=== PATIENT | male | born 1965 | race Caucasian/White ===

== ENCOUNTER 2019-12-02 18:20 | Emergency (ER) | payer MEDICARE, OTHER, SELFPAY ==
--- NOTE | ~2019-12-02 | CT_ITS ---
EXAMINATION: CT abdomen pelvis wo con DATE: 12/02/2019 19:25 INDICATION: Nephrolithiasis. TECHNIQUE: Computed tomography (CT) of the abdomen and pelvis was performed without intravenous contr ast. Automated exposure control and iterative reconstruction technique were employed. The dose-length product was 311.69 mGy-cm. COMPARISON: 01/06/2010 FINDINGS: Minimal dependent atelectasis in the bilateral lower lobes. Heart size is normal. No pericardial or p leural effusion. Small sliding-type hiatal hernia. Adjustable lap banding procedure with normal findi ng angle of 23 degrees. Liver, gallbladder, spleen, pancreas and bilateral adrenal glands are normal. 3 mm nonobstructing stone in the mid left kidney. 3 mm obstructing stone at the proximal right urete r with mild right hydronephrosis. There is mild colonic diverticulosis with a sigmoid predominance. There is no adjacent inflammatory change to suggest diverticulitis. Small bowel and appendix are norm al. Bladder is normal. No free intraperitoneal gas or fluid. No pathologically enlarged abdominal or pelvic lymphadenopathy. Mild lumbar levoscoliosis with mild to moderate spondylosis. IMPRESSION: 1. Obstructing 3 mm proximal right ureteral stone with mild right hydronephrosis. Reviewed, dictated and finalized at location A. IMPRESSION: 1. Obstructing 3 mm proximal right ureteral stone with mild right hydronephrosi s.
[2019-12-02 18:28] VITALS: BP 120/62; PULSE 62; RESP 20; TEMP 36.2; O2SAT 100
--- NOTE | 2019-12-02 19:14 | ED.ABDPAIN ---
HPI - Abdominal Pain General Chief Complaint: Urogenital-Male Stated Complaint: Poss kidney stone Time Seen by Provider: 12/02/19 18:28 Source: patient History of Present Illness HPI narrative: Patient is 54 years old male complaining of right flank pain started 3-hour prior to arrival to the emergency room. Associated with nausea and vomiting once. Pain radiating to right lower quadrant. Patient had similar symptoms secondary to kidney stones. Patient denies any fever, chills. Related Data Home Medications Medication Instructions Recorded Confirmed oxycodone 5 mg PO Q6H PRN 12/02/19 Allergies Allergy/AdvReac Type Severity Reaction Status Date / Time No Known Allergies Allergy Mild Verified 12/02/19 18:38 Review of Systems Review of Systems: Narrative: CONSTITUTIONAL: Denies fever, chills, or sweats. EYES: Denies visual changes, redness, or discharge. ENT: Denies rhinorrhea, congestion, sore throat, or otalgia. CARDIOVASCULAR: Denies chest pain, palpitations, or edema. RESPIRATORY: Denies cough or dyspnea. GASTROINTESTINAL: Right flank tenderness and pain GENITOURINARY: Denies dysuria or hematuria. SKIN: Denies rash or itching. MUSCULOSKELETAL: Denies back pain, joint pain, or myalgia. NEUROLOGIC: Denies headache, numbness, or weakness. PSYCHIATRIC: Denies anxiety or depression. PMFSH Social History Social History Gender identity (if verbalized by the patient): Male Exam Narrative: Exam Narrative: General appearance: Well-developed, well-nourished Skin: Normal color Head: Normocephalic, nontraumatic Eyes: Clear conjunctiva ENT: Oropharynx normal, ears normal, nose normal Neck: Supple, nontender Chest and respiratory: Airway patent, no respiratory distress, no accessory muscle use Heart: Regular rate/rhythm Abdomen: Soft, severe right flank tenderness, no organomegaly, quiet bowel sounds Vascular: Normal peripheral pulses, normal capillary refill. Musculoskeletal: Normal range of motion, nontender back Neurologic: Alert and oriented ?3, MANAGER WOUND CARE is normal as tested, no gross motor deficit Course Course Emergency Course: Improving Vital Signs Vital signs: Vital Signs Temperature 36.2 C L 12/02/19 18:28 Pulse Rate 62 12/02/19 18:28 Respiratory Rate 20 12/02/19 18:28 Blood Pressure 120/62 12/02/19 18:28 Pulse Oximetry 100 12/02/19 18:28 Temperature 36.2 C L 12/02/19 18:28 Pulse Rate 62 12/02/19 18:28 Respiratory Rate 20 12/02/19 18:28 Blood Pressure 120/62 12/02/19 18:28 Pulse Oximetry 100 12/02/19 18:28 MDM - Abdominal Pain MDM Narrative Medical decision making narrative: Kidney stone is my concern. My differential diagnosis as below. Labs, IV fluid, IV morphine and Zofran ordered. CT scan of the abdomen and pelvis without contrast ordered. Further plan to follow Differential Diagnosis Differential diagnosis: Likely abdominal pain, calculus of kidney, constipation and pancreatitis Lab Data Result diagrams: 12/02/19 19:32 12/02/19 19:32 Labs: Lab Results 12/02/19 12/02/19 12/02/19 Range/Units 19:32 19:32 19:32 WBC 12.3 H (4.5-10.0) K/mm3 RBC 4.47 L (4.6-6.20) M/mm3 Hgb 13.5 L (14.0-18.0) g/dL Hct 40.8 L (42.0-52.0) % MCV 91.3 (80-100) fl MCH 30.2 (26-34) pg MCHC 33.1 (32-36) g/dl RDW 14.6 H (11.5-14.5) % Plt Count 262 (150-375) k/mm3 MPV 10.4 (7.4-10.4) fl Immature Gran % (Auto) 0.3 (0-0.5) % Neut % (Auto) 77.7 H (45.5-73.1) % Lymph % (Auto) 15.9 L (18.3-44.2) % Chase % (Auto) 5.6 (2.6-8.5) % Eos % (Auto) 0.0 (0-4.4) %
[2019-12-02] MEDS: SODIUM CHLORIDE 0.9% IV 1,000 ML 999 ML IV CONT (19:20)
[2019-12-02] MEDS: MORPHINE SULFATE 4 MG/ML INJ IV PUSH (19:20)
[2019-12-02 19:39] LABS: Basophils Absolute Auto 0.1 K/mm3 (0.0-0.1); Basophils Percent Auto 0.5 % (0.2-1.2); Hematocrit 40.8 % (42.0-52.0); Hemoglobin 13.5 g/dL (14.0-18.0); Immature Granulocyte Absolute 0.04 K/mm3 (0.00-0.031); Immature Granulocyte Percent A 0.3 % (0-0.5); Lymphocytes Absolute Auto 1.96 K/mm3 (0.9-3.2); Lymphocytes Percent Auto 15.9 % (18.3-44.2); Mean Corpuscular HGB Conc 33.1 g/dl (32-36); Mean Corpuscular Hemoglobin 30.2 pg (26-34); Mean Corpuscular Volume 91.3 fl (80-100); Mean Platelet Volume 10.4 fl (7.4-10.4); Monocytes Absolute Auto 0.7 K/mm3 (0.1-0.6); Monocytes Percent Auto 5.6 % (2.6-8.5); Neutrophils Absolute Auto 9.6 K/mm3 (1.3-6.7); Neutrophils Percent Auto 77.7 % (45.5-73.1); Platelet Count Result 262 k/mm3 (150-375); Red Blood Count 4.47 M/mm3 (4.6-6.20); Red Cell Distribution Width 14.6 % (11.5-14.5); White Blood Count 12.3 K/mm3 (4.5-10.0)
[2019-12-02 19:42] LABS: Add Urine Microscopic? YES; Appearance Urine Clear (Clear); Bilirubin Urine Negative (Negative); Blood Urine 3+ (Negative); Color Urine Yellow (Yellow); Glucose Urine UA Negative (Negative); Ketones Urine Negative (Negative); Leukocyte Esterase Ur Negative LEU/UL (Negative); Mucus Urine Rare /lpf; Nitrate Urine Negative (Negative); Protein Urine 1+ mg/dL (Negative); RBC Urine >75 /hpf (0-2); Specific Grav Ur 1.023 (1.001-1.035); Urobilinogen Urine Negative mg/dL (<2.0)
[2019-12-02 19:50] LABS: Alanine Aminotransferase 29 U/L (4-50); Albumin Level 4.9 g/dL (3.5-5.1); Alkaline Phosphatase 91 U/L (38-126); Aspartate Amino Transferase 34 U/L (17-59); Bilirubin,Total 0.7 mg/dL (0.2-1.3); Blood Urea Nitrogen 17 mg/dL (9-20); Calcium 9.3 mg/dL (8.4-10.2); Carbon Dioxide 26 mmol/L (22-30); Chloride 103 mmol/L (98-107); Estimated CRCL calculation 74 ml/min; Estimated Glomerular Filt Rate > 60; Glucose 128 mg/dL (75-110); Lipase 74 U/L (23-300); Potassium 4.7 mmol/L (3.4-5.0); Sodium 137 mmol/L (137-145)
[2019-12-02] MEDS: HYDROMORPHONE HCL 1 MG/ML INJ 0.5 MG IV PUSH (20:07)
[2019-12-02 21:02] VITALS: BP 131/79; PULSE 74; RESP 19; TEMP 36.4; O2SAT 100
[2019-12-02] MEDS: KETOROLAC 30 MG/ML VIAL (*BKC) IV PUSH (21:24)
[2019-12-02 21:25] VITALS: BP 115/85; PULSE 79; RESP 18; TEMP 37.2; O2SAT 100
== END 2019-12-02 21:26 | disposition home or self-care (01) ==
PROVIDERS: Emergency Provider Emergency Medicine
DX: N13.2 Hydronephrosis with renal and ureteral calculous obstruction (principal)
CPT/HCPCS: 36415; 74176; 80053; 81001; 83690; 85025; 87086; 96361; 96374; 96375; 99284; J1170; J1885; J2270; J7030

== ENCOUNTER 2019-12-05 17:46 | Outpatient (CLI) | payer MEDICARE, OTHER, SELFPAY ==
--- NOTE | ~2019-12-05 | XR_ITS ---
EXAMINATION: XR abdomen/kub 1V INDICATION: Right-sided kidney stone TECHNIQUE: Supine views of the abdomen were obtained on 2 radiographs. COMPARISON: CT, 12/02/2019 FINDINGS: A 5 mm stone projects in the proximal right ureter between the right L4 and L5 transverse p rocesses. The previously described left kidney stone is not definitely identified. Gastric lap band a pparatus is noted. The bowel gas pattern is normal. There are phleboliths of the pelvis. IMPRESSION: 1. Unchanged 5 mm stone in the proximal right ureter. Reviewed, dictated and finalized at location A.
== END 2019-12-05 17:47 | disposition home or self-care (01) ==
PROVIDERS: Visit Provider Urology
DX: N20.1 Calculus of ureter (principal)
CPT/HCPCS: 74018

== ENCOUNTER 2019-12-08 01:39 | Day surgery (SDC) | payer MEDICARE, OTHER, SELFPAY ==
[2019-12-07 13:16] VITALS: BMI 29.9
[2019-12-08] VITALS (9 sets, daily range): BP systolic 100–130; BP diastolic 64–76; PULSE 55–83; RESP 12–18; TEMP 36.2–36.4; O2SAT 98–100
--- NOTE | ~2019-12-08 | XR_ITS ---
EXAMINATION: XR abdomen/kub 1V DATE: 12/08/2019 06:36 INDICATION: Right renal extracorporeal shockwave lithotripsy. TECHNIQUE: A supine view of the abdomen on 2 radiographs was obtained. COMPARISON: 12/05/2019 FINDINGS: No significant change in a 5 mm stone in the proximal right ureter projecting slightly cephalad to th e tip of the right transverse process of L3. Also unchanged is approximately 3 mm stone projecting ov er the mid to lower left kidney. Multiple phleboliths in the pelvis. Catheter insertion with laparosc opic gastric banding procedure projects over the mid abdomen. Normal bowel gas pattern. IMPRESSION: 1. Unchanged nephrolithiasis 3 mm left renal stone and 5 mm stone in the proximal right ureter. Reviewed, dictated and finalized at location A. IMPRESSION: 1. Unchanged nephrolithiasis 3 mm left renal stone and 5 mm stone in the proxim al right ureter.
--- NOTE | 2019-12-08 05:56 | ECG_ITS ---
Measurements Intervals [place] Rate: 74 P: 49 DC: 135 QRS: -18 QRSD: 106 T: 69 QT: 383 QTc: 427 Interpretive Statements SINUS RHYTHM MINIMAL Q WAVES- HIGH LATERAL LEADS BORDERLINE ECG Electronically Signed On 12-08-2019 7:44:27 CDT by Guillaume Godinez D.O.
--- NOTE | 2019-12-08 06:48 | WPDHPUPDATE1 ---
History and Physical Update Update Date/Time: 12/08/19 06:48 History and Physical has been reviewed, including an updated exam of the patient. There are NO changes in the patient's condition. Risks, benefits, and alternatives have been discussed and questions answered. Patient agrees to proceed with procedure.
[2019-12-08] MEDS: LACTATED RINGERS 1,000 ML 30 ML IV CONT (07:00)
--- NOTE | 2019-12-08 07:16 | P.PNAN_ITS ---
Anes - Initial Pre Proc Eval Procedure: Operation Date: 12/08/19 08:30 Proposed Procedures p Right Extracorporeal Shock Wave Lithotripsy - Lenny Correa MD Date/Time: 12/08/19 07:16 Surgeon: Lenny Correa MD Pre Op Diagnosis: right kidney stone Patient Data Age: 54 Gender: M Height: 1.8 m Weight: 97.52 kg Allergies Allergy/AdvReac Type Severity Reaction Status Date / Time No Known Allergies Allergy Mild Verified 12/07/19 13:16 Home Medications Medication Instructions Recorded Confirmed Type ondansetron 4 mg PO Q6H PRN #14 tablet 12/02/19 12/07/19 Rx oxycodone 5 mg PO Q6H PRN 12/02/19 12/07/19 History oxycodone-acetaminophen [Percocet] 1 tablet PO Q4H PRN #24 tablet 12/02/19 12/07/19 Rx tamsulosin [Flomax] 0.4 mg PO DAILY #10 cap 12/02/19 12/07/19 Rx Bitter Melon 900 mg PO DAILY 12/07/19 History Curcumin/Tumeric 1 cap PO DAILY 12/07/19 History Vitamin B-6 1 tablet PO DAILY 12/07/19 12/07/19 History lnbyofkwowl-obo-ezualciye-vitC 2 cap PO DAILY 12/07/19 12/07/19 History [Glucosamine Complex-MSM] lorazepam 0.5 mg PO TID PRN 12/07/19 12/07/19 History niacin 1 tablet PO DAILY 12/07/19 12/07/19 History Patient hx anesthesia problems: none Family hx anesthesia problems: none [facility] Past Medical History Medical History (Updated 12/08/19 @ 07:17 by Jamir Livingston MD) Anxiety Chronic narcotic use Gout Kidney stones, calcium oxalate Social History Social History Gender identity (if verbalized by the patient): Male Anes - Eval Final PreProcedure Day of Procedure 12/08/19 07:16 Patient weight: obese Heart: regular rate and rhythm Lungs: clear to auscultation and normal air movement Airway: Mallampati scale class II Neurological: alert and oriented Last oral intake: >/= 8 hours ASA classification: II Emergent: no Anesthetic plan: proceed Anesthesia type and monitoring: general LMA Informed Consent: The patient's anesthetic plan and its attendant risks and benefits were discussed with the patient/family/POA. Questions were solicited and answers provided to the satisfaction of the patient/family/POA.
[2019-12-08 07:32] LABS: INR 0.9; Prothrombin Time 11.6 Seconds (11.1-14.7)
[2019-12-08 07:33] LABS: Partial Thromboplastin Time 25.3 SECONDS (22.3-36.8)
[2019-12-08] MEDS: ceFAZolin 2 GM/D5W 50 ML 2 GM/50 ML BAG IVPB (08:27)
--- NOTE | 2019-12-08 09:02 | PM.PROC ---
Procedure Note - Detailed Date of procedure: 12/08/19 Pre-op diagnosis: right kidney stone Post-op diagnosis: same Procedure performed: Right ESWL Description of procedure: The patient was brought to the operative suite where he was placed in the supine position on the Dornier lithotripsy table. The focal point of the lithotripter was placed at an 8mm right mid-ureteral calculus. A total of 3000 shocks were delivered at a power setting of 4. There appeared to be good fragmentation of the stone. The patient tolerated the procedure well and was taken to the recovery room in good condition. Anesthesia: GLMA Surgeon: Lenny Correa MD Estimated blood loss (mL): 0 Drains: No Packing: No Pathology: none sent Complications: No immediate complications Condition: stable Disposition: PACU
== END 2019-12-08 11:14 | disposition home or self-care (01) ==
PROVIDERS: Visit Provider Urology
PROC: (CPT 50590; principal; 2019-12-08 08:30)
DX: N20.2 Calculus of kidney with calculus of ureter (principal)
CPT/HCPCS: 50590; 36415; 74018; 85610; 85730; 93005; J0690; J1100; J2250; J2405; J2704; J3010; J7120

== ENCOUNTER 2020-01-02 10:41 | Outpatient (CLI) | payer MEDICARE, OTHER, SELFPAY ==
--- NOTE | ~2020-01-02 | XR_ITS ---
XR abdomen/kub 1V DATE: 01/02/2020 11:07 INDICATION: Urinary tract stone TECHNIQUE: AP projection, 2 views COMPARISON: 12/08/2019 KUB 12/02/[address] abdomen pelvis FINDINGS: Gastric band device is again noted overlying the abdomen. Previously reported 5 mm calcification in the proximal right ureter is no longer detected. No other o bvious urinary tract calcification is noted radiographically. Stable bilateral calcified pelvic phleboliths. The bowel gas pattern is unremarkable, without evidence of obstruction. The psoas shadows are intact. No visceromegaly. Mild thoracic and lumbar scoliosis. IMPRESSION: The proximal right ureteral calcified calculus noted on 12/08/2019 KUB is no longer eviden t Reviewed, dictated and finalized at Location A. Reviewed, dictated and finalized at location B. IMPRESSION: The proximal right ureteral calcified calculus noted on 12/08/2019 K UB is no longer evident
== END 2020-01-02 10:42 | disposition home or self-care (01) ==
PROVIDERS: Visit Provider Urology
DX: N20.1 Calculus of ureter (principal)
CPT/HCPCS: 74018

== ENCOUNTER 2020-04-22 11:31 | Outpatient (CLI) | payer MEDICARE, OTHER, SELFPAY ==
--- NOTE | ~2020-04-22 | XR_ITS ---
XR abdomen/kub 1V DATE: 04/22/2020 11:54 INDICATION: Calcium kidney stone TECHNIQUE: 2 AP views COMPARISON: 01/02/2020 KUB 12/08/2019 KUB FINDINGS: Upper scapular band apparatus overlies the abdomen. Bilateral calcified pelvic phleboliths are noted. No apparent right urinary tract calcified calculus is evident; no significant change since 01/02/2020. The calcified density overlying the proximal right ureter on 12/08/2019 is again not evident, as noted on 01/02/2020 KUB. There is a likely small calcified calculus overlying the mid to lower left kidney, corresponding to a similar nonobstructing calculus noted in similar location on 12/02/2019 CT examination. Nonspecific bowel gas pattern; there are some nondilated gas containing small bowel segments overlyin g particularly left upper and midabdomen and right mid abdomen, but no obstruction is suggested. Ther e is a large amount fecal material in the colon. IMPRESSION: No obvious right urinary tract calcified calculus Faintly calcified small mid to lower left renal nonobstructing calculus is likely still present. Reviewed, dictated and finalized at Location A. Reviewed, dictated and finalized at location A. CATCHER IMPRESSION: No obvious right urinary tract calcified calculus Faintly calcified small mid to lower left renal nonobstructing calculus is like ly still present.
== END 2020-04-22 11:32 | disposition home or self-care (01) ==
LOC: ANHIMG 11:40
PROVIDERS: Visit Provider Urology
DX: N20.0 Calculus of kidney (principal)
CPT/HCPCS: 74018

== ENCOUNTER 2020-07-02 11:48 | Outpatient (CLI) | payer OTHER, MEDICARE, SELFPAY ==
--- NOTE | ~2020-07-02 | XR_ITS ---
EXAMINATION: XR shoulder RT min 2V DATE: 07/02/2020 12:41 INDICATION: Right shoulder pain. TECHNIQUE: 4 views of right shoulder were obtained. COMPARISON: None. FINDINGS: Bone alignment is normal. No fracture. There is mild osteoarthritis of glenohumeral joint a nd acromioclavicular joint. There are suture anchors in humeral head. There is a loose body in the gl enohumeral joint versus subacromial/subdeltoid bursa. IMPRESSION: 1. Mild polyarticular osteoarthritis. 2. Loose body, which may be in the glenohumeral joint or subacromial/subdeltoid bursa. Reviewed, dictated and finalized at location B. ENT CARE ASSISTANT
== END 2020-07-02 11:49 | disposition home or self-care (01) ==
DX: M25.511 Pain in right shoulder (principal)
CPT/HCPCS: 73030

== ENCOUNTER → 2021-09-04 15:56 | Outpatient (CLI) | payer OTHER, MEDICARE, SELFPAY ==
--- NOTE | ~2021-09-04 | MR_ITS ---
EXAMINATION: MR shoulder RT wo con DATE: 09/04/2021 17:18 INDICATION: Right shoulder pain TECHNIQUE: Magnetic resonance imaging (MRI) of the right shoulder was performed without intravenous c ontrast. Sequences included axial PD-weighted FS FSE, coronal oblique PD-weighted FS FSE, coronal obl ique T2-weighted FS FSE, sagittal PD-weighted FS FSE, and sagittal T1-weighted SE. COMPARISON: Right shoulder radiographs dated 07/02/2020 FINDINGS: Coracoacromial arch: Postoperative change of prior acromioplasty with thinning of the acromion. Mild acromioclavicular ost eoarthritis. Rotator cuff: Postoperative change of prior rotator cuff repair with nonmetallic suture anchor tracks along the sup erior facet footplate of the supraspinatus tendon and a couple metallic suture anchors along the more posterior middle and posterior facet footplates of the infraspinatus tendon. There is attenuation of the distal supraspinatus tendon and severe attenuation of the distal infraspinatus tendon but withou t a definitive fluid signal intensity recurrent full-thickness tear defect. There is relative thicken ing of the more medial aspect of the infraspinatus tendon consistent with retraction of a partially t orn portion of the tendon. It is unclear to what extent the attenuated appearance of the tendons refl ect the initial postoperative state or whether there has been progression of partial-thickness tearin g. The teres minor tendon is normal. Moderate subscapularis tendinopathy with multiple foci of suscep tibility artifact along the distal tendon likely related to prior surgery. No discrete subscapularis tendon tear identified. There is some medial retraction and mild fatty atrophy of the visualized por tion of the infraspinatus muscle belly. Biceps tendon, glenoid labrum and glenohumeral cartilage: Tear of the long head biceps tendon with no discernible intra-articular portion of the tendon and wit h significant attenuation but still relatively taut appearance of the extra articular portion of the tendon at the intertubercular groove. The relatively taut appearance of the tendon as well as a likel y suture anchor tract at the floor of the cephalad aspect of the intertubercular groove would be cons istent with prior bicipital tenodesis. Glenoid labrum is normal. Mild glenohumeral osteoarthritis wit h partial thickness cartilage loss with some chondral surface irregularity along the humeral head mos t prominent at the apex and inferomedial margin and mild partial thickness cartilage loss with smooth chondral surface at the cephalad aspect of the glenoid. Fluid: Physiologic amount of fluid in the glenohumeral joint and biceps tendon sheath. No loose osteochondr al bodies. No abnormal fluid in the subacromial/subdeltoid bursa to suggest bursitis. Bones: No fracture or pathologic marrow replacing process. IMPRESSION: 1. Postoperative change of prior rotator cuff repair of the supraspinatus and infraspinatus tendons w ith residual attenuation of the distal aspect of both tendons, severe of the infraspinatus tendon. In the absence of prior postoperative imaging for comparison and is unclear whether this reflects the i mmediate postoperative state of the repair or where there has been recurrent partial thickness tearin g. 2. Additional postoperative change of prior acromioplasty and bicipital tenodesis. 3. Mild glenohumeral and acromioclavicular osteoarthritis. Reviewed, dictated and finalized at location A. IMPRESSION: 1. Postoperative change of prior rotator cuff repair of the supraspinatus and i nfraspinatus tendons with residual attenuation of the distal aspect of both ten dons, severe of the infraspinatus tendon. In the absence of prior postoperative imaging for comparison and
== END ==
PROVIDERS: Visit Provider Pain Medicine Interventional Pain Medicine
DX: M25.511 Pain in right shoulder (principal); Z98.890 Other specified postprocedural states; M19.011 Primary osteoarthritis, right shoulder
CPT/HCPCS: 73221

== ENCOUNTER 2022-04-27 18:18 | Emergency (ER) | payer MEDICARE, SELFPAY ==
[2022-04-27 18:30] VITALS: BP 134/84; PULSE 71; RESP 16; TEMP 36.4; O2SAT 99
--- NOTE | 2022-04-27 19:08 | ED.URI ---
HPI - URI/Sore Throat General Chief Complaint: Upper Respiratory Infection Stated Complaint: Cough, Sinus Time Seen by Provider: 04/27/22 19:04 Source: patient and RN notes reviewed Mode of arrival: ambulatory Limitations: no limitations History of Present Illness HPI Narrative: 56-year-old male presents with concern for a day history sinus congestion, drainage, pain, persistent cough, general malaise. Reports he has been taking some hwbp-ifp-xapbruz medications without relief. He denies fever, sweats. Reports body aches and chills. Denies shortness of breath MD elicited complaint: cough and nasal congestion Related Data Home Medications Medication Instructions Recorded Confirmed Bitter Melon 900 mg PO DAILY 12/07/19 04/27/22 Curcumin/Tumeric 1 cap PO DAILY 12/07/19 04/27/22 Vitamin B-6 1 tablet PO DAILY 12/07/19 04/27/22 ldlsdpggbyw-aii-zrswkibgs-vitC 2 cap PO DAILY 12/07/19 04/27/22 capsule (Glucosamine Complex-MSM capsule) lorazepam 0.5 mg tablet 0.5 mg PO TID PRN Spasms 12/07/19 04/27/22 niacin 1 tablet PO DAILY 12/07/19 04/27/22 hydrocodone 5 mg-acetaminophen 325 1 tablet PO Q8H PRN pain 04/27/22 04/27/22 mg tablet sertraline 50 mg tablet 50 mg PO DAILY 04/27/22 04/27/22 zolpidem 10 mg tablet 10 mg PO HS 04/27/22 04/27/22 Allergies Allergy/AdvReac Type Severity Reaction Status Date / Time No Known Allergies Allergy Mild Verified 04/27/22 18:22 Review of Systems Review of Systems: CONSTITUTIONAL: Reports malaise, chills. Denies sweats, or fever. EYES: Denies visual changes, redness, or discharge. ENT: Reports rhinorrhea, congestion, sinus pain. Denies otalgia and sore throat. CARDIOVASCULAR: Denies chest pain, palpitations, or edema. RESPIRATORY: Reports persist cough. Denies dyspnea. GASTROINTESTINAL: Denies abdominal pain, nausea, vomiting, diarrhea SKIN: Denies rash or itching. MUSCULOSKELETAL: Reports myalgia. NEUROLOGIC: Denies headache. All systems reviewed & are unremarkable except as noted in HPI and below [facility] Past Medical History Medical History (Updated 04/27/22 @ 19:13 by Michelle Whatley NP) Anxiety Chronic narcotic use Gout Kidney stones, calcium oxalate Social History Social History Gender identity (if verbalized by the patient): Male Comments At time of signature, agree with nursing past medical, surgical, social and family history. There is no relevant family history pertinent to the presenting complaint Exam Narrative: GENERAL: Well-appearing, well-nourished, and in no acute distress. HEAD: Normocephalic EYES: PERRLA, conjunctivae clear ENT: Nares clear, turbinates edematous and erythematous, clear discharge. Mucous membranes moist. TM pearly pina with dull light reflex bilaterally; no tragal tenderness. Oropharynx not erythematous without lesions. Tonsils not enlarged and without exudate, no drooling, no hoarseness, no trismus, uvula midline. NECK: Supple. No lymphadenopathy CHEST: Clear to auscultation, breath sounds equal. No wheezing, rhonchi, rales, or stridor. No respiratory distress, speaks in full sentences. HEART: Regular rate and rhythm. No murmur heard. SKIN: Warm, dry, no rash. NEURO: Alert and oriented x3. PSYCH: Normal mood and affect Course Course Emergency Course: Patient is aware of diagnosis, understands and agrees to treatment plan. Anticipatory guidance given. Patient agrees to follow-up as directed and is aware of reasons to seek care at the emergency department. Portions of this record may have been created with voice recognition software Level of Care: Express Care Visit Vital Signs Vital signs: Vital Signs Temperature 97.6 F 04/27/22 18:30 Pulse Rate 71 04/27/22 18:30 Respiratory Rate 16 04/27/22 18:30 Blood Pressure 134/84 04/27/22 18:30 Pulse Oximetry 99 04/27/22 18:30 Oxygen Delivery Room Air 04/27/22 18:30 Temperature 97.6 F 04/27/22 18:30 Pulse Ra
== END 2022-04-27 19:22 | disposition home or self-care (01) ==
PROVIDERS: Emergency Provider Nurse Practitioner
DX: J32.9 Chronic sinusitis, unspecified (principal); J40 Bronchitis, not specified as acute or chronic; M10.9 Gout, unspecified; F41.9 Anxiety disorder, unspecified
CPT/HCPCS: 99213; G0463

== ENCOUNTER 2022-04-29 10:21 | Inpatient (IN) | payer MEDICARE, OTHER, SELFPAY ==
[2022-04-29] VITALS (18 sets, daily range): BP systolic 90–135; BP diastolic 55–86; PULSE 56–89; RESP 13–26; TEMP 36.1–37.6; O2SAT 97–100
--- NOTE | ~2022-04-29 | US_ITS ---
EXAMINATION: US scrotum doppler DATE: 04/30/2022 16:49 INDICATION: Testicular pain TECHNIQUE: Testicular sonogram utilizing grayscale and Doppler COMPARISON: None. FINDINGS: The right testis measures 5.2 x 2.3 x 2.9 cm. The left testis measures 4.5 x 2.3 x 2.9 cm. There is normal vascular flow to both testes. The right epididymis is normal with normal vascular christopher w. The left epididymis is normal with normal vascular flow. There are small bilateral hydroceles. IMPRESSION: 1. No sonographic correlate for the patient's symptoms. Reviewed, dictated and finalized at location F. ING ROOM ATTENDANT
--- NOTE | ~2022-04-29 | CT_ITS ---
EXAMINATION: CT abdomen pelvis w con DATE: 05/04/2022 14:49 INDICATION: Worsening abdominal pain. Perforated diverticulitis. TECHNIQUE: Computed tomography (CT) of the abdomen and pelvis was performed with 100 mL Omnipaque-350 intravenous contrast. Automated exposure control and iterative reconstruction technique were employe d. The dose-length product was 907.25 mGy-cm. COMPARISON: 04/29/2022 FINDINGS: Small posterior layering bilateral pleural effusions with dependent and discoid atelectasis in the bi lateral lower lobes and additional mild dependent atelectasis in the lingula. Heart size is normal. N o pericardial or pleural effusion. Small sliding-type hiatal hernia. Adjustable laparoscopic banding with normal phi angle of 25 degrees. Liver, spleen, pancreas, bilateral adrenal glands and kidneys ar e normal. Dependently layering high attenuation material in the otherwise normal-appearing gallbladde r which could represent gallbladder sludge or stones. There is moderate colonic diverticulosis with a sigmoid predominance. There is prominent loculated co llection of primarily gas with negligible amount of dependently layering fluid in the left hemipelvis along the anteromedial margin of the left psoas muscle and iliac vessels suspicious for sequela of p erforated sigmoid diverticulitis. There is additional smaller 2.5 x 2.0 cm gas predominant mixed gas and fluid collection more anteriorly and inferiorly in the left hemipelvis near the orifice of small fat-containing left inguinal and femoral hernias. There is a small amount of scattered nonloculated g as and fluid scattered amongst the mesentery in the pelvis an additional small amounts of free intrap eritoneal gas or cephalad in the abdomen bilaterally below the diaphragm and at the gallbladder fossa . Normal appendix. No bowel obstruction. Bladder is normal. No pathologically enlarged abdominal or pel wang lymphadenopathy. Mild to moderate lumbar spondylosis. IMPRESSION: 1. Perforated sigmoid diverticulitis with scattered small amounts of nonloculated free intraperitonea l gas and fluid in the abdomen and pelvis and larger loculated primarily gas containing retroperitone al collections in the left pelvis with only minimal amount of dependent fluid. 2. Small bilateral pleural effusions with atelectasis in the bilateral lower lung. 3. Subtle higher attenuation material dependently in the normal gallbladder which could represent slu dge or gallstones. 4. Small sliding-type hiatal hernia with adjustable laparoscopic gastric band in expected position. 5. Small fat-containing left inguinal and femoral hernias. Reviewed, dictated and finalized at location A. CLABLE MATERIALS SORTER IMPRESSION: 1. Perforated sigmoid diverticulitis with scattered small amounts of nonloculat ed free intraperitoneal gas and fluid in the abdomen and pelvis and larger locu lated primarily gas containing retroperitoneal collections in the left pelvis w ith only minimal amount of dependent fluid. 2. Small bilateral pleural effusions with atelectasis in the bilateral lower ton ng. 3. Subtle higher attenuation material dependently in the normal gallbladder whi ch could represent sludge or gallstones. 4. Small sliding-type hiatal hernia with adjustable laparoscopic gastric band i n expected position. 5. Small fat-containing left inguinal and femoral hernias.
--- NOTE | ~2022-04-29 | CT_ITS ---
EXAMINATION: CT abdomen pelvis w con DATE: 04/29/2022 11:17 INDICATION: Mid abdominal pain. TECHNIQUE: Computed tomography (CT) of the abdomen and pelvis was performed with 100 mL Omnipaque 350 intravenous contrast. Automated exposure control and iterative reconstruction technique were employe d. The dose-length product was 787.16 mGy-cm. COMPARISON: CT abdomen and pelvis 12/02/2019 FINDINGS: The visualized portions of the lung bases demonstrated mild atelectasis. No pleural effusio n. The heart size is normal. No pericardial effusion. There is a lap band in expected position. The l iver, gallbladder, spleen, pancreas, and adrenal glands are normal. There is a 1 mm stone in right ki dney. There is a 1 mm stone in left kidney. There are scattered diverticula in the colon. There is fa t stranding around the sigmoid colon, consistent with diverticulitis. There are foci of extraluminal gas near the sigmoid colon, consistent with perforation. There are no dilated loops of bowel. The alex endix is normal. There are no pathologically enlarged lymph nodes. There is no free intraperitoneal f luid. There are changes of left inguinal hernia repair. There is mild lumbar spondylosis. IMPRESSION: 1. Acute sigmoid diverticulitis with microperforation. No drainable abscess. Reviewed, dictated and finalized at location B. TRICIAN BUS
--- NOTE | ~2022-04-29 | XR_ITS ---
EXAMINATION: XR abdomen/kub 1V INDICATION: Kidney stones TECHNIQUE: Supine views of the abdomen were obtained on 2 radiographs. COMPARISON: 04/22/[address] from yesterday FINDINGS: The small kidney stone described on yesterday's CT scan are not definitely identified, like ly obscured by bowel contents. There are phleboliths of the pelvis. Changes of gastric lap band surge ry are noted. There is mild osteoarthritis of the hips. IMPRESSION: 1. No definite urolithiasis identified. Reviewed, dictated and finalized at location F. NCED MANUFACTURING ASSOCIATE
--- NOTE | ~2022-04-29 | XR_ITS ---
EXAMINATION: XR abdomen/kub 1V DATE: 05/04/2022 11:11 INDICATION: Abdominal pain. Right flank pain. TECHNIQUE: A supine view of the abdomen on 2 radiographs was obtained. COMPARISON: CT abdomen and pelvis 04/29/2022 FINDINGS: There are no dilated loops of bowel. There is a lap band in expected position. There are ph leboliths in the pelvis. IMPRESSION: 1. Nonobstructive bowel gas pattern. Reviewed, dictated and finalized at location A. UNT FINANCIAL MANAGER
[2022-04-29] MEDS: HYDROmorphone HCL INJ (*CRX) 1 MG/ML SYR 0.5 MG IV PUSH ×5 (10:42→17:59)
[2022-04-29] MEDS: SODIUM CHLORIDE 0.9% IV 1,000 ML 999 ML IV CONT ×2 (10:42→13:31)
[2022-04-29] MEDS: ONDANSETRON INJ 4 MG/2 ML VIAL IV PUSH (10:43)
[2022-04-29 10:53] LABS: Basophils Percent Auto 0.3 % (0.2-1.2); Hematocrit 42.2 % (42.0-52.0); Hemoglobin 14.4 g/dL (14.0-18.0); Immature Granulocyte Percent A 0.8 % (0-0.5); Lymphocytes Absolute Auto 4.12 K/mm3 (0.9-3.2); Lymphocytes Percent Auto 33.6 % (18.3-44.2); Mean Corpuscular HGB Conc 34.1 g/dl (32-36); Mean Corpuscular Volume 90.9 fl (80-100); Mean Platelet Volume 10.2 fl (7.4-10.4); Monocytes Absolute Auto 0.5 K/mm3 (0.1-0.6); Monocytes Percent Auto 4.2 % (2.6-8.5); Neutrophils Absolute Auto 7.5 K/mm3 (1.3-6.7); Neutrophils Percent Auto 61.1 % (45.5-73.1); Platelet Count Result 308 k/mm3 (150-375); Red Blood Count 4.64 M/mm3 (4.6-6.20); Red Cell Distribution Width 14.6 % (11.5-14.5); White Blood Count 12.3 K/mm3 (4.5-10.0)
--- NOTE | 2022-04-29 10:57 | ED.ABDPAIN ---
HPI - Abdominal Pain General Chief Complaint: Abdominal Pain Stated Complaint: abd pain with diarrhea Time Seen by Provider: 04/29/22 10:30 Source: patient, family and EMS Mode of arrival: EMS Limitations: clinical condition History of Present Illness HPI narrative: 56 years old white male came by ambulance to the emergency room because of sudden onset of severe pain across lower abdomen that started 2 hours prior to arrival to the emergency room. Patient denies any nausea, vomiting. Patient reports 1 bowel movement of loose stool this morning followed by the pain he denies any fever, chills, nausea, vomiting, urinary symptoms feeling numb in his testicles Related Data Home Medications Medication Instructions Recorded Confirmed Bitter Melon 900 mg PO DAILY 12/07/19 04/27/22 Curcumin/Tumeric 1 cap PO DAILY 12/07/19 04/27/22 Vitamin B-6 1 tablet PO DAILY 12/07/19 04/27/22 hnmekwhvsyh-xtk-avmawcods-vitC 2 cap PO DAILY 12/07/19 04/27/22 capsule (Glucosamine Complex-MSM capsule) lorazepam 0.5 mg tablet 0.5 mg PO TID PRN Spasms 12/07/19 04/27/22 niacin 1 tablet PO DAILY 12/07/19 04/27/22 hydrocodone 5 mg-acetaminophen 325 1 tablet PO Q8H PRN pain 04/27/22 04/27/22 mg tablet sertraline 50 mg tablet 50 mg PO DAILY 04/27/22 04/27/22 zolpidem 10 mg tablet 10 mg PO HS 04/27/22 04/27/22 Allergies Allergy/AdvReac Type Severity Reaction Status Date / Time No Known Allergies Allergy Mild Verified 04/29/22 10:48 Review of Systems Review of Systems: All systems reviewed & are unremarkable except as noted in HPI and below PMFSH Past Medical History Medical History Anxiety Chronic narcotic use Gout Kidney stones, calcium oxalate Social History Social History Gender identity (if verbalized by the patient): Male Exam Narrative: General appearance: Well-developed, well-nourished, in pain Skin: Normal color Head: Normocephalic, nontraumatic Eyes: Clear conjunctiva ENT: Oropharynx normal, ears normal, nose normal Neck: Supple, nontender Chest and respiratory: Airway patent, no respiratory distress, no accessory muscle use Heart: Regular rate/rhythm Abdomen: Severe diffuse tenderness across lower abdomen, positive guarding and rebound. Quiet bowel sounds Vascular: Normal peripheral pulses, normal capillary refill. Musculoskeletal: Normal range of motion, nontender back Neurologic: Alert and oriented ?3, ORCHESTRA LEADER is normal as tested, no gross motor deficit Course Consultations Consultation #1: Dr. Fernandez Date: 04/29/22 Time: 12:13 Vital Signs Vital signs: Vital Signs Temperature 36.1 C L 04/29/22 10:27 Pulse Rate 56 L 04/29/22 10:27 Respiratory Rate 18 04/29/22 10:27 Blood Pressure 104/81 04/29/22 10:27 Pulse Oximetry 100 04/29/22 10:27 Oxygen Delivery Room Air 04/29/22 10:27 Temperature 36.1 C L 04/29/22 10:27 Pulse Rate 69 04/29/22 11:23 Respiratory Rate 20 04/29/22 11:23 Blood Pressure 117/69 04/29/22 11:23 Pulse Oximetry 100 04/29/22 11:23 Oxygen Delivery Room Air 04/29/22 10:27 MDM - Abdominal Pain Differential Diagnosis Differential diagnosis: Likely abdominal pain, acute appendicitis, calculus of kidney, diverticulitis, small bowel obstruction and other (Perforated viscus, ischemic colitis) Lab Data Result diagrams: 04/29/22 10:38 04/29/22 10:38 Labs: Lab Results 04/29/22 04/29/22 04/29/22 Range/Units 10:38 10:38 10:38 WBC 12.3 H (4.5-10.0) K/mm3 RBC 4.64 (4.6-6.20) M/mm3 Hgb 14.4 (14.0-18.0) g/dL Hct 42.2 (42.0-52.0) %
[2022-04-29 10:58] LABS: Albumin Level 5.1 g/dL (3.5-5.1); Alkaline Phosphatase 85 U/L (38-126); Anion Gap 18 mmol/L (8-16); Aspartate Amino Transferase 42 U/L (17-59); Bilirubin,Total 0.7 mg/dL (0.2-1.3); Blood Urea Nitrogen 13 mg/dL (9-20); Calcium 9.3 mg/dL (8.4-10.2); Carbon Dioxide 23 mmol/L (22-30); Chloride 100 mmol/L (98-107); Estimated CRCL calculation 62 ml/min; Estimated Glomerular Filt Rate 58; Glucose 160 mg/dL (65-110); Lipase 50 U/L (23-300); Potassium 3.6 mmol/L (3.4-5.0); Sodium 141 mmol/L (137-145)
[2022-04-29 11:09] LABS: Alanine Aminotransferase 51 U/L (6-50)
[2022-04-29] MEDS: metroNIDAZOLE 500 MG/ISO 100ML 500 MG/100 ML BAG 100 MG IVPB ×3 (12:24→23:36)
--- NOTE | 2022-04-29 13:00 | PM.IMHP ---
H&P: HPI History of Present Illness Date/Time: 04/29/22 13:00 Chief Complaint: Abdominal pain. Narrative: This is a 56-year-old with history of diverticulitis and kidney stones who presented to the ED from home for evaluation of abdominal pain. He felt okay when he got up this morning and reports having a soft bowel movement. Shortly thereafter he developed severe sharp pain in the left lower quadrant which was unrelenting for 2 hours before he came in for evaluation. CT of the abdomen pelvis showed acute sigmoid diverticulitis with micro perforation without drainable abscess and he is being admitted in this setting for IV antibiotics and surgery consult. At the time my evaluation he is moaning in pain despite receiving a total of 2 milligrams of dilaudid over the past 2 hours. 4 milligrams morphine ordered x1 and that has helped his pain tremendously. He denies fever, chills, sweats, nausea, and vomiting. Review of Systems Review of Systems: Twelve systems were reviewed and are negative except for as per HPI. [facility] Past Medical History Medical History (Updated 04/29/22 @ 20:57 by Corinne Browning PA-C) Anxiety Chronic pain syndrome Diverticulitis Gout Kidney stones, calcium oxalate Obstructive sleep apnea Resolved with weight loss following lap band procedure. Surgical History Surgical History (Updated 04/29/22 @ 20:54 by Corinne Browning PA-C) History of arthroscopy of both shoulders History of hernia repair History of laparoscopic adjustable gastric banding Family History Family History Father FH: kidney cancer Social History Social History (Updated 04/29/22 @ 20:54 by Corinne Browning PA-C) Social History: Surrogate medical decision maker: Elizabeth Painter, mother. Code status: Full code. Smoking packs per day: 1 Smoking cigarettes per day: 20.0 Years smoked: 25 Smoking pack-years: 25.00 Smoking status: Former smoker Alcohol intake: current Drinks per week: 1 Substance use: never Substance use type: does not use Lack of Transportation: No Lack of Food: Never True Current Housing: I Have Housing Concerned About Future Housing: No Difficulty Paying Gas/Electric Bills: No Difficulty Paying for Meds: No Currently Unemployed: No Education: Associate Degree Difficulty w/ Childcare or Family Care: No Additional living arrangements comments: The patient lives in his own home. Additional occupation/education comments: On disability, previously worked in [employer]. Spiritual care concerns: No Meds Home Medications and Allergies Home Medications Medication Instructions Recorded Confirmed Type Bitter Melon 900 mg PO DAILY 12/07/19 04/29/22 History Curcumin/Tumeric 1 cap PO DAILY 12/07/19 04/29/22 History Vitamin B-6 1 tablet PO DAILY 12/07/19 04/29/22 History zhfgyflbqpm-vuf-scfwxulka-vitC 2 cap PO DAILY 12/07/19 04/29/22 History capsule (Glucosamine Complex-MSM capsule) lorazepam 0.5 mg tablet 0.5 mg PO TID PRN Spasms 12/07/19 04/29/22 History amoxicillin 875 mg-potassium 1 tablet PO Q12H 10 days #20 tabs 04/27/22 04/29/22 Rx clavulanate 125 mg tablet methylprednisolone 4 mg tablets in See Rx Instructions PO .COMPLEX 04/27/22 04/29/22 Rx a dose pack (Medrol (Jose)) #21 ea promethazine-DM 6.25 mg-15 mg/5 mL 5 ml PO Q4-6H PRN cough #120 mL 04/27/22 04/29/22 Rx oral syrup sertraline 50 mg tablet 50 mg PO DAILY 04/27/22 04/29/22 History zolpidem 10 mg tablet 10 mg PO HS 04/27/22 04/29/22 History hydrocodone 7.5 mg-acetaminophen 1 tablet PO Q6H PRN Pain 04/29/22 04/29/22 History 325 mg tablet Allergies Allergy/AdvReac Type Severity Reaction Status Date / Time No Known Allergies Allergy Mild Verified 04/29/22 10:48 Vital Signs Vital Signs - 24 hr 04/29/22 10:27 04/29/22 11:23 04/29/22 13:16 Temperature 97.0 F L Pulse Rate 56 L 69 74 Respiratory Rate 1
[2022-04-29] MEDS: LORazepam INJ (*CRX) 2 MG/ML VIAL 1 MG IV PUSH (13:04)
[2022-04-29] MEDS: SODIUM CHLORIDE 0.9% IV 1,000 ML 150 ML IV CONT ×2 (13:31→22:01)
[2022-04-29] MEDS: MORPHINE SULFATE (*CRX) 4 MG/ML INJ IV PUSH ×3 (13:42→23:39)
[2022-04-29 13:43] LABS: Reflex Lactic Acid Yes or No Add Lactic
[2022-04-29] MEDS: SODIUM CHLORIDE 0.9% IV 500 ML 999 ML IV CONT (14:32)
--- NOTE | 2022-04-29 14:53 | ADMGEN ---
This patient, Yevgeniy Painter, was admitted to [facility] Surg Room 315-02. Patient/family oriented to hospital policies and general routines including ID bracelet, bed and alarms, visiting hours, pain management, procedures, bathroom and other care routines, personal items, smoking policy, room service/diet, and visiting hours. Information on how to activate the Rapid Response Team has been discussed. Patient/Family are encouraged to report perceived risks to care and to ask questions if they do not understand what they are told or what they should do.
[2022-04-29 15:29] LABS: Lactic Acid 2.8 mmol/L (0.7-2.0)
--- NOTE | 2022-04-29 18:01 | PC.NURSE ---
pt would like to add his fiance, Frank Ivory, to his contact list
[2022-04-30] MEDS: MORPHINE SULFATE (*CRX) 4 MG/ML INJ IV PUSH ×4 (02:32→12:47)
[2022-04-30] MEDS: SODIUM CHLORIDE 0.9% IV 1,000 ML 150 ML IV CONT (02:32)
[2022-04-30] MEDS: metroNIDAZOLE 500 MG/ISO 100ML 500 MG/100 ML BAG 100 MG IVPB ×3 (05:10→18:10)
[2022-04-30 06:00] VITALS: BP 131/72; PULSE 94; RESP 18; TEMP 37.1; O2SAT 95
[2022-04-30 07:20] LABS: Hematocrit 37.3 % (42.0-52.0); Hemoglobin 12.5 g/dL (14.0-18.0); Mean Corpuscular HGB Conc 33.5 g/dl (32-36); Mean Corpuscular Hemoglobin 31.1 pg (26-34); Mean Corpuscular Volume 92.8 fl (80-100); Mean Platelet Volume 10.9 fl (7.4-10.4); Platelet Count Result 230 k/mm3 (150-375); Red Blood Count 4.02 M/mm3 (4.6-6.20); Red Cell Distribution Width 14.9 % (11.5-14.5); White Blood Count 7.9 K/mm3 (4.5-10.0)
[2022-04-30 07:32] LABS: Alanine Aminotransferase 30 U/L (6-50); Alkaline Phosphatase 63 U/L (38-126); Anion Gap 15 mmol/L (8-16); Aspartate Amino Transferase 26 U/L (17-59); Bilirubin,Total 1.8 mg/dL (0.2-1.3); Blood Urea Nitrogen 13 mg/dL (9-20); Calcium 8.2 mg/dL (8.4-10.2); Carbon Dioxide 21 mmol/L (22-30); Chloride 103 mmol/L (98-107); Estimated CRCL calculation 88 ml/min; Estimated Glomerular Filt Rate > 60; Glucose 104 mg/dL (65-110); Magnesium 1.4 mg/dL (1.6-2.3); Potassium 3.6 mmol/L (3.4-5.0); Sodium 139 mmol/L (137-145)
[2022-04-30] MEDS: LORazepam INJ (*CRX) 2 MG/ML VIAL 0.5 MG IV PUSH (08:52)
[2022-04-30 09:58] LABS: Lactic Acid Reflex 1.5 mmol/L (0.7-2.0)
--- NOTE | 2022-04-30 10:14 | PC.NURSE ---
pt's mother, Elizabeth, called asking for an update. I answered her questions and explained what was being done to attempt to control pt's pain. She stated she was pleased with our efforts.
[2022-04-30] MEDS: MAGNESIUM SULFATE 3GM/D5W100ML 3 GM/100 ML BAG IVPB (11:53)
[2022-04-30] MEDS: ENOXAPARIN 40 MG/0.4 ML SYRINGE SUB-Q (12:46)
[2022-04-30 13:24] LABS: Appearance Urine Clear (Clear); Bilirubin Urine Negative (Negative); Blood Urine Trace-intact (Negative); Color Urine Yellow (Yellow); Glucose Urine UA Negative (Negative); Ketones Urine Negative (Negative); Leukocyte Esterase Ur Negative LEU/UL (Negative); Nitrate Urine Negative (Negative); Protein Urine 1+ mg/dL (Negative); Specific Grav Ur 1.025 (1.001-1.035); Urobilinogen Urine 0.2 mg/dL (<2.0)
[2022-04-30 13:32] LABS: Bacteria Urine Trace /hpf; Mucus Urine Rare /lpf; RBC Urine 0-2 /hpf (0-2); WBC Urine 0-3 /hpf
[2022-04-30 13:39] LABS: Add Urine Microscopic? YES
[2022-04-30 14:00] VITALS: BP 115/66; PULSE 106; RESP 16; TEMP 36.4; O2SAT 90
--- NOTE | 2022-04-30 14:38 | PM.IMPN ---
Progress Note: A&P Assessment and Plan (1) Sepsis: Code(s): A41.9 - Sepsis, unspecified organism Status: Acute Assessment and Plan: Patient met sepsis criteria with leukocytosis, hypotension, lactic acidosis. Source of infection secondary to acute diverticulitis Continue with IV fluids Leukocytosis has resolved Patient remains afebrile Lactic acidosis has resolved with IV fluids Blood cultures are pending (2) Perforation of sigmoid colon due to diverticulitis: Code(s): K57.20 - Diverticulitis of large intestine with perforation and abscess without bleeding Status: Acute Assessment and Plan: CT of abdomen/pelvis showed acute sigmoid diverticulitis with microperforation without evidence of drainable abscess collection Continue Levaquin and Flagyl NPO diet Analgesics available as needed Appreciate general surgeon consultation (3) Suprapubic pain: Code(s): R10.2 - Pelvic and perineal pain Status: Acute Assessment and Plan: Patient complaints of suprapubic discomfort and testicular pain with urination Scrotal exam is benign. No clinical findings to suggest torsion or other urologic emergency however will proceed with scrotal US to rule out Possibly referred pain secondary to acute diverticulitis. CT a/p shows bilateral 1 mm kidney stones unlikely to be etiology UA with only trace blood, negative nitrates and leuk esterase Will obtain KUB to assess migration of stones Consider urology consultation if no improvement (4) Chronic pain syndrome: Code(s): G89.4 - Chronic pain syndrome Status: Chronic Assessment and Plan: Continue analgesics (5) Anxiety: Code(s): F41.9 - Anxiety disorder, unspecified Status: Chronic Assessment and Plan: No acute issues. 0.5 milligrams IV Ativan p.r.n. as needed while NPO. Subjective Date/time seen: 04/30/22 14:38 Interval history: Date of service: 04/30/2022 Yevgeniy Painter is a 56-year-old male with a history of LESLIE, kidney stones, chronic pain syndrome, diverticulitis, and gout who is seen in follow-up for perforated sigmoid diverticulitis. He is feeling very poorly today. His pain was 10/10 this morning but did improve slightly with analgesics. Currently his pain is 7-8/10. He had just sat up to urinate in urinal and this movement caused his pain to worsen. He endorsed dysuria and also testicular pain with urination and movement. He denies any testicular swelling. Denies penile discharge. He does have low abdominal pain, mostly concentrated in the suprapubic region which he describes as sharp and stabbing in nature. He did have some nausea this morning when he stood up which he attributes to pain but no episodes of emesis. No fevers or chills. He states that he has no appetite. He had an episode of diarrhea yesterday but no stools today. Denies any blood in his stool. Denies shortness of breath, cough, chest pain. No headache. Review of Systems Review of Systems: All systems reviewed & are unremarkable except as noted in HPI and below Exam Narrative: General: Well-nourished, well-appearing 56-year-old male, sitting up in bed, comfortable, NARD Neuro: awake, alert and oriented x4, speech clear, no focal neuro deficits noted HEENMT: normocephalic, atraumatic, EOMI, sclerae anicteric, moist oral mucosa Respiratory: clear to auscultation bilaterally, nonlabored breathing Cardio: regular rate, regular rhythm with S1-S2 Abdomen: nondistended, normoactive bowel sounds, soft, tender to palpation in lower abdomen and suprapubic region : No scrotal edema or tenderness to palpation Extremities: no edema, erythema, or tenderness to palpation, DP pulses 2+ bilaterally Skin: no rashes or lesions, warm and dry Psych: appropriate mood and affect, judgment and insight intact Objective Data Vital Signs Vital Signs: Vital Signs - 24 hr 04/29/22 15:13 04/29/22
[2022-04-30] MEDS: IBUPROFEN IV 800 MG/200 ML 800 MG/200 ML BAG 400 MG IVPB (15:46)
[2022-04-30] MEDS: KCL 40 MEQ/D5/0.9% SOD CHL 1,000 ML 100 ML IV CONT (15:46)
[2022-04-30] MEDS: IBUPROFEN IV 800 MG/200 ML 800 MG/200 ML BAG 200 MG IVPB (17:06)
--- NOTE | 2022-04-30 17:14 | PM.CNGS ---
Assessment and Plan Assessment and plan (1) Diverticulitis of colon with perforation: Code(s): K57.20 - Diverticulitis of large intestine with perforation and abscess without bleeding Status: Acute Assessment and Plan: Patient is still pretty uncomfortable. Because he is not opioid naive, I will go ahead and increase the dose of his narcotics as well as adding IV ibuprofen on a scheduled dose. Recommend continuing bowel rest and IV antibiotics as well as analgesics. I explained to the patient that usually diverticulitis does resolve without the requirement of emergency surgery. I explained that if emergency surgery is required, usually some type of ostomy accompanies this surgery. I also explained that elective surgery can be done once the infection is resolved that can alleviate recurrences of this disease. For now I would continue antibiotics and bowel rest as before. I will continue follow along with you. Thank you for asking me to see this patient in consultation. (2) Chronic narcotic use: Code(s): F11.90 - Opioid use, unspecified, uncomplicated Status: Chronic Assessment and Plan: P.r.n. shoulder pain Summers 7.5325 History of Present Illness Consult details Consult date: 04/30/22 Reason for consult: abdominal pain Requesting physician: Diya Short MD Narrative: Patient is a 56-year-old man who developed severe lower abdominal and suprapubic pain about 2 hours before coming to the emergency room yesterday. He ate breakfast and had a bowel movement and almost like turning on a switch after the bowel movement the pain began. He came to the emergency room pretty much writhing in pain. [place] [id number] [place] scan of the abdomen pelvis showed evidence of diverticulitis with micro perforation but no abscess or evidence of fecal extravasation. Patient does take Summers 7.5325 for chronic right shoulder pain. He admits to taking this about 4 times a week although it is ordered b.i.d. p.r.n.. He was still pretty uncomfortable when I saw him this morning. He is seen now in consultation regarding acute diverticulitis. He did have diverticulitis 1 time previously but it was no where near as severe as this episode. He reports he did have a colonoscopy 2 years ago at an outpatient facility in [place]. He was told there were a couple of polyps but otherwise the colonoscopy was negative. Review of Systems Review of Systems: All systems reviewed & are unremarkable except as noted in HPI and below (HPI and those items noted below) Constitutional: Constitutional: Denies chills and Denies fever(s) Cardiovascular: Cardiovascular: Denies chest pain, Denies diaphoresis, Denies dyspnea and Denies paroxysmal nocturnal dyspnea Respiratory: Respiratory: Denies chest congestion, Denies cough and Denies dyspnea Integumentary/Breasts: Skin/Breast: Denies lesions and Denies rash PMFSH Past Medical History Medical History Anxiety Chronic pain syndrome Diverticulitis Gout Kidney stones, calcium oxalate Obstructive sleep apnea Resolved with weight loss following lap band procedure. Surgical History Surgical History History of arthroscopy of both shoulders History of hernia repair History of laparoscopic adjustable gastric banding Family History Family History Father FH: kidney cancer Social History Social History Social History: Surrogate medical decision maker: Elizabeth Painter, mother. Code status: Full code. Smoking packs per day: 1 Smoking cigarettes per day: 20.0 Years smoked: 25 Smoking pack-years: 25.00 Smoking status: Former smoker Alcohol intake: current Drinks per week: 1 Substance use: never Substance use type: does n
[2022-04-30 19:47] VITALS: O2SAT 92
[2022-04-30 19:56] VITALS: BP 98/59; PULSE 78; RESP 18; TEMP 36.8; O2SAT 96
[2022-05-01] MEDS: IBUPROFEN IV 800 MG/200 ML 800 MG/200 ML BAG 400 MG IVPB ×5 (00:33→23:12)
[2022-05-01] MEDS: metroNIDAZOLE 500 MG/ISO 100ML 500 MG/100 ML BAG 75 MG IVPB (00:33)
[2022-05-01] MEDS: KCL 40 MEQ/D5/0.9% SOD CHL 1,000 ML 100 ML IV CONT (01:04)
[2022-05-01 04:00] VITALS: BP 90/58; PULSE 80; RESP 18; TEMP 36.5; O2SAT 96
[2022-05-01] MEDS: metroNIDAZOLE 500 MG/ISO 100ML 500 MG/100 ML BAG 100 MG IVPB ×4 (05:00→23:52)
[2022-05-01 07:33] LABS: Hematocrit 34.5 % (42.0-52.0); Hemoglobin 11.4 g/dL (14.0-18.0); Mean Corpuscular Hemoglobin 30.6 pg (26-34); Mean Corpuscular Volume 92.5 fl (80-100); Mean Platelet Volume 10.9 fl (7.4-10.4); Platelet Count Result 186 k/mm3 (150-375); Red Blood Count 3.73 M/mm3 (4.6-6.20); Red Cell Distribution Width 15.2 % (11.5-14.5); White Blood Count 7.2 K/mm3 (4.5-10.0)
--- NOTE | 2022-05-01 07:41 | PM.PNGS ---
Progress Note: A&P Assessment and Plan (1) Perforation of sigmoid colon due to diverticulitis: Code(s): K57.20 - Diverticulitis of large intestine with perforation and abscess without bleeding Status: Acute Assessment and Plan: Pain much improved. Suspect pain associated with testicles and genitalia is due to the diverticulitis. Reduction in the pain is definitely a good sign. Patient still has a lot of lower abdominal tenderness and I would not start liquids or a diet as yet. Continue NPO except ice chips. Could have meds with sip of water as well. Continue IV antibiotics. Up more today. (2) Chronic narcotic use: Code(s): F11.90 - Opioid use, unspecified, uncomplicated Status: Chronic Assessment and Plan: Pain management more difficult to control in this setting. Subjective Subjective Date/Time Seen: 05/01/22 07:41 Patient reports: feels better, pain is less ( Much less abdominal pain than yesterday), flatus, no bowel movement and afebrile Review of Systems Review of Systems: All systems reviewed & are unremarkable except as noted in HPI and below ( HPI and those items noted below) Constitutional: Constitutional: Denies chills and Denies fever(s) Cardiovascular: Cardiovascular: Denies chest pain, Denies diaphoresis, Denies dyspnea and Denies paroxysmal nocturnal dyspnea Respiratory: Respiratory: Denies chest congestion, Denies cough and Denies dyspnea Integumentary/Breasts: Skin/Breast: Denies lesions and Denies rash Exam Const: General: comfortable and no acute distress; No confusion Orientation/consciousness: patient oriented x3 and No confusion GI: Inspection: non-distended and scaphoid GI Palp: Yes Soft to palpation, Yes Tenderness to palpation present (GI) ( still very tender in the suprapubic and both lower quadrant areas. ), Yes Guarding due to palpation present (GI) ( Lower abdomen.) and No Rebound tenderness present Auscultation: normal bowel sounds Neuro: General: patient oriented x3, no focal motor deficits and No confusion Extrem: General: no calf tenderness and no edema Psych: Affect: normal affect Insight: Good insight present (Psych) Judgement: Good judgement present (Psych) Objective Data Vital Signs Vital Signs: Vital Signs - 24 hr 04/30/22 08:00 04/30/22 14:00 04/30/22 19:47 Temperature 36.4 C L Pulse Rate 106 H Respiratory Rate 16 Blood Pressure 115/66 Pulse Oximetry 90 92 Oxygen Delivery Room Air Room Air 04/30/22 19:56 05/01/22 04:00 Temperature 36.8 C 36.5 C Pulse Rate 78 80 Respiratory Rate 18 18 Blood Pressure 98/59 L 90/58 L Pulse Oximetry 96 96 Oxygen Delivery Intake/Output Intake/Output: Intake & Output 04/28/22 04/29/22 04/30/22 05/01/22 23:59 23:59 23:59 23:59 Intake Total 3450 2850 1600 Output Total 1900 600 Balance 3450 950 1000 Meds/Results Medications: Active Medications Generic Name Dose Route Start Last Admin Trade Name Freq PRN Reason Stop Dose Admin Enoxaparin Sodium 40 mg 05/01/22 09:00 Enoxaparin 40 Mg/0.4 Ml Syringe SUB-Q DAILY BRITTANY Levofloxacin/Dextrose 750 mg in 150 mls @ 100 mls/hr 04/30/22 12:00 04/30/22 15:27 Levaquin 750 Mg/D5w 150 Ml IVPB Infused NOON BRITTANY Infusion Metronidazole 500 mg in 100 mls @ 100 mls/hr 04/29/22 18:00 05/01/22 06:00 Flagyl 500 Mg/Iso Soln 100 Ml IVPB Infused Q6HR BRITTANY Infusion Ibuprofen 800 mg in 200 mls @ 400 mls/hr 04/30/22 12:00 05/01/22 05:26 Caldolor 800 Mg/200 Ml IVPB Infused Q6HR BRITTANY Infusion Potassium Chloride/Dextrose/Sod Cl 1,000 mls @ 100 mls/hr 04/30/22 12:50 05/01/22 01:04 Kcl 40 Meq/D5ns IV CONT 100 mls/hr .Q10H BRITTANY Administration Lorazepam 0.5 mg 04/29/22 21:01 04/30/22 08:52 Lorazepam Inj (*Crx) 2 Mg/Ml Vial IV PUSH 0.5 mg Q3H PRN Administration Anxiety Morphine Sulfate 2 mg 04/30/22 10:50 Morphine Sulfate (*Crx) 2 Mg/Ml Inj IV PUSH Q2H NM
[2022-05-01 08:15] LABS: Anion Gap 12 mmol/L (8-16); Blood Urea Nitrogen 15 mg/dL (9-20); Carbon Dioxide 24 mmol/L (22-30); Chloride 107 mmol/L (98-107); Estimated CRCL calculation 82 ml/min; Estimated Glomerular Filt Rate > 60; Glucose 100 mg/dL (65-110); Potassium 3.7 mmol/L (3.4-5.0); Sodium 143 mmol/L (137-145)
[2022-05-01] MEDS: ENOXAPARIN 40 MG/0.4 ML SYRINGE SUB-Q (08:42)
[2022-05-01] MEDS: MORPHINE SULFATE (*CRX) 4 MG/ML INJ IV PUSH (10:58)
--- NOTE | 2022-05-01 13:47 | PM.IMPN ---
Progress Note: A&P Assessment and Plan (1) Sepsis: Code(s): A41.9 - Sepsis, unspecified organism Status: Acute Assessment and Plan: Patient met sepsis criteria with leukocytosis, hypotension, lactic acidosis. Source of infection secondary to acute diverticulitis Continue with gentle IV fluids while NPO Leukocytosis has resolved Patient remains afebrile Lactic acidosis resolved with IV fluids Blood cultures are pending (2) Perforation of sigmoid colon due to diverticulitis: Code(s): K57.20 - Diverticulitis of large intestine with perforation and abscess without bleeding Status: Acute Assessment and Plan: CT of abdomen/pelvis showed acute sigmoid diverticulitis with microperforation without evidence of drainable abscess collection Continue Levaquin and Flagyl NPO diet except ice chips. Analgesics available as needed. Continue scheduled IV ibuprofen Appreciate general surgeon consultation Encouraged to increase ambulation (3) Suprapubic pain: Code(s): R10.2 - Pelvic and perineal pain Status: Acute Assessment and Plan: Patient complained of suprapubic discomfort and testicular pain with urination Scrotal exam benign. No clinical findings to suggest torsion or other urologic emergency and scrotal ultrasound was unremarkable Suspect this is referred pain secondary to acute diverticulitis CT a/p shows bilateral 1 mm kidney stones unlikely to be etiology and there is no evidence of obstructing stones UA with only trace blood, negative nitrates and leuk esterase Testicular pain has resolved today. (4) Chronic pain syndrome: Code(s): G89.4 - Chronic pain syndrome Status: Chronic Assessment and Plan: Patient has chronic shoulder pain. Continue analgesics (5) Anxiety: Code(s): F41.9 - Anxiety disorder, unspecified Status: Chronic Assessment and Plan: No acute issues. 0.5 milligrams IV Ativan p.r.n. as needed while NPO. Subjective Date/time seen: 05/01/22 13:47 Interval history: Date of service: 05/01/2022 Yevgeniy Painter is a 56-year-old male with a history of LESLIE, kidney stones, chronic pain syndrome, diverticulitis, and gout who is seen in follow-up for perforated sigmoid diverticulitis. He is starting to feel better today. His pain is significantly improved, currently rating at 4-5/10. Still having pain in suprapubic region but no longer endorsing testicular pain. No dysuria. He had a loose bowel movement today. Denies any blood in his stool. Denies nausea, vomiting, fever or chills. He remains NPO but is tolerating ice chips. Denies shortness of breath, cough, chest pain. Has been able to get up and ambulate today without any issues. Denies dizziness or lightheadedness Review of Systems Review of Systems: All systems reviewed & are unremarkable except as noted in HPI and below Exam Narrative: General: Well-nourished, well-appearing 56-year-old male, sitting up in bed, comfortable, NARD Neuro: awake, alert and oriented x4, speech clear, no focal neuro deficits noted HEENMT: normocephalic, atraumatic, EOMI, sclerae anicteric, moist oral mucosa Respiratory: clear to auscultation bilaterally, nonlabored breathing Cardio: regular rate, regular rhythm with S1-S2 Abdomen: nondistended, normoactive bowel sounds, soft, tender to palpation in lower abdomen and suprapubic region, no rigidity or guarding Extremities: no edema, erythema, or tenderness to palpation, DP pulses 2+ bilaterally Skin: no rashes or lesions, warm and dry Psych: appropriate mood and affect, judgment and insight intact Objective Data Vital Signs Vital Signs: Vital Signs - 24 hr 04/30/22 14:00 04/30/22 19:47 04/30/22 19:56 Temperature 97.5 F L 98.2 F Pulse Rate 106 H 78 Respiratory Rate 16 18 Blood Pressure 115/66 98/59 L Pulse Oximetry 90 92 96 Oxygen Delivery Room Air 05/01/22 04:00 05/01/22 08:
[2022-05-01 14:00] VITALS: BP 113/66; PULSE 92; RESP 16; TEMP 36.8; O2SAT 97
[2022-05-01] MEDS: KCL 40 MEQ/D5/0.9% SOD CHL 1,000 ML 80 ML IV CONT (20:40)
[2022-05-01 22:00] VITALS: BP 122/65; PULSE 98; RESP 16; TEMP 36.6; O2SAT 97
[2022-05-02] MEDS: MORPHINE SULFATE (*CRX) 2 MG/ML INJ IV PUSH (02:50)
[2022-05-02 03:40] LABS: Hematocrit 34.3 % (42.0-52.0); Hemoglobin 11.5 g/dL (14.0-18.0); Mean Corpuscular HGB Conc 33.5 g/dl (32-36); Mean Corpuscular Hemoglobin 31.3 pg (26-34); Mean Corpuscular Volume 93.2 fl (80-100); Mean Platelet Volume 10.3 fl (7.4-10.4); Platelet Count Result 192 k/mm3 (150-375); Red Blood Count 3.68 M/mm3 (4.6-6.20); White Blood Count 9.4 K/mm3 (4.5-10.0)
[2022-05-02 03:55] LABS: Anion Gap 7 mmol/L (8-16); Blood Urea Nitrogen 16 mg/dL (9-20); Calcium 8.1 mg/dL (8.4-10.2); Carbon Dioxide 23 mmol/L (22-30); Chloride 113 mmol/L (98-107); Estimated CRCL calculation 99 ml/min; Estimated Glomerular Filt Rate > 60; Glucose 113 mg/dL (65-110); Potassium 3.7 mmol/L (3.4-5.0); Sodium 143 mmol/L (137-145)
[2022-05-02] MEDS: IBUPROFEN IV 800 MG/200 ML 800 MG/200 ML BAG 400 MG IVPB ×4 (05:20→23:16)
[2022-05-02] MEDS: metroNIDAZOLE 500 MG/ISO 100ML 500 MG/100 ML BAG 100 MG IVPB ×3 (05:52→19:17)
[2022-05-02 06:00] VITALS: BP 100/69; PULSE 94; RESP 18; TEMP 36.4; O2SAT 96
[2022-05-02] MEDS: MORPHINE SULFATE (*CRX) 4 MG/ML INJ IV PUSH ×2 (10:19→18:12)
--- NOTE | 2022-05-02 11:15 | PM.IMPN ---
Progress Note: A&P Assessment and Plan (1) Sepsis: Code(s): A41.9 - Sepsis, unspecified organism Status: Acute Assessment and Plan: Patient met sepsis criteria with leukocytosis, hypotension, lactic acidosis. Source of infection secondary to acute diverticulitis IV fluids can probably be turned off if able to maintain with clear liquids Leukocytosis has resolved Patient remains afebrile Lactic acidosis resolved with IV fluids Blood cultures shows NGTD (2) Perforation of sigmoid colon due to diverticulitis: Code(s): K57.20 - Diverticulitis of large intestine with perforation and abscess without bleeding Status: Acute Assessment and Plan: CT of abdomen/pelvis showed acute sigmoid diverticulitis with microperforation without evidence of drainable abscess collection Continue Levaquin and Flagyl Increased to clear liquids Analgesics available as needed. Continue scheduled IV ibuprofen, add norco PO Appreciate general surgeon consultation Encouraged to increase ambulation (3) Suprapubic pain: Code(s): R10.2 - Pelvic and perineal pain Status: Acute Assessment and Plan: Patient complained of suprapubic discomfort and testicular pain with urination Scrotal exam benign. No clinical findings to suggest torsion or other urologic emergency and scrotal ultrasound was unremarkable Suspect this is referred pain secondary to acute diverticulitis CT a/p shows bilateral 1 mm kidney stones unlikely to be etiology and there is no evidence of obstructing stones UA with only trace blood, negative nitrates and leuk esterase Testicular pain remains resolved (4) Chronic pain syndrome: Code(s): G89.4 - Chronic pain syndrome Status: Chronic Assessment and Plan: Patient has chronic shoulder pain. Continue analgesics (5) Anxiety: Code(s): F41.9 - Anxiety disorder, unspecified Status: Chronic Assessment and Plan: No acute issues. 0.5 milligrams IV Ativan p.r.n. as needed while NPO. Time Spent With Patient Time with patient: Greater than 35 minutes Subjective Date/time seen: 05/02/221114 Interval history: 05/02/221114 Patient stated that he was having like pain. He denies any as chest pain, shortness a breath, nausea, vomiting. He did state that he was able to get to the bathroom and did have a bowel movement which was solid this morning. he stated that he has no more pelvic pain however he did state that he does have some pain with urination. He also stated that he was having lower abdominal pain when he coughs, clears his throat, belches, Flatus Which is relieved with splinting. He also stated that he is having hard time getting his stream going and has to sit up a little bit and it will come out. He has been increased to clear liquids. 05/01/22? 13:47 Yevgeniy Painter is a 56-year-old male with a history of LESLIE, kidney stones, chronic pain syndrome, diverticulitis, and gout who is seen in follow-up for perforated sigmoid diverticulitis.? He is starting to feel better today.? His pain is significantly improved, currently rating at 4-5/10.? Still having pain in suprapubic region but no longer endorsing testicular pain.? No dysuria.? He had a loose bowel movement today.? Denies any blood in his stool.? Denies nausea, vomiting, fever or chills.? He remains NPO but is tolerating ice chips.? Denies shortness of breath, cough, chest pain.? Has been able to get up and ambulate today without any issues.? Denies dizziness or lightheadedness Review of Systems Review of Systems: All systems reviewed & are unremarkable except as noted in HPI and below Exam Const: General: cooperative, no acute distress, well developed, alert, awake, uncomfortable and well nourished Nutritional Appearance: well nourished Orientation/consciousness: patient oriented x3 Limitations: no limitations HENMT: Head: normal to inspection Ea
--- NOTE | 2022-05-02 12:09 | PM.PNGS ---
Progress Note: A&P Assessment and Plan (1) Perforation of sigmoid colon due to diverticulitis: Code(s): K57.20 - Diverticulitis of large intestine with perforation and abscess without bleeding Status: Acute Assessment and Plan: Pain continuing to improve. Will start on clear liquid diet today. Repeat labs in the morning. (2) Chronic narcotic use: Code(s): F11.90 - Opioid use, unspecified, uncomplicated Status: Chronic Assessment and Plan: Pain management more difficult to control in this setting. Subjective Subjective Date/Time Seen: 05/02/22 12:09 Interval history: Pain improving. No nausea or vomiting. Passing flatus. Also moving bowels. No fevers. Exam GI: Inspection: non-distended GI Palp: Yes Soft to palpation, Yes Tenderness to palpation present (GI) (LLQ), No Guarding due to palpation present (GI) and No Rebound tenderness present Percussion: Yes normal to percussion Auscultation: normal bowel sounds Objective Data Vital Signs Vital Signs: Vital Signs - 24 hr 05/01/22 14:00 05/01/22 22:00 05/01/22 20:00 Temperature 36.8 C 36.6 C Pulse Rate 92 98 Respiratory Rate 16 16 Blood Pressure 113/66 122/65 Pulse Oximetry 97 97 Oxygen Delivery Room Air 05/02/22 06:00 Temperature 36.4 C Pulse Rate 94 Respiratory Rate 18 Blood Pressure 100/69 Pulse Oximetry 96 Oxygen Delivery Intake/Output Intake/Output: Intake & Output 04/29/22 04/30/22 05/01/22 05/02/22 23:59 23:59 23:59 23:59 Intake Total 3450 2850 3550 400 Output Total 1900 600 Balance 3450 950 2950 400 Meds/Results Medications: Active Medications Generic Name Dose Route Start Last Admin Trade Name Freq PRN Reason Stop Dose Admin Enoxaparin Sodium 40 mg 05/01/22 09:00 05/02/22 09:30 Enoxaparin 40 Mg/0.4 Ml Syringe SUB-Q Not Given DAILY BRITTANY Ibuprofen 800 mg in 200 mls @ 400 mls/hr 04/30/22 12:00 05/02/22 05:50 Caldolor 800 Mg/200 Ml IVPB Infused Q6HR BRITTANY Infusion Potassium Chloride/Dextrose/Sod Cl 1,000 mls @ 80 mls/hr 04/30/22 12:50 05/01/22 20:42 Kcl 40 Meq/D5ns IV CONT Not Given .[id number] BRITTANY Levofloxacin/Dextrose 750 mg in 150 mls @ 100 mls/hr 05/02/22 13:00 Levaquin 750 Mg/D5w 150 Ml IVPB NOON BRITTANY Metronidazole 500 mg in 100 mls @ 100 mls/hr 05/02/22 13:00 Flagyl 500 Mg/Iso Soln 100 Ml IVPB Q6H BRITTANY Lorazepam 0.5 mg 04/29/22 21:01 04/30/22 08:52 Lorazepam Inj (*Crx) 2 Mg/Ml Vial IV PUSH 0.5 mg Q3H PRN Administration Anxiety Morphine Sulfate 2 mg 04/30/22 10:50 05/02/22 02:50 Morphine Sulfate (*Crx) 2 Mg/Ml Inj IV PUSH 2 mg Q2H PRN Administration Pain Rated 4-6 Morphine Sulfate 4 mg 04/30/22 10:50 05/02/22 10:19 Morphine Sulfate (*Crx) 4 Mg/Ml Inj IV PUSH 4 mg Q2H PRN Administration Pain Rated 7-10 Naloxone HCl 0.1 mg 04/30/22 10:50 Naloxone Hcl 0.4 Mg/Ml Vial IV PUSH Q2M PRN Opiate Reversal Ondansetron HCl 4 mg 04/29/22 12:55 Ondansetron Inj 4 Mg/2 Ml Vial IV PUSH Q4H PRN Nausea Radiology Results: ITS Impressions Abdomen/Pelvis CT 04/29/22 11:18 IMPRESSION: 1. Acute sigmoid diverticulitis with microperforation. No drainable abscess. Abdomen X-Ray 04/30/22 15:30 IMPRESSION: 1. No definite urolithiasis identified. Scrotum Ultrasound 04/30/22 17:25 IMPRESSION: 1. No sonographic correlate for the patient's symptoms. Labs Labs: Laboratory Results - last 24 hr 05/02/22 05/02/22 03:33 03:33 WBC 9.4 RBC 3.68 L Hgb 11.5 L Hct 34.3 L MCV 93.2 MCH 31.3 MCHC 33.5 RDW 15.0 H Plt Count 192 MPV 10.3 Sodium 143 Potassium 3.7 Chloride 113 H Carbon Dioxide 23 Anion Gap 7 L BUN 16 Creatinine 0.90 Estim Creat Clear Calc 99 Estimated GFR > 60 Glucose 113 H Calcium 8.1 L
[2022-05-02 14:00] VITALS: BP 126/84; PULSE 86; RESP 20; TEMP 36.3; O2SAT 96
[2022-05-02] MEDS: KCL 40 MEQ/D5/0.9% SOD CHL 1,000 ML 80 ML IV CONT (16:57)
[2022-05-02 22:00] VITALS: BP 108/62; PULSE 89; RESP 18; TEMP 36.2; O2SAT 97
[2022-05-03] MEDS: metroNIDAZOLE 500 MG/ISO 100ML 500 MG/100 ML BAG 100 MG IVPB ×4 (00:04→18:02)
[2022-05-03] MEDS: MORPHINE SULFATE (*CRX) 4 MG/ML INJ IV PUSH (05:46)
[2022-05-03] MEDS: IBUPROFEN IV 800 MG/200 ML 800 MG/200 ML BAG 400 MG IVPB (05:49)
[2022-05-03 05:52] LABS: Hematocrit 35.7 % (42.0-52.0); Hemoglobin 11.9 g/dL (14.0-18.0); Mean Corpuscular HGB Conc 33.3 g/dl (32-36); Mean Corpuscular Hemoglobin 31.2 pg (26-34); Mean Corpuscular Volume 93.7 fl (80-100); Mean Platelet Volume 10.6 fl (7.4-10.4); Platelet Count Result 237 k/mm3 (150-375); Red Blood Count 3.81 M/mm3 (4.6-6.20); Red Cell Distribution Width 15.5 % (11.5-14.5); White Blood Count 10.6 K/mm3 (4.5-10.0)
[2022-05-03 06:00] VITALS: BP 131/65; PULSE 66; RESP 16; TEMP 36.3; O2SAT 96
[2022-05-03 06:09] LABS: Anion Gap 9 mmol/L (8-16); Blood Urea Nitrogen 13 mg/dL (9-20); Calcium 8.3 mg/dL (8.4-10.2); Carbon Dioxide 24 mmol/L (22-30); Chloride 111 mmol/L (98-107); Estimated CRCL calculation 98 ml/min; Estimated Glomerular Filt Rate > 60; Glucose 105 mg/dL (65-110); Potassium 3.5 mmol/L (3.4-5.0); Sodium 144 mmol/L (137-145)
[2022-05-03] MEDS: KCL 40 MEQ/D5/0.9% SOD CHL 1,000 ML 80 ML IV CONT (08:54)
[2022-05-03] MEDS: ENOXAPARIN 40 MG/0.4 ML SYRINGE SUB-Q (08:55)
--- NOTE | 2022-05-03 09:20 | PM.PNGS ---
Progress Note: A&P Assessment and Plan (1) Perforation of sigmoid colon due to diverticulitis: Code(s): K57.20 - Diverticulitis of large intestine with perforation and abscess without bleeding Status: Acute Assessment and Plan: Advance to full liquid diet transition to oral pain meds (2) Chronic narcotic use: Code(s): F11.90 - Opioid use, unspecified, uncomplicated Status: Chronic Assessment and Plan: Pain management more difficult to control in this setting. Subjective Subjective Date/Time Seen: 05/03/22 09:20 Interval history: pain continuing to improve. Bowels moving. No fevers. Tolerating clear liquids. Exam GI: Inspection: non-distended GI Palp: Yes Soft to palpation, Yes Tenderness to palpation present (GI) (LLQ), No Guarding due to palpation present (GI) and No Rebound tenderness present Percussion: Yes normal to percussion Auscultation: normal bowel sounds Objective Data Vital Signs Vital Signs: Vital Signs - 24 hr 05/02/22 14:00 05/02/22 20:00 05/02/22 22:00 Temperature 36.3 C L 36.2 C L Pulse Rate 86 89 Respiratory Rate 20 18 Blood Pressure 126/84 108/62 Pulse Oximetry 96 97 Oxygen Delivery Room Air 05/03/22 06:00 Temperature 36.3 C L Pulse Rate 66 Respiratory Rate 16 Blood Pressure 131/65 Pulse Oximetry 96 Oxygen Delivery Intake/Output Intake/Output: Intake & Output 04/30/22 05/01/22 05/02/22 05/03/22 23:59 23:59 23:59 23:59 Intake Total 2850 3550 2830 1700 Output Total 1900 600 Balance 950 2950 2830 1700 Meds/Results Medications: Active Medications Generic Name Dose Route Start Last Admin Trade Name Freq PRN Reason Stop Dose Admin Hydrocodone Bitart/Acetaminophen 1 tab 05/03/22 09:19 Hydrocodone/Acetaminophen (*Crx) 5-325 Mg Tablet PO Q4H PRN Pain Rated 4-6 Hydrocodone Bitart/Acetaminophen 1 tab 05/03/22 09:19 Hydrocodone/Acetaminophen (*Crx) 10-325 Mg Tablet PO Q4H PRN Pain Rated 7-10 Enoxaparin Sodium 40 mg 05/01/22 09:00 05/03/22 08:55 Enoxaparin 40 Mg/0.4 Ml Syringe SUB-Q 40 mg DAILY BRITTANY Administration Levofloxacin/Dextrose 750 mg in 150 mls @ 100 mls/hr 05/02/22 13:00 05/02/22 15:24 Levaquin 750 Mg/D5w 150 Ml IVPB Infused NOON BRITTANY Infusion Metronidazole 500 mg in 100 mls @ 100 mls/hr 05/02/22 13:00 05/03/22 07:26 Flagyl 500 Mg/Iso Soln 100 Ml IVPB Infused Q6H BRITTANY Infusion Ibuprofen 600 mg 05/03/22 09:19 Ibuprofen 600 Mg Tablet PO Q6H PRN Pain Rated 1-3 Lorazepam 0.5 mg 04/29/22 21:01 04/30/22 08:52 Lorazepam Inj (*Crx) 2 Mg/Ml Vial IV PUSH 0.5 mg Q3H PRN Administration Anxiety Naloxone HCl 0.1 mg 04/30/22 10:50 Naloxone Hcl 0.4 Mg/Ml Vial IV PUSH Q2M PRN Opiate Reversal Ondansetron HCl 4 mg 04/29/22 12:55 Ondansetron Inj 4 Mg/2 Ml Vial IV PUSH Q4H PRN Nausea Radiology Results: ITS Impressions Abdomen/Pelvis CT 04/29/22 11:18 IMPRESSION: 1. Acute sigmoid diverticulitis with microperforation. No drainable abscess. Abdomen X-Ray 04/30/22 15:30 IMPRESSION: 1. No definite urolithiasis identified. Scrotum Ultrasound 04/30/22 17:25 IMPRESSION: 1. No sonographic correlate for the patient's symptoms. Labs Labs: Laboratory Results - last 24 hr 05/03/22 05/03/22 05:29 05:29 WBC 10.6 H RBC 3.81 L Hgb 11.9 L Hct 35.7 L MCV 93.7 MCH 31.2 MCHC 33.3 RDW 15.5 H Plt Count 237 MPV 10.6 H Sodium 144 Potassium 3.5 Chloride 111 H Carbon Dioxide 24 Anion Gap 9 BUN 13 Creatinine 0.90 Estim Creat Clear Calc 98 Estimated GFR > 60 Glucose 105 Calcium 8.3 L
--- NOTE | 2022-05-03 10:00 | PM.IMPN ---
Progress Note: A&P Assessment and Plan (1) Sepsis: Code(s): A41.9 - Sepsis, unspecified organism Status: Acute Assessment and Plan: Patient met sepsis criteria with leukocytosis, hypotension, lactic acidosis. Source of infection secondary to acute diverticulitis IV fluids DC'd Leukocytosis has resolved Patient remains afebrile Lactic acidosis resolved with IV fluids Blood cultures shows NGTD (2) Perforation of sigmoid colon due to diverticulitis: Code(s): K57.20 - Diverticulitis of large intestine with perforation and abscess without bleeding Status: Acute Assessment and Plan: CT of abdomen/pelvis showed acute sigmoid diverticulitis with microperforation without evidence of drainable abscess collection Continue Levaquin and Flagyl Increased to Full liquids Analgesics available as needed. Continue scheduled IV ibuprofen, add norco PO Appreciate general surgeon consultation Encouraged to increase ambulation (3) Suprapubic pain: Code(s): R10.2 - Pelvic and perineal pain Status: Acute Assessment and Plan: Patient complained of suprapubic discomfort and testicular pain with urination Scrotal exam benign. No clinical findings to suggest torsion or other urologic emergency and scrotal ultrasound was unremarkable Suspect this is referred pain secondary to acute diverticulitis CT a/p shows bilateral 1 mm kidney stones unlikely to be etiology and there is no evidence of obstructing stones UA with only trace blood, negative nitrates and leuk esterase Testicular pain remains resolved (4) Chronic pain syndrome: Code(s): G89.4 - Chronic pain syndrome Status: Chronic Assessment and Plan: Patient has chronic shoulder pain. Continue analgesics (5) Anxiety: Code(s): F41.9 - Anxiety disorder, unspecified Status: Chronic Assessment and Plan: No acute issues. 0.5 milligrams IV Ativan p.r.n. as needed while NPO. Time Spent With Patient Time with patient: Greater than 35 minutes Subjective Date/time seen: 05/03/22 1000 Interval history: 05/03/22 1000 Patient was lying in bed. Patient stated he is doing okay. He stated that he was able to have a BM with out difficulty. He is also stating that the pain is better as well. He denies any chest pain, shortness of breath, nausea, vomiting, diarrhea, constipation. 05/02/22 1115 Patient stated that he was having like pain. He denies any as chest pain, shortness a breath, nausea, vomiting. He did state that he was able to get to the bathroom and did have a bowel movement which was solid this morning. he stated that he has no more pelvic pain however he did state that he does have some pain with urination. He also stated that he was having lower abdominal pain when he coughs, clears his throat, belches, Flatus Which is relieved with splinting. He also stated that he is having hard time getting his stream going and has to sit up a little bit and it will come out. He has been increased to clear liquids. 05/01/22? 13:47 Yevgeniy Painter is a 56-year-old male with a history of LESLIE, kidney stones, chronic pain syndrome, diverticulitis, and gout who is seen in follow-up for perforated sigmoid diverticulitis.? He is starting to feel better today.? His pain is significantly improved, currently rating at 4-5/10.? Still having pain in suprapubic region but no longer endorsing testicular pain.? No dysuria.? He had a loose bowel movement today.? Denies any blood in his stool.? Denies nausea, vomiting, fever or chills.? He remains NPO but is tolerating ice chips.? Denies shortness of breath, cough, chest pain.? Has been able to get up and ambulate today without any issues.? Denies dizziness or lightheadedness Review of Systems Review of Systems: All systems reviewed & are unremarkable except as noted in HPI and below Exam Const: General: cooperative, healthy appe
[2022-05-03] MEDS: HYDROcodone/acetaminophen (*CRX) 10-325 MG TABLET 1 TAB PO ×2 (13:22→22:25)
[2022-05-03 15:00] VITALS: BP 117/73; PULSE 96; RESP 16; TEMP 37; O2SAT 96
[2022-05-03 21:13] VITALS: BP 108/67; PULSE 82; RESP 20; TEMP 37.1; O2SAT 98
[2022-05-04] MEDS: metroNIDAZOLE 500 MG/ISO 100ML 500 MG/100 ML BAG 100 MG IVPB ×3 (00:53→19:52)
[2022-05-04] MEDS: HYDROcodone/acetaminophen (*CRX) 10-325 MG TABLET 1 TAB PO ×2 (03:39→08:44)
[2022-05-04 06:00] VITALS: BP 126/83; PULSE 75; RESP 18; TEMP 37.6; O2SAT 94
[2022-05-04 06:06] LABS: Anion Gap 4 mmol/L (8-16); Blood Urea Nitrogen 12 mg/dL (9-20); Calcium 7.8 mg/dL (8.4-10.2); Carbon Dioxide 25 mmol/L (22-30); Chloride 113 mmol/L (98-107); Estimated CRCL calculation 110 ml/min; Estimated Glomerular Filt Rate > 60; Glucose 95 mg/dL (65-110); Potassium 3.8 mmol/L (3.4-5.0); Sodium 142 mmol/L (137-145)
[2022-05-04 06:15] LABS: Hematocrit 31.2 % (42.0-52.0); Hemoglobin 10.5 g/dL (14.0-18.0); Mean Corpuscular HGB Conc 33.7 g/dl (32-36); Mean Corpuscular Hemoglobin 30.3 pg (26-34); Mean Corpuscular Volume 89.9 fl (80-100); Mean Platelet Volume 10.5 fl (7.4-10.4); Platelet Count Result 240 k/mm3 (150-375); Red Blood Count 3.47 M/mm3 (4.6-6.20); Red Cell Distribution Width 15.5 % (11.5-14.5); White Blood Count 7.8 K/mm3 (4.5-10.0)
[2022-05-04] MEDS: metroNIDAZOLE 500 MG/ISO 100ML 500 MG/100 ML BAG 125 MG IVPB (06:20)
[2022-05-04] MEDS: ENOXAPARIN 40 MG/0.4 ML SYRINGE SUB-Q (08:45)
--- NOTE | 2022-05-04 09:00 | P.PNIM_ITS ---
Progress Note: A&P Assessment and Plan (1) Sepsis: Code(s): A41.9 - Sepsis, unspecified organism Status: Acute Assessment and Plan: * Patient met sepsis criteria with leukocytosis, hypotension, lactic acidosis. Source of infection secondary to acute diverticulitis * IV fluids DC'd * Leukocytosis has resolved, WBC currently 7.8 * Low grade fever of 99.8 * Lactic acidosis resolved with IV fluids * Blood cultures shows NGTD * Send off a urine (2) Perforation of sigmoid colon due to diverticulitis: Code(s): K57.20 - Diverticulitis of large intestine with perforation and abscess without bleeding Status: Acute Assessment and Plan: * CT of abdomen/pelvis showed acute sigmoid diverticulitis with microperforation without evidence of drainable abscess collection * Continue Levaquin and Flagyl * Increased to Full liquids * Pain medications increased to home dose with morphine for break through pain * Appreciate general surgeon consultation * Encouraged to increase ambulation (3) Suprapubic pain: Code(s): R10.2 - Pelvic and perineal pain Status: Acute Assessment and Plan: * Patient complained of suprapubic discomfort and testicular pain with urination * Scrotal exam benign. No clinical findings to suggest torsion or other urologic emergency and scrotal ultrasound was unremarkable * Suspect this is referred pain secondary to acute diverticulitis * CT a/p shows bilateral 1 mm kidney stones unlikely to be etiology and there is no evidence of obstructing stones * UA with only trace blood, negative nitrates and leuk esterase * Testicular pain remains resolved (4) Chronic pain syndrome: Code(s): G89.4 - Chronic pain syndrome Status: Chronic Assessment and Plan: * Patient has chronic shoulder pain. * Continue analgesics (5) Anxiety: Code(s): F41.9 - Anxiety disorder, unspecified Status: Chronic Assessment and Plan: * No acute issues. * 0.5 milligrams IV Ativan p.r.n. as needed while NPO. (6) Abdominal pain: Code(s): R10.9 - Unspecified abdominal pain Status: Acute Assessment and Plan: * Complaining of LLQ pain, and right sided flank pain * UA ordered * KUB ordered * Pain medications on board * Could be related to a possible kidney stone, or UTI * Urine output adequate * Continue to trend pain Time Spent With Patient Time with patient: Greater than 35 minutes Subjective Date/time seen: 05/04/22 0900 Interval history: 05/04/22 0900 Patient is complaining of some significant pain. He is stating that his pain in the left lower quadrant. He is also complaining of right flank pain. He denies any chest pain, shortness of breath, nausea, vomiting, diarrhea. He did state that he has been able to have a small BM, but did not feel like it was significant enough. Increased pain medications as he take 7.5/325s at home. KUB ordered. He is also complaining of burning with urination. 05/03/22 1000 Patient was lying in bed. Patient stated he is doing okay. He stated that he was able to have a BM with out difficulty. He is also stating that the pain is better as well. He denies any chest pain, shortness of breath, nausea, vomiting, diarrhea, constipation. 05/02/22 1115 Patient stated that he was having like pain. He denies any as chest pain, shortness a breath, nausea, vomiting. He did state that he was able to get to the bathroom and did have
--- NOTE | 2022-05-04 09:00 | PM.IMPN ---
Progress Note: A&P Assessment and Plan (1) Sepsis: Code(s): A41.9 - Sepsis, unspecified organism Status: Acute Assessment and Plan: Patient met sepsis criteria with leukocytosis, hypotension, lactic acidosis. Source of infection secondary to acute diverticulitis IV fluids DC'd Leukocytosis has resolved, WBC currently 7.8 Low grade fever of 99.8 Lactic acidosis resolved with IV fluids Blood cultures shows NGTD Send off a urine (2) Perforation of sigmoid colon due to diverticulitis: Code(s): K57.20 - Diverticulitis of large intestine with perforation and abscess without bleeding Status: Acute Assessment and Plan: CT of abdomen/pelvis showed acute sigmoid diverticulitis with microperforation without evidence of drainable abscess collection Continue Levaquin and Flagyl Increased to Full liquids Pain medications increased to home dose with morphine for break through pain Appreciate general surgeon consultation Encouraged to increase ambulation (3) Suprapubic pain: Code(s): R10.2 - Pelvic and perineal pain Status: Acute Assessment and Plan: Patient complained of suprapubic discomfort and testicular pain with urination Scrotal exam benign. No clinical findings to suggest torsion or other urologic emergency and scrotal ultrasound was unremarkable Suspect this is referred pain secondary to acute diverticulitis CT a/p shows bilateral 1 mm kidney stones unlikely to be etiology and there is no evidence of obstructing stones UA with only trace blood, negative nitrates and leuk esterase Testicular pain remains resolved (4) Chronic pain syndrome: Code(s): G89.4 - Chronic pain syndrome Status: Chronic Assessment and Plan: Patient has chronic shoulder pain. Continue analgesics (5) Anxiety: Code(s): F41.9 - Anxiety disorder, unspecified Status: Chronic Assessment and Plan: No acute issues. 0.5 milligrams IV Ativan p.r.n. as needed while NPO. (6) Abdominal pain: Code(s): R10.9 - Unspecified abdominal pain Status: Acute Assessment and Plan: Complaining of LLQ pain, and right sided flank pain UA ordered KUB ordered Pain medications on board Could be related to a possible kidney stone, or UTI Urine output adequate Continue to trend pain Time Spent With Patient Time with patient: Greater than 35 minutes Subjective Date/time seen: 05/04/22899 Interval history: 05/04/22899 Patient is complaining of some significant pain. He is stating that his pain in the left lower quadrant. He is also complaining of right flank pain. He denies any chest pain, shortness of breath, nausea, vomiting, diarrhea. He did state that he has been able to have a small BM, but did not feel like it was significant enough. Increased pain medications as he take 7.5/325s at home. KUB ordered. He is also complaining of burning with urination. 05/03/22 1000 Patient was lying in bed. Patient stated he is doing okay. He stated that he was able to have a BM with out difficulty. He is also stating that the pain is better as well. He denies any chest pain, shortness of breath, nausea, vomiting, diarrhea, constipation. 05/02/22 1115 Patient stated that he was having like pain. He denies any as chest pain, shortness a breath, nausea, vomiting. He did state that he was able to get to the bathroom and did have a bowel movement which was solid this morning. he stated that he has no more pelvic pain however he did state that he does have some pain with urination. He also stated that he was having lower abdominal pain when he coughs, clears his throat, belches, Flatus Which is relieved with splinting. He also stated that he is having hard time getting his stream going and has to sit up a little bit and it will come out. He has been increased to clear liquids. 05/01/22? 13:47
[2022-05-04] MEDS: MORPHINE SULFATE (*CRX) 2 MG/ML INJ 1 MG IV PUSH ×2 (10:23→23:34)
[2022-05-04 11:30] LABS: Appearance Urine Clear (Clear); Bilirubin Urine Negative (Negative); Blood Urine Negative (Negative); Color Urine Yellow (Yellow); Glucose Urine UA Negative (Negative); Ketones Urine Negative (Negative); Leukocyte Esterase Ur Trace LEU/UL (Negative); Nitrate Urine Negative (Negative); Protein Urine Negative (Negative); Specific Grav Ur >= 1.030 (1.001-1.035); Urobilinogen Urine 0.2 mg/dL (<2.0); pH Urine 5.5 (5.0-9.0)
[2022-05-04 11:44] LABS: Mucus Urine Rare /lpf; Squamous Epithelial Cell Urine Rare /hpf (Few); WBC Urine 0-3 /hpf
[2022-05-04 11:50] LABS: Add Urine Microscopic? YES
--- NOTE | 2022-05-04 12:45 | PC.NURSE ---
call to vascular bell cleaner to have IV placed with ultrasound
--- NOTE | 2022-05-04 13:17 | PM.PNGS ---
Progress Note: A&P Assessment and Plan (1) Perforation of sigmoid colon due to diverticulitis: Code(s): K57.20 - Diverticulitis of large intestine with perforation and abscess without bleeding Status: Acute Assessment and Plan: Increase in lower abdominal pain and right flank pain overnight. Hospitalist ordered KUB and UA to rule out urinary source for flank pain, KUB negative. Will get CT abdomen/pelvis to re-evaluate the diverticulitis. Continue IV antibiotics. May need to back off diet, but will await CT results. (2) Chronic narcotic use: Code(s): F11.90 - Opioid use, unspecified, uncomplicated Status: Chronic Plan I have discussed the patient's case and plan of care with Dr. Fernnadez. Subjective Subjective Date/Time Seen: 05/04/22 13:17 Patient reports: still having pain, flatus, bowel movement and afebrile (temp 99.6F this morning) Interval history: Chart reviewed. Patient seen and examined. He reports initially his abdominal pain was improving, up until last night. He began having worsening lower abdominal pain and right flank pain. This felt similar to the pain he felt when being admitted. Overnight, he also noticed some dysuria, which has resolved this morning. Hospitalist ordered a KUB and urinalysis today. Patient reports flatus and did have a small firm BM this morning. He denies nausea or poor appetite, but is not eating much due to fear of it aggravating his pain. He was advanced to a low fiber diet this morning. Review of Systems Review of Systems: All systems reviewed & are unremarkable except as noted in HPI and below Exam Const: General: comfortable and no acute distress Orientation/consciousness: patient oriented x3 GI: Inspection: non-distended GI Palp: Yes Soft to palpation, Yes Tenderness to palpation present (GI) (Across entire lower abdomen), Yes Guarding due to palpation present (GI) (LLQ) and No Rebound tenderness present Auscultation: normal bowel sounds Objective Data Vital Signs Vital Signs: Vital Signs - 24 hr 05/03/22 15:00 05/03/22 21:13 05/03/22 20:00 Temperature 98.6 F 98.8 F Pulse Rate 96 82 Respiratory Rate 16 20 Blood Pressure 117/73 108/67 Pulse Oximetry 96 98 Oxygen Delivery Room Air 05/04/22 06:00 Temperature 99.6 F Pulse Rate 75 Respiratory Rate 18 Blood Pressure 126/83 Pulse Oximetry 94 Oxygen Delivery Intake/Output Intake/Output: Intake & Output 05/01/22 05/02/22 05/03/22 05/04/22 23:59 23:59 23:59 23:59 Intake Total 3550 2830 4650 560 Output Total 600 400 Balance 2950 2830 4650 160 Meds/Results Medications: Active Medications Generic Name Dose Route Start Last Admin Trade Name Freq PRN Reason Stop Dose Admin Hydrocodone Bitart/Acetaminophen 1 tab 05/04/22 10:13 Hydrocodone/Acetaminophen (*Crx) 7.5-325 Mg Tablet PO Q4H PRN Pain Rated 4-10 Enoxaparin Sodium 40 mg 05/01/22 09:00 05/04/22 08:45 Enoxaparin 40 Mg/0.4 Ml Syringe SUB-Q 40 mg DAILY BRITTANY Administration Levofloxacin/Dextrose 750 mg in 150 mls @ 100 mls/hr 05/02/22 13:00 05/04/22 12:01 Levaquin 750 Mg/D5w 150 Ml IVPB 100 mls/hr NOON BRITTANY Administration Metronidazole 500 mg in 100 mls @ 100 mls/hr 05/02/22 13:00 05/04/22 07:08 Flagyl 500 Mg/Iso Soln 100 Ml IVPB Infused Q6H BRITTANY Infusion Ibuprofen 600 mg 05/03/22 09:19 Ibuprofen 600 Mg Tablet PO Q6H PRN Pain Rated 1-3 Lorazepam 0.5 mg 04/29/22 21:01 04/30/22 08:52 Lorazepam Inj (*Crx) 2 Mg/Ml Vial IV PUSH 0.5 mg Q3H PRN Administration Anxiety Lorazepam 0.5 mg 05/03/22 20:12 Lorazepam (*Crx) 0.5 Mg Tablet PO Q8H PRN Anxiety Morphine Sulfate 1 mg 05/04/22 10:13 Morphine Sulfate (*Crx) 2 Mg/Ml Inj IV PUSH Q4H PRN break through pain Naloxone HCl 0.1 mg 04/30/22 10:50 Naloxone Hcl 0.4 Mg/Ml Vial IV PUSH Q2M PRN Opiate Reversal Ondansetron HCl 4 mg
[2022-05-04 14:05] VITALS: BP 136/84; PULSE 87; RESP 18; TEMP 36.3; O2SAT 98
[2022-05-04] MEDS: HYDROcodone/acetaminophen (*CRX) 7.5-325 MG TABLET 1 TAB PO (19:52)
[2022-05-04 21:54] VITALS: BP 125/66; PULSE 77; RESP 20; TEMP 36.4; O2SAT 96
[2022-05-05] MEDS: metroNIDAZOLE 500 MG/ISO 100ML 500 MG/100 ML BAG 100 MG IVPB ×4 (00:16→18:33)
[2022-05-05] MEDS: HYDROcodone/acetaminophen (*CRX) 7.5-325 MG TABLET 1 TAB PO ×2 (05:34→23:11)
[2022-05-05 05:49] VITALS: BP 125/67; PULSE 59; RESP 20; TEMP 36.6; O2SAT 95
[2022-05-05 06:35] LABS: Basophils Absolute Auto 0.1 K/mm3 (0.0-0.1); Basophils Percent Auto 0.7 % (0.2-1.2); Eosinophils Absolute Auto 0.3 K/mm3 (0-0.3); Eosinophils Percent Auto 4.1 % (0-4.4); Hematocrit 31.9 % (42.0-52.0); Hemoglobin 10.8 g/dL (14.0-18.0); Immature Granulocyte Absolute 0.17 K/mm3 (0.00-0.031); Immature Granulocyte Percent A 2.3 % (0-0.5); Lymphocytes Absolute Auto 1.35 K/mm3 (0.9-3.2); Mean Corpuscular HGB Conc 33.9 g/dl (32-36); Mean Corpuscular Hemoglobin 30.7 pg (26-34); Mean Corpuscular Volume 90.6 fl (80-100); Mean Platelet Volume 10.1 fl (7.4-10.4); Monocytes Absolute Auto 0.9 K/mm3 (0.1-0.6); Monocytes Percent Auto 12.3 % (2.6-8.5); Neutrophils Absolute Auto 4.7 K/mm3 (1.3-6.7); Neutrophils Percent Auto 62.6 % (45.5-73.1); Platelet Count Result 256 k/mm3 (150-375); Red Blood Count 3.52 M/mm3 (4.6-6.20); Red Cell Distribution Width 15.3 % (11.5-14.5); White Blood Count 7.5 K/mm3 (4.5-10.0)
[2022-05-05 06:46] LABS: Alanine Aminotransferase 20 U/L (6-50); Alkaline Phosphatase 69 U/L (38-126); Anion Gap 7 mmol/L (8-16); Aspartate Amino Transferase 27 U/L (17-59); Bilirubin,Total 0.7 mg/dL (0.2-1.3); Blood Urea Nitrogen 11 mg/dL (9-20); Carbon Dioxide 26 mmol/L (22-30); Chloride 107 mmol/L (98-107); Estimated CRCL calculation 124 ml/min; Estimated Glomerular Filt Rate > 60; Glucose 98 mg/dL (65-110); Magnesium 1.7 mg/dL (1.6-2.3); Potassium 3.4 mmol/L (3.4-5.0); Sodium 140 mmol/L (137-145)
[2022-05-05 08:00] VITALS: PULSE 59; RESP 20; O2SAT 95
--- NOTE | 2022-05-05 09:14 | PM.PNGS ---
Progress Note: A&P Assessment and Plan (1) Diverticulitis of colon with perforation: Code(s): K57.20 - Diverticulitis of large intestine with perforation and abscess without bleeding Status: Acute Assessment and Plan: Pain is better. No drainable abscess on CT scan. Recommend continue IV antibiotics for a full 7 day course. If pain is still minimal tomorrow, probably can discharge on low-fiber diet and 7 days of Augmentin. I will be seeing the patient in follow-up after discharge. Still could developed pelvic abscess and required drainage so follow-up definitely needed. (2) Chronic narcotic use: Code(s): F11.90 - Opioid use, unspecified, uncomplicated Status: Chronic Assessment and Plan: Agree with increasing p.r.n. narcotics. His chronic opioid use makes assessment more difficult. (3) Chronic pain syndrome: Code(s): G89.4 - Chronic pain syndrome Status: Chronic Assessment and Plan: Primarily left shoulder. Takes [place] 7.5/325 3 times a week per his admission but I suspect he takes it more frequently than that. Subjective Subjective Date/Time Seen: 05/05/22 09:14 Patient reports: feels better, pain is less ( No recurrence severe left lower quadrant or right flank pain), bowel movement ( several bowel movements, much better) and afebrile Review of Systems Review of Systems: All systems reviewed & are unremarkable except as noted in HPI and below ( HPI and those items noted below) Constitutional: Constitutional: Denies chills and Denies fever(s) Cardiovascular: Cardiovascular: Denies chest pain, Denies diaphoresis, Denies dyspnea and Denies paroxysmal nocturnal dyspnea Respiratory: Respiratory: Denies chest congestion, Denies cough and Denies dyspnea Gastrointestinal: Gastrointestinal: Reports as per HPI and Denies constipation Integumentary/Breasts: Skin/Breast: Denies lesions and Denies rash Objective Data Vital Signs Vital Signs: Vital Signs - 24 hr 05/04/22 14:05 05/04/22 20:00 05/04/22 21:54 Temperature 36.3 C L 36.4 C L Pulse Rate 87 77 Respiratory Rate 18 20 Blood Pressure 136/84 125/66 Pulse Oximetry 98 96 Oxygen Delivery Room Air 05/05/22 05:49 Temperature 36.6 C Pulse Rate 59 L Respiratory Rate 20 Blood Pressure 125/67 Pulse Oximetry 95 Oxygen Delivery Intake/Output Intake/Output: Intake & Output 05/02/22 05/03/22 05/04/22 05/05/22 23:59 23:59 23:59 23:59 Intake Total 2830 4650 1410 340 Output Total 750 Balance 2830 4650 660 340 Meds/Results Medications: Active Medications Generic Name Dose Route Start Last Admin Trade Name Freq PRN Reason Stop Dose Admin Hydrocodone Bitart/Acetaminophen 1 tab 05/04/22 10:13 05/05/22 05:34 Hydrocodone/Acetaminophen (*Crx) 7.5-325 Mg Tablet PO 1 tab Q4H PRN Administration Pain Rated 4-10 Enoxaparin Sodium 40 mg 05/01/22 09:00 05/04/22 08:45 Enoxaparin 40 Mg/0.4 Ml Syringe SUB-Q 40 mg DAILY BRITTANY Administration Levofloxacin/Dextrose 750 mg in 150 mls @ 100 mls/hr 05/02/22 13:00 05/04/22 15:54 Levaquin 750 Mg/D5w 150 Ml IVPB Infused NOON BRITTANY Infusion Metronidazole 500 mg in 100 mls @ 100 mls/hr 05/02/22 13:00 05/05/22 06:26 Flagyl 500 Mg/Iso Soln 100 Ml IVPB 100 mls/hr Q6H BRITTANY Administration Ibuprofen 600 mg 05/03/22 09:19 Ibuprofen 600 Mg Tablet PO Q6H PRN Pain Rated 1-3 Lorazepam 0.5 mg 04/29/22 21:01 04/30/22 08:52 Lorazepam Inj (*Crx) 2 Mg/Ml Vial IV PUSH 0.5 mg Q3H PRN Administration Anxiety Lorazepam 0.5 mg 05/03/22 20:12 Lorazepam (*Crx) 0.5 Mg Tablet PO Q8H PRN Anxiety Morphine Sulfate 1 mg 05/04/22 10:13 05/04/22 23:34 Morphine Sulfate (*Crx) 2 Mg/Ml Inj IV PUSH 1 mg Q4H PRN Administration break through pain Naloxone HCl 0.1 mg 04/30/22 10:50 Naloxone Hcl 0.4 Mg/Ml Vial IV PUSH Q2M PRN Opiate Reversal Ondansetron HCl 4
[2022-05-05] MEDS: ENOXAPARIN 40 MG/0.4 ML SYRINGE SUB-Q (09:26)
--- NOTE | 2022-05-05 10:30 | PM.IMPN ---
Progress Note: A&P Assessment and Plan (1) Sepsis: Code(s): A41.9 - Sepsis, unspecified organism Status: Acute Assessment and Plan: Patient met sepsis criteria with leukocytosis, hypotension, lactic acidosis. Source of infection secondary to acute diverticulitis IV fluids DC'd Leukocytosis has resolved, WBC currently 7.5 Low grade fever of 99.8 noted 05/04/22, seems to be resolved Lactic acidosis resolved with IV fluids Blood cultures shows NGTD Send off a urine (2) Perforation of sigmoid colon due to diverticulitis: Code(s): K57.20 - Diverticulitis of large intestine with perforation and abscess without bleeding Status: Acute Assessment and Plan: CT of abdomen/pelvis showed acute sigmoid diverticulitis with microperforation without evidence of drainable abscess collection Continue Levaquin and Flagyl Low fiber diet Pain medications increased to home dose with morphine for break through pain Appreciate general surgeon consultation Encouraged to increase ambulation (3) Suprapubic pain: Code(s): R10.2 - Pelvic and perineal pain Status: Acute Assessment and Plan: Patient complained of suprapubic discomfort and testicular pain with urination Scrotal exam benign. No clinical findings to suggest torsion or other urologic emergency and scrotal ultrasound was unremarkable Suspect this is referred pain secondary to acute diverticulitis CT a/p shows bilateral 1 mm kidney stones unlikely to be etiology and there is no evidence of obstructing stones UA with only trace blood, negative nitrates and leuk esterase Testicular pain remains resolved (4) Chronic pain syndrome: Code(s): G89.4 - Chronic pain syndrome Status: Chronic Assessment and Plan: Patient has chronic shoulder pain. Continue analgesics (5) Anxiety: Code(s): F41.9 - Anxiety disorder, unspecified Status: Chronic Assessment and Plan: No acute issues. 0.5 milligrams IV Ativan p.r.n. as needed while NPO. (6) Abdominal pain: Code(s): R10.9 - Unspecified abdominal pain Status: Acute Assessment and Plan: Complaining of LLQ pain, and right sided flank pain UA did not indicate any infection KUB normal bowel gas pattern Pain medications on board Could be related to a possible kidney stone, or UTI Urine output adequate Continue to trend pain Time Spent With Patient Time with patient: Greater than 35 minutes Subjective Date/time seen: 05/05/22 10:30 Interval history: 11/22/22 1030 Patient stated that he was doing better today. He stated his pain was still 4-5/10. He denies any chest pain, shortness a breath, nausea, vomiting, diarrhea or constipation he did report having a good bowel movement this morning. He also reported that he is still having some flank pain however is is resolving at this time. He is requesting a shower I did wrap is IV for that. Currently patient appears better than yesterday. Patient will need 7 days total of IV antibiotics. 05/04/22 0900 Patient is complaining of some significant pain. He is stating that his pain in the left lower quadrant. He is also complaining of right flank pain. He denies any chest pain, shortness of breath, nausea, vomiting, diarrhea. He did state that he has been able to have a small BM, but did not feel like it was significant enough. Increased pain medications as he take 7.5/325s at home. KUB ordered. He is also complaining of burning with urination. 05/03/22 1000 Patient was lying in bed. Patient stated he is doing okay. He stated that he was able to have a BM with out difficulty. He is also stating that the pain is better as well. He denies any chest pain, shortness of breath, nausea, vomiting, diarrhea, constipation. 05/02/22 1115 Patient stated that he was having like pain. He denies any as chest pain, shortness a breath
--- NOTE | 2022-05-05 10:30 | P.PNIM_ITS ---
Progress Note: A&P Assessment and Plan (1) Sepsis: Code(s): A41.9 - Sepsis, unspecified organism Status: Acute Assessment and Plan: * Patient met sepsis criteria with leukocytosis, hypotension, lactic acidosis. Source of infection secondary to acute diverticulitis * IV fluids DC'd * Leukocytosis has resolved, WBC currently 7.5 * Low grade fever of 99.8 noted 05/04/22, seems to be resolved * Lactic acidosis resolved with IV fluids * Blood cultures shows NGTD * Send off a urine (2) Perforation of sigmoid colon due to diverticulitis: Code(s): K57.20 - Diverticulitis of large intestine with perforation and abscess without bleeding Status: Acute Assessment and Plan: * CT of abdomen/pelvis showed acute sigmoid diverticulitis with microperforation without evidence of drainable abscess collection * Continue Levaquin and Flagyl * Low fiber diet * Pain medications increased to home dose with morphine for break through pain * Appreciate general surgeon consultation * Encouraged to increase ambulation (3) Suprapubic pain: Code(s): R10.2 - Pelvic and perineal pain Status: Acute Assessment and Plan: * Patient complained of suprapubic discomfort and testicular pain with urination * Scrotal exam benign. No clinical findings to suggest torsion or other urologic emergency and scrotal ultrasound was unremarkable * Suspect this is referred pain secondary to acute diverticulitis * CT a/p shows bilateral 1 mm kidney stones unlikely to be etiology and there is no evidence of obstructing stones * UA with only trace blood, negative nitrates and leuk esterase * Testicular pain remains resolved (4) Chronic pain syndrome: Code(s): G89.4 - Chronic pain syndrome Status: Chronic Assessment and Plan: * Patient has chronic shoulder pain. * Continue analgesics (5) Anxiety: Code(s): F41.9 - Anxiety disorder, unspecified Status: Chronic Assessment and Plan: * No acute issues. * 0.5 milligrams IV Ativan p.r.n. as needed while NPO. (6) Abdominal pain: Code(s): R10.9 - Unspecified abdominal pain Status: Acute Assessment and Plan: * Complaining of LLQ pain, and right sided flank pain * UA did not indicate any infection * KUB normal bowel gas pattern * Pain medications on board * Could be related to a possible kidney stone, or UTI * Urine output adequate * Continue to trend pain Time Spent With Patient Time with patient: Greater than 35 minutes Subjective Date/time seen: 05/05/22 10:30 Interval history: 05/05/22 1030 Patient stated that he was doing better today. He stated his pain was still 4- 5/10. He denies any chest pain, shortness a breath, nausea, vomiting, diarrhea or constipation he did report having a good bowel movement this morning. He also reported that he is still having some flank pain however is is resolving at this time. He is requesting a shower I did wrap is IV for that. Currently patient appears better than yesterday. Patient will need 7 days total of IV antibiotics. 05/04/22 0900 Patient is complaining of some significant pain. He is stating that his pain in the left lower quadrant. He is also complaining of right flank pain. He denies any chest pain, shortness of breath, nausea, vomiting, diarrhea. He did state that he has been able to have a small BM, but did not feel like it was signi ficant enough. Increased pain medications as he take 7.5/325s at home. K
--- NOTE | 2022-05-05 12:04 | PCNWS ---
Weekly nutritional screen. Patient is tolerating current Regular, low fiber diet and tolerating at this time. Education provided yesterday on low fiber diet upon discharge. No weight loss reported. No nutritional needs at this time.
[2022-05-05 13:56] VITALS: BP 137/77; PULSE 76; RESP 18; TEMP 36.7; O2SAT 96
[2022-05-05 22:00] VITALS: BP 134/80; PULSE 66; RESP 18; TEMP 36.3; O2SAT 98
[2022-05-06] MEDS: metroNIDAZOLE 500 MG/ISO 100ML 500 MG/100 ML BAG 100 MG IVPB ×2 (00:45→06:05)
[2022-05-06 06:00] VITALS: BP 144/81; PULSE 66; RESP 14; TEMP 36.3; O2SAT 96
[2022-05-06] MEDS: HYDROcodone/acetaminophen (*CRX) 7.5-325 MG TABLET 1 TAB PO (06:04)
--- NOTE | 2022-05-06 07:18 | PM.PNGS ---
Progress Note: A&P Assessment and Plan (1) Perforation of sigmoid colon due to diverticulitis: Code(s): K57.20 - Diverticulitis of large intestine with perforation and abscess without bleeding Status: Acute Assessment and Plan: still some tenderness but overall much improved. I would be okay with discharge today and home on another week of Augmentin. I will see him in the office a week from tomorrow for follow-up. He should stay on a low-fiber diet which I discussed with him. He is at risk for developing an abscess but we would just checked a CT scan 2 days ago and no drainable abscess was seen. I discussed this with him. He will follow-up with me in 1 week. (2) Chronic pain syndrome: Code(s): G89.4 - Chronic pain syndrome Status: Chronic Assessment and Plan: Makes assessment more difficult. (3) Chronic narcotic use: Code(s): F11.90 - Opioid use, unspecified, uncomplicated Status: Chronic Assessment and Plan: Will continue [place] as he was using for shoulder chronic neuropathic pain as before. Subjective Subjective Date/Time Seen: 05/06/22 07:18 Patient reports: no new complaints, pain is less ( At some left lower quadrant pain but not as severe. Overall doing well), bowel movement and afebrile Review of Systems Review of Systems: All systems reviewed & are unremarkable except as noted in HPI and below ( HPI and those items noted below) Constitutional: Constitutional: Denies chills and Denies fever(s) Cardiovascular: Cardiovascular: Denies chest pain, Denies diaphoresis, Denies dyspnea and Denies paroxysmal nocturnal dyspnea Respiratory: Respiratory: Denies chest congestion, Denies cough and Denies dyspnea Integumentary/Breasts: Skin/Breast: Denies lesions and Denies rash Exam Const: General: comfortable and no acute distress; No confusion Orientation/consciousness: patient oriented x3 and No confusion GI: Inspection: normal to inspection and non-distended GI Palp: Yes Soft to palpation, Yes Tenderness to palpation present (GI) ( left suprapubic area, about the same as before), No Guarding due to palpation present (GI), No Hernia present, No Palpable mass present and No Rebound tenderness present Auscultation: normal bowel sounds Neuro: General: patient oriented x3, no focal motor deficits and No confusion Extrem: General: no calf tenderness and no edema Psych: Affect: normal affect Insight: Good insight present (Psych) Judgement: Good judgement present (Psych) Objective Data Vital Signs Vital Signs: Vital Signs - 24 hr 05/05/22 08:00 05/05/22 13:56 05/05/22 22:00 Temperature 36.7 C 36.3 C L Pulse Rate 59 L 76 66 Respiratory Rate 20 18 18 Blood Pressure 137/77 134/80 Pulse Oximetry 95 96 98 Oxygen Delivery Room Air 05/06/22 06:00 Temperature 36.3 C L Pulse Rate 66 Respiratory Rate 14 Blood Pressure 144/81 H Pulse Oximetry 96 Oxygen Delivery Intake/Output Intake/Output: Intake & Output 05/03/22 05/04/22 05/05/22 05/06/22 23:59 23:59 23:59 23:59 Intake Total 4650 1410 1670 600 Output Total 750 300 Balance 4650 660 1670 300 Meds/Results Medications: Active Medications Generic Name Dose Route Start Last Admin Trade Name Freq PRN Reason Stop Dose Admin Hydrocodone Bitart/Acetaminophen 1 tab 05/04/22 10:13 05/06/22 06:04 Hydrocodone/Acetaminophen (*Crx) 7.5-325 Mg Tablet PO 1 tab Q4H PRN Administration Pain Rated 4-10 Enoxaparin Sodium 40 mg 05/01/22 09:00 05/05/22 09:26 Enoxaparin 40 Mg/0.4 Ml Syringe SUB-Q 40 mg DAILY BRITTANY Administration Levofloxacin/Dextrose 750 mg in 150 mls @ 100 mls/hr 05/02/22 13:00 05/05/22 14:38 Levaquin 750 Mg/D5w 150 Ml IVPB Infused NOON BRITTANY Infusion Metronidazole 500 mg in 100 mls @ 100 mls/hr 05/02/22 13:00 05/06/22 06:05 Flagyl 500 Mg/Iso Soln 100 Ml IVPB 100 mls/hr Q6H BRITTANY Administration Ibuprofen 600 mg 05/03/22 09:19
[2022-05-06 07:28] LABS: Anion Gap 7 mmol/L (8-16); Blood Urea Nitrogen 13 mg/dL (9-20); Carbon Dioxide 29 mmol/L (22-30); Chloride 104 mmol/L (98-107); Estimated CRCL calculation 111 ml/min; Estimated Glomerular Filt Rate > 60; Glucose 96 mg/dL (65-110); Potassium 3.5 mmol/L (3.4-5.0); Sodium 140 mmol/L (137-145)
[2022-05-06 07:29] LABS: Basophils Absolute Auto 0.1 K/mm3 (0.0-0.1); Basophils Percent Auto 0.9 % (0.2-1.2); Eosinophils Absolute Auto 0.4 K/mm3 (0-0.3); Eosinophils Percent Auto 4.9 % (0-4.4); Hematocrit 34.9 % (42.0-52.0); Hemoglobin 11.7 g/dL (14.0-18.0); Immature Granulocyte Percent A 3.7 % (0-0.5); Lymphocytes Absolute Auto 1.77 K/mm3 (0.9-3.2); Lymphocytes Percent Auto 21.9 % (18.3-44.2); Mean Corpuscular HGB Conc 33.5 g/dl (32-36); Mean Corpuscular Hemoglobin 30.9 pg (26-34); Mean Corpuscular Volume 92.1 fl (80-100); Mean Platelet Volume 10.2 fl (7.4-10.4); Monocytes Percent Auto 12.2 % (2.6-8.5); Neutrophils Absolute Auto 4.6 K/mm3 (1.3-6.7); Neutrophils Percent Auto 56.4 % (45.5-73.1); Platelet Count Result 311 k/mm3 (150-375); Red Blood Count 3.79 M/mm3 (4.6-6.20); White Blood Count 8.1 K/mm3 (4.5-10.0)
[2022-05-06 08:00] VITALS: PULSE 66; RESP 14; O2SAT 96
--- NOTE | 2022-05-06 09:00 | PM.DS ---
DS: Admitting Diagnosis Discharge Date 05/06/22 0900 Admitting Diagnosis diverticulitis with microperforation, sepsis DS: Discharge Diagnosis Discharge Diagnosis (1) Sepsis: Code(s): A41.9 - Sepsis, unspecified organism Status: Acute Assessment and Plan: Patient met sepsis criteria with leukocytosis, hypotension, lactic acidosis. Source of infection secondary to acute diverticulitis IV fluids DC'd Leukocytosis has resolved, WBC currently 8.1 Low grade fever of 99.8 noted 05/04/22, seems to be resolved Lactic acidosis resolved with IV fluids Blood cultures shows NGTD Send off a urine (2) Perforation of sigmoid colon due to diverticulitis: Code(s): K57.20 - Diverticulitis of large intestine with perforation and abscess without bleeding Status: Acute Assessment and Plan: CT of abdomen/pelvis showed acute sigmoid diverticulitis with microperforation without evidence of drainable abscess collection Continue Levaquin and Flagyl Low fiber diet Pain medications increased to home dose with morphine for break through pain Appreciate general surgeon consultation Encouraged to increase ambulation (3) Suprapubic pain: Code(s): R10.2 - Pelvic and perineal pain Status: Acute Assessment and Plan: Patient complained of suprapubic discomfort and testicular pain with urination Scrotal exam benign. No clinical findings to suggest torsion or other urologic emergency and scrotal ultrasound was unremarkable Suspect this is referred pain secondary to acute diverticulitis CT a/p shows bilateral 1 mm kidney stones unlikely to be etiology and there is no evidence of obstructing stones UA with only trace blood, negative nitrates and leuk esterase Testicular pain remains resolved (4) Chronic pain syndrome: Code(s): G89.4 - Chronic pain syndrome Status: Chronic Assessment and Plan: Patient has chronic shoulder pain. Continue analgesics (5) Anxiety: Code(s): F41.9 - Anxiety disorder, unspecified Status: Chronic Assessment and Plan: No acute issues. 0.5 milligrams IV Ativan p.r.n. as needed while NPO. (6) Abdominal pain: Code(s): R10.9 - Unspecified abdominal pain Status: Acute Assessment and Plan: Complaining of LLQ pain, and right sided flank pain UA did not indicate any infection KUB normal bowel gas pattern Pain medications on board Could be related to a possible kidney stone, or UTI Urine output adequate Continue to trend pain DS: Summary Hospital Course Hospital Course: Patient is a 56-year-old male with a past medical history of anxiety, diverticulitis, gout, kidney stones, chronic pain who presented to the ED with complaints of abdominal pain. CT of the abdomen pelvis was performed upon arrival and showed acute sigmoid diverticulitis with micro perforation without abscess. Patient was started on IV Levaquin and Flagyl. Patient was having major issues with pain and pain medications have been adjusted. Patient was also experiencing some suprapubic pain you ultrasound of the scrotum which did not show any abnormalities. White blood cell count has decreased is currently stable at 8.1. General surgery had been consulted and patient was given 7 days of IV antibiotics. Diet was advanced slowly. Patient has been able to tolerate p.o. intake. Pain is still present however is stable at this time. Patient is stable for discharge at this time per vital signs and lab results. Last KUB did show normal gas bowel pattern. Patient is excited about discharge at this time. Patient will follow-up with General surgery in a week. Education was given about diet. Dietitian did give patient further information about maintaining a low-fiber diet. Patient denies any chest pain, shortness a breath, nausea, vomiting, diarrhea, constipation, weakness or fatigue. Status at Discharge [facility]
--- NOTE | 2022-05-06 09:00 | P.DS_ITS ---
DS: Admitting Diagnosis Discharge Date 05/06/22 0900 Admitting Diagnosis diverticulitis with microperforation, sepsis DS: Discharge Diagnosis Discharge Diagnosis (1) Sepsis: Code(s): A41.9 - Sepsis, unspecified organism Status: Acute Assessment and Plan: * Patient met sepsis criteria with leukocytosis, hypotension, lactic acidosis. Source of infection secondary to acute diverticulitis * IV fluids DC'd * Leukocytosis has resolved, WBC currently 8.1 * Low grade fever of 99.8 noted 05/04/22, seems to be resolved * Lactic acidosis resolved with IV fluids * Blood cultures shows NGTD * Send off a urine (2) Perforation of sigmoid colon due to diverticulitis: Code(s): K57.20 - Diverticulitis of large intestine with perforation and abscess without bleeding Status: Acute Assessment and Plan: * CT of abdomen/pelvis showed acute sigmoid diverticulitis with microperforation without evidence of drainable abscess collection * Continue Levaquin and Flagyl * Low fiber diet * Pain medications increased to home dose with morphine for break through pain * Appreciate general surgeon consultation * Encouraged to increase ambulation (3) Suprapubic pain: Code(s): R10.2 - Pelvic and perineal pain Status: Acute Assessment and Plan: * Patient complained of suprapubic discomfort and testicular pain with urination * Scrotal exam benign. No clinical findings to suggest torsion or other urologic emergency and scrotal ultrasound was unremarkable * Suspect this is referred pain secondary to acute diverticulitis * CT a/p shows bilateral 1 mm kidney stones unlikely to be etiology and there is no evidence of obstructing stones * UA with only trace blood, negative nitrates and leuk esterase * Testicular pain remains resolved (4) Chronic pain syndrome: Code(s): G89.4 - Chronic pain syndrome Status: Chronic Assessment and Plan: * Patient has chronic shoulder pain. * Continue analgesics (5) Anxiety: Code(s): F41.9 - Anxiety disorder, unspecified Status: Chronic Assessment and Plan: * No acute issues. * 0.5 milligrams IV Ativan p.r.n. as needed while NPO. (6) Abdominal pain: Code(s): R10.9 - Unspecified abdominal pain Status: Acute Assessment and Plan: * Complaining of LLQ pain, and right sided flank pain * UA did not indicate any infection * KUB normal bowel gas pattern * Pain medications on board * Could be related to a possible kidney stone, or UTI * Urine output adequate * Continue to trend pain DS: Summary Hospital Course Hospital Course: Patient is a 56-year-old male with a past medical history of anxiety, diverticulitis, gout, kidney stones, chronic pain who presented to the ED with complaints of abdominal pain. CT of the abdomen pelvis was performed upon arrival and showed acute sigmoid diverticulitis with micro perforation without abscess. Patient was started on IV Levaquin and Flagyl. Patient was having evan or issues with pain and pain medications have been adjusted. Patient was also experiencing some suprapubic pain you ultrasound of the scrotum which did not show any abnormalities. White blood cell count has decreased is currently stable at 8.1. General surgery had been consulted and patient was given 7 days of IV antibiotics. Diet was advanced slowly. Patient has been able to tolerate p.o. intake. Pain is still present however is stable at this time. Patient is stable for discharge at
[2022-05-06] MEDS: ENOXAPARIN 40 MG/0.4 ML SYRINGE SUB-Q (09:15)
== END 2022-05-06 11:45 | disposition home or self-care (01) | DRG 872 ==
LOC: ANHED 12:14 → ANH3MEDSUR 13:37
PROVIDERS: Physician Assistant; Surgery; Admitting Provider Internal Medicine; Emergency Provider Emergency Medicine; Visit Provider Nurse Practitioner
DX: A41.9 Sepsis, unspecified organism (principal); K57.20 Diverticulitis of large intestine with perforation and abscess without bleeding; F11.90 Opioid use, unspecified, uncomplicated; F41.9 Anxiety disorder, unspecified; G89.4 Chronic pain syndrome; G47.33 Obstructive sleep apnea (adult) (pediatric); M10.9 Gout, unspecified; M25.519 Pain in unspecified shoulder; N40.0 Benign prostatic hyperplasia without lower urinary tract symptoms; R30.0 Dysuria; R10.2 Pelvic and perineal pain; Z98.84 Bariatric surgery status; Z87.891 Personal history of nicotine dependence
CPT/HCPCS: 36415; 74018; 74177; 76870; 80048; 80053; 81001; 83605; 83690; 83735; 85025; 85027; 87040; 93976; 96361; 96365; 96368; 96375; 96376; 99213; 99285; A9270; G0463; J0131; J1170; J1650; J1741; J1956; J2060; J2270; J2405; J3475; J3480; J7030; J7040; Q9967

== ENCOUNTER 2022-05-11 17:33 | Inpatient (IN) | payer MEDICARE, SELFPAY ==
[2022-05-11] VITALS (12 sets, daily range): BP systolic 110–123; BP diastolic 74–83; PULSE 91–114; RESP 16–18; TEMP 36.8–37.1; O2SAT 96–99
--- NOTE | ~2022-05-11 | CT_ITS ---
EXAMINATION: CT abdomen pelvis w con DATE: 05/17/2022 09:42 INDICATION: Follow-up pelvic abscess. TECHNIQUE: Computed tomography (CT) of the abdomen and pelvis was performed with 100 cc Omnipaque 350 intravenous contrast. The dose-length product was 610.70 mGy-cm. Automated exposure control and iter ative reconstruction technique were employed. COMPARISON: CT dated 05/14/2022 and 05/11/2022. FINDINGS: There is bilateral lower lobe airspace consolidation. No significant pleural effusion. Hear t size normal. There is a laparoscopic adjustable gastric band. The liver, spleen, pancreas, adrenal glands and kidneys are unremarkable. There is a percutaneous drain adjacent to the sigmoid colon just anterior to the external iliac artery. There is a small residual abscess in the pelvis insinuated be tween the bladder and sigmoid colon without significant change in size compared with prior examinatio n allowing for differences of technique. Colonic diverticulosis. Improved pericolonic inflammation of the fat. Bladder is unremarkable. No bladder gas. Nonobstructive bowel pattern. Small hiatal hernia. The spleen, pancreas, adrenal glands are unremarkable. There is nonobstructing bilateral nephrolithi asis. Gallbladder is present. No significant vascular abnormality. Mild lumbar spondylosis. No focal lytic or blastic lesions. There are mildly thickened hyperemic loops of small bowel in the lower abdo men. Correlate for enteritis. There are changes of left inguinal hernia repair. IMPRESSION: 1. No significant change to small perisigmoid abscess compared with 05/14/2022. 2: Developing bilateral lower lobe airspace consolidation which may represent atelectasis and/or pneu monia. 3: Mildly thickened hyperemic small bowel loops in the lower abdomen centrally suspicious for enterit is. 4: Nonobstructing bilateral nephrolithiasis. Reviewed, dictated and finalized at location A. MANAGER IMPRESSION: 1. No significant change to small perisigmoid abscess compared with 05/14/2022. 2: Developing bilateral lower lobe airspace consolidation which may represent a telectasis and/or pneumonia. 3: Mildly thickened hyperemic small bowel loops in the lower abdomen centrally suspicious for enteritis. 4: Nonobstructing bilateral nephrolithiasis.
--- NOTE | ~2022-05-11 | CT_ITS ---
EXAMINATION: CT abdomen pelvis w con DATE: 05/14/2022 10:10 INDICATION: Sigmoid diverticulitis with abscess. TECHNIQUE: Computed tomography (CT) of the abdomen and pelvis was performed with 100 mL Omnipaque 350 intravenous contrast. Automated exposure control and iterative reconstruction technique were employe d. The dose-length product was 650.73 mGy-cm. COMPARISON: CT abdomen and pelvis 05/11/22 FINDINGS: The visualized portions of the lung bases demonstrate moderate dependent atelectasis in the lower lobes. No pleural effusion. The heart size is normal. No pericardial effusion. The liver and g allbladder are normal. There is a lap band around the proximal stomach. The spleen, pancreas, adrenal glands, and kidneys are normal. There are scattered diverticula in the colon. There is a 3.4 x 1.4 x 1.4 cm perisigmoid abscess in the inferior peritoneum. There is fat stranding around the sigmoid col on. There is a percutaneous drain to left and superior to the sigmoid colon. There are foci of free g as in the left lower quadrant with improvement. The appendix is normal. There are no pathologically e nlarged lymph nodes. There are changes of left inguinal hernia repair. There is mild lumbar spondylos is. IMPRESSION: 1. 3.4 x 1.4 x 1.4 cm perisigmoid abscess in the inferior peritoneum that is approximately 3 cm from the percutaneous drain. Reviewed, dictated and finalized at location A. GING MEMBER IMPRESSION: 1. 3.4 x 1.4 x 1.4 cm perisigmoid abscess in the inferior peritoneum that is ap proximately 3 cm from the percutaneous drain.
--- NOTE | ~2022-05-11 | CT_ITS ---
EXAMINATION: CT guide absc cath placement DATE: 05/12/2022 11:30 INDICATION: Retroperitoneal abscess. TECHNIQUE: The procedure including the risks, benefits, and alternatives was discussed with the patie nt. Risks discussed included bleeding and infection. The patient understood the risks and benefits an d agreed to proceed. The skin overlying the abdomen was prepped and draped in usual sterile fashion. Anesthetic was administered with 1% lidocaine subcutaneously. An 18 gauge trochar needle was insert ed into the retroperitoneal abscess with CT guidance. The needle was exchanged over a wire for 6 Fren ch, 8 Kyrgyz, and 9 Kyrgyz dilators and then for an 8.5 [place]z pigtail catheter. The catheter was sti tched to the skin, and a sterile dressing was applied. The mA was adjusted according to patient size. Iterative reconstruction technique was employed. The dose-length product was 161.53 mGy-cm. There we re no immediate complications. FINDINGS: CT images demonstrate the catheter within the fluid collection. 10 mL fluid was aspirated f or testing. IMPRESSION: 1. Successful CT-guided retroperitoneal abscess drainage. 2. 10 mL opaque, lino fluid was sent for aerobic and anaerobic cultures. Reviewed, dictated and finalized at location A. PAPER INSPECTOR AND SHIPPER
--- NOTE | ~2022-05-11 | CT_ITS ---
EXAMINATION: CT abdomen pelvis w con DATE: 05/11/2022 22:40 INDICATION: abd pain, recent diverticulitis with perforation TECHNIQUE: Computed tomography (CT) of the abdomen and pelvis was performed with 100 mL Omnipaque-350 intravenous contrast. Automated exposure control and iterative reconstruction technique were employe d. The dose-length product was 767.43 mGy-cm. COMPARISON: 05/04/2022. FINDINGS: Lower thorax: Coronary artery calcification. Dependent atelectasis. Liver: Normal. Biliary/Gallbladder: Gallbladder is normal. No bile duct dilation. Pancreas: No mass or duct dilation. Spleen: Normal. Adrenals:No mass. Kidneys: Punctate nonobstructing bilateral calculi. No suspicious mass. No hydronephrosis. GI tract: Gastric band, reservoir terminating near the umbilicus. Distal esophageal and gastric wall edema. Single loop of dilated small bowel in the upper abdomen. Normal appendix. Extensive diverticul osis. Similar degree of perisigmoid inflammatory change and wall thickening. Mesentery/Peritoneum: Increased size of the gas and fluid collection in the left lower abdomen, now m easuring 8.9 cm AP by 5.2 cm transverse by 14.6 cm craniocaudad, extending along the left psoas muscl e and into the anterior pelvis, with increased surrounding rim enhancement, and extension to multiple smaller rim enhancing fluid collections in the deep pelvis, the entrance of the left inguinal canal, and adjacent to the lateral aspect of the sigmoid. Small bubbles of free air and trace fluid in the lower mesentery. Retroperitoneum: Atherosclerotic abdominal aortic and/or arterial calcifications. Pelvis: Pelvic organs are within normal limits. Soft Tissues: Soft tissues and body wall unremarkable. Bones: No acute osseous finding. IMPRESSION: Interval worsening retroperitoneal collections in the left lower abdomen and pelvis with findings con cerning for early abscess formation. Presumed mild reactive small bowel ileus, early obstruction coul d appear similar. Reviewed, dictated and finalized at location K. NGUAL ADMINISTRATIVE ASSISTANT IMPRESSION: Interval worsening retroperitoneal collections in the left lower abdomen and pe lvis with findings concerning for early abscess formation. Presumed mild reacti ve small bowel ileus, early obstruction could appear similar.
[2022-05-11 18:19] LABS: Basophils Absolute Auto 0.1 K/mm3 (0.0-0.1); Basophils Percent Auto 0.6 % (0.2-1.2); Eosinophils Percent Auto 0.1 % (0-4.4); Hematocrit 37.6 % (42.0-52.0); Hemoglobin 12.2 g/dL (14.0-18.0); Immature Granulocyte Absolute 0.08 K/mm3 (0.00-0.031); Immature Granulocyte Percent A 0.7 % (0-0.5); Lymphocytes Absolute Auto 1.84 K/mm3 (0.9-3.2); Lymphocytes Percent Auto 15.6 % (18.3-44.2); Mean Corpuscular HGB Conc 32.4 g/dl (32-36); Mean Corpuscular Hemoglobin 30.7 pg (26-34); Mean Corpuscular Volume 94.5 fl (80-100); Monocytes Absolute Auto 0.9 K/mm3 (0.1-0.6); Monocytes Percent Auto 7.2 % (2.6-8.5); Neutrophils Absolute Auto 8.9 K/mm3 (1.3-6.7); Neutrophils Percent Auto 75.8 % (45.5-73.1); Platelet Count Result 656 k/mm3 (150-375); Red Blood Count 3.98 M/mm3 (4.6-6.20); Red Cell Distribution Width 15.5 % (11.5-14.5); White Blood Count 11.8 K/mm3 (4.5-10.0)
[2022-05-11 18:29] LABS: Lactic Acid Reflex 1.2 mmol/L (0.7-2.0)
[2022-05-11 18:30] LABS: Alanine Aminotransferase 27 U/L (6-50); Albumin Level 4.4 g/dL (3.5-5.1); Alkaline Phosphatase 75 U/L (38-126); Anion Gap 7 mmol/L (8-16); Aspartate Amino Transferase 40 U/L (17-59); Bilirubin,Total 0.6 mg/dL (0.2-1.3); Blood Urea Nitrogen 11 mg/dL (9-20); Carbon Dioxide 27 mmol/L (22-30); Chloride 100 mmol/L (98-107); Estimated CRCL calculation 88 ml/min; Estimated Glomerular Filt Rate > 60; Glucose 114 mg/dL (65-110); Lipase 128 U/L (23-300); Potassium 4.4 mmol/L (3.4-5.0); Sodium 134 mmol/L (137-145)
--- NOTE | 2022-05-11 22:01 | ED.ABDPAIN ---
HPI - Abdominal Pain General Chief Complaint: Abdominal Pain Stated Complaint: ABD PAIN Time Seen by Provider: 05/11/22 22:01 Source: patient Mode of arrival: ambulatory Limitations: no limitations History of Present Illness HPI narrative: The patient is a 56-year-old male with a past medical history of diverticulitis with perforation, gout, nephrolithiasis, chronic pain syndrome, anxiety, returning to the emergency department for evaluation of recurrent lower abdominal pain. Patient was recently discharged from this facility 05/06/2022 on oral Augmentin after he was hospitalized for sepsis, acute diverticulitis with perforation. Patient reports he has had moderate pain rated 5/10 in severity in the lower abdomen and left lower quadrant. Patient denies associated fever, chills, nausea or vomiting. He denies constipation or diarrhea. Patient does report some burning with urination without malodorous urine or hematuria. Patient also reports bilateral flank pain. Patient denies upper chest pain, shortness of breath. Patient was on oral Augmentin after discharge from the hospital. He is supposed to have follow-up with Dr. Fernandez 05/18. Related Data Home Medications Medication Instructions Recorded Confirmed Bitter Melon 900 mg PO DAILY 12/07/19 04/29/22 Curcumin/Tumeric 1 cap PO DAILY 12/07/19 04/29/22 Vitamin B-6 1 tablet PO DAILY 12/07/19 04/29/22 araeyedcgib-cmw-ijdwaxeii-vitC 2 cap PO DAILY 12/07/19 04/29/22 capsule (Glucosamine Complex-MSM capsule) lorazepam 0.5 mg tablet 0.5 mg PO TID PRN Spasms 12/07/19 04/29/22 sertraline 50 mg tablet 50 mg PO DAILY 04/27/22 04/29/22 zolpidem 10 mg tablet 10 mg PO HS 04/27/22 04/29/22 Allergies Allergy/AdvReac Type Severity Reaction Status Date / Time No Known Allergies Allergy Mild Verified 05/11/22 17:50 Review of Systems Review of Systems: CONSTITUTIONAL: Denies fever, chills, or sweats. ENT: Denies rhinorrhea, congestion, sore throat, or otalgia. CARDIOVASCULAR: Denies chest pain, palpitations, or edema. RESPIRATORY: Denies cough or dyspnea. GASTROINTESTINAL: Reports abdominal pain, denies nausea, vomiting or diarrhea GENITOURINARY: Reports dysuria without hematuria SKIN: Denies rash or itching. MUSCULOSKELETAL: Denies back pain, joint pain, or myalgia. NEUROLOGIC: Denies headache, numbness, or weakness. [facility] Past Medical History Medical History Anxiety Chronic pain syndrome Diverticulitis Gout Kidney stones, calcium oxalate Obstructive sleep apnea Resolved with weight loss following lap band procedure. Surgical History Surgical History History of arthroscopy of both shoulders History of hernia repair History of laparoscopic adjustable gastric banding Family History Family History Father FH: kidney cancer Social History Social History Social History: Surrogate medical decision maker: Elizabeth Painter, mother. Code status: Full code. Smoking packs per day: 1 Smoking cigarettes per day: 20.0 Years smoked: 25 Smoking pack-years: 25.00 Smoking status: Former smoker Alcohol intake: current Drinks per week: 1 Substance use: never Substance use type: does not use Lack of Transportation: No Lack of Food: Never True Current Housing: I Have Housing Concerned About Future Housing: No Difficulty Paying Gas/Electric Bills: No Difficulty Paying for Meds: No Currently Unemployed: No Education: Associate Degree Difficulty w/ Childcare or Family Care: No Additional living arrangements comments: The patient lives in his own home. Additional occupation/education comments: On disability, previously worked in [employer]. Spiritual care concerns: No Exam Narrative: GENERAL: Awake, alert, conversant H
[2022-05-11 22:34] LABS: Appearance Urine Clear (Clear); Bilirubin Urine 1+ (Negative); Blood Urine Trace-intact (Negative); Color Urine Yellow (Yellow); Glucose Urine UA Negative (Negative); Ketones Urine Negative (Negative); Leukocyte Esterase Ur Negative LEU/UL (Negative); Nitrate Urine Negative (Negative); Protein Urine Trace mg/dL (Negative); Specific Grav Ur 1.025 (1.001-1.035); Urobilinogen Urine 0.2 mg/dL (<2.0)
[2022-05-11 22:59] LABS: Add Urine Microscopic? YES
[2022-05-11] MEDS: MORPHINE SULFATE (*CRX) 4 MG/ML INJ IV PUSH (23:21)
--- NOTE | 2022-05-11 23:33 | PM.IMHP ---
H&P: HPI History of Present Illness Date/Time: 05/11/22 23:33 Chief Complaint: abdominal pain Narrative: This is a 56-year-old male with past medical history significant for obstructive sleep apnea, chronic pain syndrome, gout, kidney stones. Patient was recently discharged on p.o. course of antibiotics for diverticulitis with perforated diverticulum with no abscess, patient noticed progressively getting worse abdominal pain in the hypogastric area worse with urination, had chills, rigors, poor appetite, no nausea or vomiting. In emergency room CT of abdomen and pelvis was significant for. IMPRESSION: Interval worsening retroperitoneal collections in the left lower abdomen and pelvis with findings concerning for early abscess formation. Presumed mild reactive small bowel ileus, early obstruction could appear similar. Review of Systems Review of Systems: abdominal pain, poor appetite, chills. Constitutional: Constitutional: Reports chills, Reports malaise and Reports poor appetite Eyes: Eyes: Denies change in vision ENT: Denies dysphagia, Denies vertigo and Denies odynophagia Cardiovascular: Cardiovascular: Denies chest pain, Denies leg edema and Denies lightheadedness Respiratory: Respiratory: Denies change in phlegm color, Denies chest congestion, Denies cough, Denies excessive phlegm production, Denies pain on inspiration and Denies dyspnea on exertion Gastrointestinal: Gastrointestinal: Reports abdominal pain ( Hypogastric area), Denies dyspepsia, Denies heartburn, Denies diarrhea, Reports nausea and Denies vomiting Genitourinary: Genitourinary: Denies dysuria Musculoskeletal: Musculoskeletal: Denies muscle weakness Integumentary/Breasts: Skin/Breast: Denies rash Neurologic: Denies vertigo, Denies dizziness, Denies focal weakness and Denies Sensory deficit (Neuro) Psychiatric: Psychiatric: Reports no additional psychiatric complaints and Reports as per HPI Endocrine: Endocrine: Denies cold intolerance, Denies flushing, Denies heat intolerance, Denies polyphagia, Denies polydipsia and Denies palpitations Hematologic/Lymphatic: Hematologic/Lymphatic: Reports no additional hematologic/lymphatic complaints and Reports as per HPI Allergic/Immunologic: Allergic/Immunologic: Reports no additional allergic/immunologic complaints and Reports as per HPI [facility] Past Medical History Medical History (Updated 05/12/22 @ 00:39 by Alissa Devine MD) Anxiety Chronic pain syndrome Diverticulitis Gout Kidney stones, calcium oxalate Obstructive sleep apnea Resolved with weight loss following lap band procedure. Surgical History Surgical History History of arthroscopy of both shoulders History of hernia repair History of laparoscopic adjustable gastric banding Family History Family History (Updated 05/12/22 @ 01:06 by Nazia Flores RN) Father FH: kidney cancer Metastatic bone cancer Social History Social History Social History: Surrogate medical decision maker: Elizabeth Painter, mother. Code status: Full code. Smoking packs per day: 1 Smoking cigarettes per day: 20.0 Years smoked: 25 Smoking pack-years: 25.00 Smoking status: Former smoker Alcohol intake: current Drinks per week: 1 Substance use: never Substance use type: does not use Lack of Transportation: No Lack of Food: Never True Current Housing: I Have Housing Concerned About Future Housing: No Difficulty Paying Gas/Electric Bills: No Difficulty Paying for Meds: No Currently Unemployed: No Education: Associate Degree Difficulty w/ Childcare or Family Care: No Additional living arrangements comments: The patient lives in his own home. Additional occupation/education comments: On disability, previously worked in [id number]. Spiritual care concerns: No Meds Home Medications and All
[2022-05-12] VITALS (10 sets, daily range): BP systolic 101–113; BP diastolic 61–76; PULSE 76–87; RESP 16–18; TEMP 36.4–36.8; O2SAT 95–100
[2022-05-12] MEDS: SODIUM CHLORIDE 0.9% IV 1,000 ML 999 ML IV CONT (00:40)
--- NOTE | 2022-05-12 01:04 | ADMGEN ---
This patient, Yevgeniy Painter, was admitted to 3 [facility] Surg Room 307-02. Patient/family oriented to hospital policies and general routines including ID bracelet, bed and alarms, visiting hours, pain management, procedures, bathroom and other care routines, personal items, smoking policy, room service/diet, and visiting hours. Information on how to activate the Rapid Response Team has been discussed. Patient/Family are encouraged to report perceived risks to care and to ask questions if they do not understand what they are told or what they should do.
[2022-05-12] MEDS: LACTATED RINGERS 1,000 ML 125 ML IV CONT ×3 (02:19→20:09)
[2022-05-12] MEDS: MORPHINE SULFATE (*CRX) 4 MG/ML INJ IV PUSH ×2 (04:28→08:51)
[2022-05-12 06:47] LABS: Basophils Absolute Auto 0.1 K/mm3 (0.0-0.1); Basophils Percent Auto 0.6 % (0.2-1.2); Hematocrit 33.1 % (42.0-52.0); Hemoglobin 10.9 g/dL (14.0-18.0); Immature Granulocyte Absolute 0.07 K/mm3 (0.00-0.031); Immature Granulocyte Percent A 0.7 % (0-0.5); Lymphocytes Absolute Auto 1.83 K/mm3 (0.9-3.2); Lymphocytes Percent Auto 18.8 % (18.3-44.2); Mean Corpuscular HGB Conc 32.9 g/dl (32-36); Mean Corpuscular Hemoglobin 30.3 pg (26-34); Mean Corpuscular Volume 91.9 fl (80-100); Mean Platelet Volume 10.2 fl (7.4-10.4); Monocytes Percent Auto 9.8 % (2.6-8.5); Neutrophils Absolute Auto 6.8 K/mm3 (1.3-6.7); Neutrophils Percent Auto 70.1 % (45.5-73.1); Platelet Count Result 617 k/mm3 (150-375); Red Cell Distribution Width 15.6 % (11.5-14.5); White Blood Count 9.8 K/mm3 (4.5-10.0)
[2022-05-12 07:06] LABS: Alanine Aminotransferase 24 U/L (6-50); Albumin Level 3.8 g/dL (3.5-5.1); Alkaline Phosphatase 69 U/L (38-126); Anion Gap 9 mmol/L (8-16); Aspartate Amino Transferase 36 U/L (17-59); Blood Urea Nitrogen 9 mg/dL (9-20); Calcium 8.3 mg/dL (8.4-10.2); Carbon Dioxide 29 mmol/L (22-30); Chloride 99 mmol/L (98-107); Estimated CRCL calculation 79 ml/min; Estimated Glomerular Filt Rate > 60; Glucose 101 mg/dL (65-110); Potassium 4.3 mmol/L (3.4-5.0); Sodium 137 mmol/L (137-145)
[2022-05-12 07:41] LABS: Influenza A QL RT-PCR Negative (Negative); Influenza B QL RT-PCR Negative (Negative); SARS-CoV-2 RNA PCR Negative
[2022-05-12 09:39] LABS: INR 1.1; Prothrombin Time 13.3 Seconds (11.1-14.7)
--- NOTE | 2022-05-12 09:58 | PM.CNGS ---
Assessment and Plan Assessment and plan (1) Diverticulitis of intestine with perforation and abscess: Code(s): K57.80 - Diverticulitis of intestine, part unspecified, with perforation and abscess without bleeding Status: Acute Assessment and Plan: CT scan from the ER reviewed and showed interval worsening retroperitoneal collections of the left lower abdomen now with a fluid and gas collection measuring 8.9 x 5.2 x 14.6 cm extending along the left psoas muscle and extension to multiple smaller rim enhancing fluid collection sin the deep pelvis. We will order CT-guided abscess drainage to be done in Radiology hopefully today. Agree with continuing the IV Zosyn that has been started. Will keep him NPO with IV fluids while waiting for the procedure. Continue to monitor with serial abdominal exams and labs. (2) Chronic narcotic use: Code(s): F11.90 - Opioid use, unspecified, uncomplicated Status: Chronic Assessment and Plan: [place] as needed for chronic right shoulder pain. Plan I have discussed the patient's case and plan of care with Dr. Fernandez. Thank you for allowing us to see the patient in consultation and we will continue to follow along with you. History of Present Illness Consult details Consult date: 05/12/22 Reason for consult: other ( Perforated diverticulitis with abscess) Requesting physician: Reina Perez MD Narrative: This is a 56-year-old man who is known to our service from a recent hospitalization from 04/29/2022 through discharge on 05/06/2022 for acute diverticulitis with microperforation. At that time, his pain was across his lower abdomen and his right flank. He was treated with IV antibiotics and eventually discharged with an additional week of Augmentin. Reportedly was taking his antibiotics as prescribed and initially doing well at home. His bowels had been moving normally and he was tolerating his diet. Yesterday, He began to have an increase in his lower abdominal pain and began having more pain in bilateral flanks. He also reports dysuria and dark urine. In the evening, he felt chilled and his friend recommended he return to the ER for evaluation. CT scan of abdomen and pelvis showed interval worsening retroperitoneal collections in the left lower abdomen and pelvis with findings concerning for early abscess formation, presumed mild reactive ileus or early obstruction. Urinalysis unremarkable. Labs showed a WBC count of 11,800. He was admitted to the Hospitalist service. Our service was consulted for surgical evaluation of diverticular abscess. The patient is now seen on the medical floor. No other changes since discharge other than what is noted above. He has been moving his bowels normally with his last BM yesterday. He is passing gas and denies any nausea or vomiting. He does take [place] 7.5-325 mg for chronic right shoulder pain, reportedly a few times per week. Review of Systems Review of Systems: All systems reviewed & are unremarkable except as noted in HPI and below Constitutional: Constitutional: Reports no additional constitutional complaints, Reports chills, Denies fatigue, Denies fever(s), Denies headache(s) and Denies poor appetite Eyes: Eyes: Reports no additional eye complaints ENT: Reports system reviewed and no additional complaints, except as documented and Denies dizziness Cardiovascular: Cardiovascular: Reports no additional cardiovascular complaints, Denies chest pain and Denies leg edema Respiratory: Respiratory: Reports no additional respiratory complaints, Denies cough and Denies dyspnea Gastrointestinal: Gastrointestinal: Reports as per HPI, Reports no additional gastrointestinal complaints, Reports abdominal pain, Denies melena, Denies bloating, Denies hematochezia, Denies change in bowel habits, Denies constipation, Denies nausea and Denies vomiting Genitourinary: Genitourinary: Reports no additional male genitourinary complaints, Denies hematuria,
--- NOTE | 2022-05-12 10:53 | PM.IMPN ---
Progress Note: A&P Assessment and Plan (1) Intestinal diverticular abscess: Code(s): K63.0 - Abscess of intestine Status: Acute Assessment and Plan: admit to regular medical floor patient started on Zosyn general surgery consulted plan for IR guided drainage today keep NPO (2) Chronic pain syndrome: Code(s): G89.4 - Chronic pain syndrome Status: Chronic Assessment and Plan: pain management (3) Chronic narcotic use: Code(s): F11.90 - Opioid use, unspecified, uncomplicated Status: Chronic Assessment and Plan: unchanged (4) Obstructive sleep apnea: Code(s): G47.33 - Obstructive sleep apnea (adult) (pediatric) Status: Acute Assessment and Plan: CPAP at nighttime Subjective Date/time seen: 05/12/22 10:53 patient has no abdominal pain this morning Review of Systems Review of Systems: abdominal pain, poor appetite, chills. Eyes: Eyes: Denies change in vision ENT: Denies dysphagia, Denies vertigo and Denies odynophagia Cardiovascular: Cardiovascular: Denies chest pain, Denies leg edema and Denies lightheadedness Respiratory: Respiratory: Denies change in phlegm color, Denies chest congestion, Denies cough, Denies excessive phlegm production, Denies pain on inspiration and Denies dyspnea on exertion Gastrointestinal: Gastrointestinal: Reports abdominal pain ( Hypogastric area), Denies dyspepsia, Denies heartburn, Denies diarrhea, Reports nausea and Denies vomiting Genitourinary: Genitourinary: Denies dysuria Musculoskeletal: Musculoskeletal: Denies muscle weakness Integumentary/Breasts: Skin/Breast: Denies rash Neurologic: Denies vertigo, Denies dizziness, Denies focal weakness and Denies Sensory deficit (Neuro) Psychiatric: Psychiatric: Reports no additional psychiatric complaints and Reports as per HPI Endocrine: Endocrine: Denies cold intolerance, Denies flushing, Denies heat intolerance, Denies polyphagia, Denies polydipsia and Denies palpitations Hematologic/Lymphatic: Hematologic/Lymphatic: Reports no additional hematologic/lymphatic complaints and Reports as per HPI Allergic/Immunologic: Allergic/Immunologic: Reports no additional allergic/immunologic complaints and Reports as per HPI Exam Const: General: comfortable, no acute distress, well developed, alert, awake, ill appearing acutely and average body habitus Nutritional Appearance: average body habitus Orientation/consciousness: patient oriented x3 HENMT: Head: normal to inspection, normocephalic and atraumatic Ears: hearing grossly normal bilaterally Face/Nose/Sinus: normal facial exam Face and sinus: normal facial exam Eyes: General: appearance normal, both eyes and all related structures Pupils: Equal, round and reactive pupils present EOM: EOMs intact bilaterally Neck: Neck: full ROM, no lymphadenopathy and no JVD Thyroid: thyroid normal Lymphatic: no lymphadenopathy noted Resp: Effort & Inspection: normal respiratory effort and able to speak in complete sentences Auscultation: clear to auscultation bilaterally Cardio: Jugular venous distension: no JVD Rate: regular rate Rhythm: regular rhythm Heart sounds: S1 normal heart sound present and S2 normal heart sound present GI: Inspection: normal to inspection GI Palp: Yes Soft to palpation, Yes Tenderness to palpation present (GI), No Rigid due to palpation, Yes No hepatosplenomegaly present and Yes Rebound tenderness present : General: Yes deferred Skin: Rashes: no rashes Wounds: no wounds Neuro: General: patient oriented x3 and CN's II-XI intact bilaterally Cranial nerves: Yes CN's II-XII intact bilaterally and Yes Equal, round and reactive pupils present Cognition (Neuro): normal cognition Speech: normal speech Gait exam (Neuro): Unable to assess gait Motor exam (neuro): 5/5 motor strength present throughout Extrem: General: normal to inspection, full ROM, no joint enlargement and no pedal
[2022-05-12] MEDS: SERTRALINE HCL 50 MG TABLET PO (13:51)
[2022-05-12] MEDS: HYDROcodone/acetaminophen (*CRX) 7.5-325 MG TABLET 1 TAB PO (13:51)
[2022-05-12] MEDS: MORPHINE SULFATE (*CRX) 2 MG/ML INJ IV PUSH (20:08)
[2022-05-12] MEDS: ZOLPIDEM TARTRATE (*CRX) 5 MG TABLET PO (23:23)
[2022-05-13] MEDS: LACTATED RINGERS 1,000 ML 125 ML IV CONT (05:31)
[2022-05-13 06:00] VITALS: BP 105/69; PULSE 80; RESP 18; TEMP 36.3; O2SAT 92
[2022-05-13 06:39] LABS: Hematocrit 36.3 % (42.0-52.0); Hemoglobin 11.9 g/dL (14.0-18.0); Mean Corpuscular HGB Conc 32.8 g/dl (32-36); Mean Corpuscular Hemoglobin 31.2 pg (26-34); Mean Corpuscular Volume 95.3 fl (80-100); Platelet Count Result 648 k/mm3 (150-375); Red Blood Count 3.81 M/mm3 (4.6-6.20); Red Cell Distribution Width 15.5 % (11.5-14.5); White Blood Count 9.3 K/mm3 (4.5-10.0)
[2022-05-13 06:41] LABS: Anion Gap 8 mmol/L (8-16); Blood Urea Nitrogen 8 mg/dL (9-20); Calcium 8.8 mg/dL (8.4-10.2); Carbon Dioxide 31 mmol/L (22-30); Chloride 99 mmol/L (98-107); Estimated CRCL calculation 88 ml/min; Estimated Glomerular Filt Rate > 60; Glucose 108 mg/dL (65-110); Potassium 4.5 mmol/L (3.4-5.0); Sodium 138 mmol/L (137-145)
[2022-05-13] MEDS: SERTRALINE HCL 50 MG TABLET PO (08:48)
--- NOTE | 2022-05-13 10:35 | PM.PNGS ---
Progress Note: A&P Assessment and Plan (1) Diverticulitis of intestine with perforation and abscess: Code(s): K57.80 - Diverticulitis of intestine, part unspecified, with perforation and abscess without bleeding Status: Acute Assessment and Plan: S/p perc drain in IR yesterday. Abdominal pain and flank pain is improving. WBC normal and he is afebrile. Will start advancing his diet to low fiber. Continue IV Zosyn. Will consult ID pharmacist for recommendations on duration of IV antibiotics. Encouraged patient to try sitting in the chair and ambulate in the halls as tolerated. (2) Chronic narcotic use: Code(s): F11.90 - Opioid use, unspecified, uncomplicated Status: Chronic Assessment and Plan: Pain has improved and his need for the PRN IV Morphine has decreased, pain tolerable with [place]ia this morning. Plan I have discussed the patient's case and plan of care with Dr. Fernandez. Subjective Subjective Date/Time Seen: 05/13/22 09:45 Patient reports: no new complaints, feels better, pain is less, tolerating liquids well, flatus, no bowel movement (last BM yesterday morning) and afebrile Interval history: Patient seen and examined. Perc drain placed by IR yesterday and 10 cc documented last night by nurse. About 30-40 cc estimated in perc drain at this time. He is feeling much better today. His bilateral flank pain has improved and is now only very mild on the right flank. His lower abdominal pain has also improved. No other complaints at this time. Review of Systems Review of Systems: All systems reviewed & are unremarkable except as noted in HPI and below Exam Const: General: comfortable and no acute distress Orientation/consciousness: patient oriented x3 GI: Inspection: non-distended GI Palp: Yes Soft to palpation, Yes Tenderness to palpation present (GI) (across the lower abdomen, improved), No Guarding due to palpation present (GI) and No Rebound tenderness present Auscultation: normal bowel sounds Other: Perc drain with lino/yellow purulent drainage Extrem: General: normal to inspection and no edema Psych: Mental Status: mental status grossly normal Insight: Good insight present (Psych) Objective Data Vital Signs Vital Signs: Vital Signs - 24 hr 05/12/22 14:00 05/12/22 20:00 05/12/22 22:00 Temperature 98.1 F 97.6 F Pulse Rate 87 87 76 Respiratory Rate 16 16 18 Blood Pressure 101/63 105/61 Pulse Oximetry 95 95 95 Oxygen Delivery Room Air 05/13/22 06:00 Temperature 97.3 F L Pulse Rate 80 Respiratory Rate 18 Blood Pressure 105/69 Pulse Oximetry 92 Oxygen Delivery Intake/Output Intake/Output: Intake & Output 05/10/22 05/11/22 05/12/22 05/13/22 23:59 23:59 23:59 23:59 Intake Total 3500 1340 Output Total 2410 2100 Balance 1090 -760 Meds/Results Medications: Active Medications Generic Name Dose Route Start Last Admin Trade Name Freq PRN Reason Stop Dose Admin Hydrocodone Bitart/Acetaminophen 1 tab 05/12/22 04:13 05/12/22 13:51 Hydrocodone/Acetaminophen (*Crx) 7.5-325 Mg Tablet PO 1 tab Q6H PRN Administration Pain Rated 4-6 Piperacillin/Tazobactam/Dextrose 3.375 gm in 50 mls @ 100 mls/hr 05/12/22 06:00 05/13/22 06:00 Zosyn 3.375 Gm/D5w 50ml Pm IVPB Infused Q6H BRITTANY Infusion Lactated Ringer's 1,000 mls @ 125 mls/hr 05/11/22 23:25 05/13/22 05:31 Lr - Lactated Ringers Iv IV CONT 125 mls/hr .Q8H BRITTANY Administration Acetaminophen 1,000 mg in 100 mls @ 400 mls/hr 05/12/22 11:10 Ofirmev 1,000 Mg Ivpb IVPB 05/13/22 11:09 Q6H PRN Pain Rated 1-3 Lorazepam 0.5 mg 05/12/22 04:13 Lorazepam (*Crx) 0.5 Mg Tablet PO BID PRN Anxiety Morphine Sulfate 4 mg 05/11/22 23:23 05/12/22 08:51 Morphine Sulfate (*Crx) 4 Mg/Ml Inj IV PUSH 4 mg Q2H PRN Administration Pain Rated 7-10 Morphine Sulfate 2 mg 05/12/22 11:10 05/12/22 20:08 Morphine Sulfate (*Crx) 2 Mg/Ml Inj IV P
[2022-05-13] MEDS: HYDROcodone/acetaminophen (*CRX) 7.5-325 MG TABLET 1 TAB PO ×2 (11:06→17:26)
--- NOTE | 2022-05-13 11:47 | IDPHARM ---
Subjective Pharmacy was consulted by Christiano Livingston regarding infectious diseases for Yevgeniy Painter. Yevgeniy Painter is a 56 year old M with concerns regarding diverticulitis with abscess currently undergoing drainage. Background The patient is currently receiving piperacillin/tazobactam ~day 2. The patient's relevant PMH includes a recent admission for diverticulitis in which an abscess was not noted and the patient received parenteral antibiotics for ~8 days per the provider followed by being prescribed another week of oral antibiotics in the form of Augmentin. Additionally, patient is afebrile with no leukocytosis and no renal dysfunction that would warrant changes to the current dosing scheme at time. Abscess culture noted from the percutaneous drain on this approximately retroperitoneal abscess seen on CT. Culture showing gram negative bacilli on gram stain. Assessment/Recommendation/Discussion Spoke with provider about empiric antibiotic selection, targeted therapy, IV to PO transition and duration. Empiric therapy remains appropriate at this time. The most common intra-abdominal gram-negative pathogens are covered well by Zosyn per our antibiogram (E. coli, K. pneumoniae). Additionally, the IV to PO transition can occur quite soon but that and targeted therapy may coincide as we identify the pathogen from the culture in the coming days. Full duration will depend on completion of source control, ideally via this abscess drain. Perhaps 4-7 days after optimal source control, noting the STOP-IT trial evidence in that regard. Will continue to follow for targeted therapy and duration in the coming days. Based on admission on 05/11 with worsening abdominal pain, likely this previous round of Amox/Clav failed, most likely due to lack of source control for this abscess that was not seen on imaging or had yet to develop during the last admission, and perhaps does not indicate any unique resistances of this growing gram-negative bacilli. Thank you for the interesting consult. Daniel Rausch, PharmD Infectious Disease/Antimicrobial Stewardship Pharmacist 05/13/22; [id number]
--- NOTE | 2022-05-13 12:28 | PM.IMPN ---
Progress Note: A&P Assessment and Plan (1) Intestinal diverticular abscess: Code(s): K63.0 - Abscess of intestine Status: Deleted Assessment and Plan: patient started on Zosyn general surgery consulted Drain in place. (2) Chronic pain syndrome: Code(s): G89.4 - Chronic pain syndrome Status: Chronic Assessment and Plan: pain management (3) Chronic narcotic use: Code(s): F11.90 - Opioid use, unspecified, uncomplicated Status: Chronic Assessment and Plan: unchanged (4) Obstructive sleep apnea: Code(s): G47.33 - Obstructive sleep apnea (adult) (pediatric) Status: Acute Assessment and Plan: CPAP at nighttime Subjective Date/time seen: 05/13/22 12:28 no new complaints. Drain in place. Exam Narrative: patient is laying in a stretcher Const: General: comfortable, no acute distress, well developed, alert, awake, ill appearing acutely and average body habitus Nutritional Appearance: average body habitus Orientation/consciousness: patient oriented x3 HENMT: Head: normal to inspection, normocephalic and atraumatic Ears: hearing grossly normal bilaterally Face/Nose/Sinus: normal facial exam Face and sinus: normal facial exam Eyes: General: appearance normal, both eyes and all related structures Pupils: Equal, round and reactive pupils present EOM: EOMs intact bilaterally Neck: Neck: full ROM, no lymphadenopathy and no JVD Thyroid: thyroid normal Lymphatic: no lymphadenopathy noted Resp: Effort & Inspection: normal respiratory effort and able to speak in complete sentences Auscultation: clear to auscultation bilaterally Cardio: Jugular venous distension: no JVD Rate: regular rate Rhythm: regular rhythm Heart sounds: S1 normal heart sound present and S2 normal heart sound present GI: Inspection: normal to inspection : General: Yes deferred Skin: Rashes: no rashes Wounds: no wounds Neuro: General: patient oriented x3, CN's II-XI intact bilaterally and Unable to assess gait Cranial nerves: Yes CN's II-XII intact bilaterally and Yes Equal, round and reactive pupils present Cognition (Neuro): normal cognition Speech: normal speech Gait exam (Neuro): Unable to assess gait Motor exam (neuro): 5/5 motor strength present throughout Sensory Exam: No Sensory deficit (Neuro) Extrem: General: normal to inspection, full ROM, no joint enlargement and no pedal edema Objective Data Vital Signs Vital Signs: Vital Signs - 24 hr 05/12/22 14:00 05/12/22 20:00 05/12/22 22:00 Temperature 98.1 F 97.6 F Pulse Rate 87 87 76 Respiratory Rate 16 16 18 Blood Pressure 101/63 105/61 Pulse Oximetry 95 95 95 Oxygen Delivery Room Air 05/13/22 06:00 Temperature 97.3 F L Pulse Rate 80 Respiratory Rate 18 Blood Pressure 105/69 Pulse Oximetry 92 Oxygen Delivery Intake/Output Intake/Output: Intake & Output 05/10/22 05/11/22 05/12/22 05/13/22 23:59 23:59 23:59 23:59 Intake Total 3500 1390 Output Total 2410 2100 Balance 1090 -710 Meds/Results Medications: Active Medications Generic Name Dose Route Start Last Admin Trade Name Freq PRN Reason Stop Dose Admin Acetaminophen 650 mg 05/13/22 10:39 Acetaminophen 325 Mg Tablet PO Q4H PRN Mild Pain (1-3) or Headache Hydrocodone Bitart/Acetaminophen 1 tab 05/12/22 04:13 05/13/22 11:06 Hydrocodone/Acetaminophen (*Crx) 7.5-325 Mg Tablet PO 1 tab Q6H PRN Administration Pain Rated 4-6 Piperacillin/Tazobactam/Dextrose 3.375 gm in 50 mls @ 100 mls/hr 05/12/22 06:00 05/13/22 12:15 Zosyn 3.375 Gm/D5w 50ml Pm IVPB Infused Q6H BRITTANY Infusion Lorazepam 0.5 mg 05/12/22 04:13 Lorazepam (*Crx) 0.5 Mg Tablet PO BID PRN Anxiety Morphine Sulfate 4 mg 05/11/22 23:23 05/12/22 08:51 Morphine Sulfate (*Crx) 4 Mg/Ml Inj IV PUSH 4 mg Q2H PRN Administration Pain Rated 7-10 Morphine Sulfate 2 mg 05/12/22 11:10
[2022-05-13 13:45] VITALS: BP 103/69; PULSE 88; RESP 16; TEMP 36.1; O2SAT 96
[2022-05-13 20:00] VITALS: PULSE 88; RESP 16; O2SAT 96
[2022-05-13] MEDS: ZOLPIDEM TARTRATE (*CRX) 5 MG TABLET PO (21:19)
[2022-05-13 22:00] VITALS: BP 112/73; PULSE 81; RESP 16; TEMP 36.2; O2SAT 97
[2022-05-14 06:00] VITALS: BP 118/75; PULSE 94; RESP 16; TEMP 36.9; O2SAT 96
[2022-05-14 06:50] LABS: Hematocrit 37.8 % (42.0-52.0); Hemoglobin 12.3 g/dL (14.0-18.0); Mean Corpuscular HGB Conc 32.5 g/dl (32-36); Mean Corpuscular Hemoglobin 30.9 pg (26-34); Mean Platelet Volume 10.2 fl (7.4-10.4); Platelet Count Result 734 k/mm3 (150-375); Red Blood Count 3.98 M/mm3 (4.6-6.20); Red Cell Distribution Width 15.2 % (11.5-14.5); White Blood Count 9.9 K/mm3 (4.5-10.0)
[2022-05-14 07:04] LABS: Anion Gap 10 mmol/L (8-16); Blood Urea Nitrogen 8 mg/dL (9-20); Calcium 8.9 mg/dL (8.4-10.2); Carbon Dioxide 29 mmol/L (22-30); Chloride 99 mmol/L (98-107); Estimated CRCL calculation 79 ml/min; Estimated Glomerular Filt Rate > 60; Glucose 102 mg/dL (65-110); Potassium 4.1 mmol/L (3.4-5.0); Sodium 138 mmol/L (137-145)
[2022-05-14] MEDS: SERTRALINE HCL 50 MG TABLET PO (08:27)
--- NOTE | 2022-05-14 11:15 | PM.IMPN ---
Progress Note: A&P Assessment and Plan (1) Intestinal diverticular abscess: Code(s): K63.0 - Abscess of intestine Status: Deleted Assessment and Plan: patient started on Zosyn general surgery managing Drain in place. await culture results - likely send home next day or 2 on oral antibiotics (2) Chronic pain syndrome: Code(s): G89.4 - Chronic pain syndrome Status: Chronic Assessment and Plan: pain management (3) Chronic narcotic use: Code(s): F11.90 - Opioid use, unspecified, uncomplicated Status: Chronic Assessment and Plan: unchanged (4) Obstructive sleep apnea: Code(s): G47.33 - Obstructive sleep apnea (adult) (pediatric) Status: Acute Assessment and Plan: CPAP at nighttime Subjective Date/time seen: 05/14/22 11:15 no new complaints Exam Const: General: comfortable, no acute distress, well developed, alert, awake, ill appearing acutely and average body habitus Nutritional Appearance: average body habitus Orientation/consciousness: patient oriented x3 HENMT: Head: normal to inspection, normocephalic and atraumatic Ears: hearing grossly normal bilaterally Face/Nose/Sinus: normal facial exam Face and sinus: normal facial exam Eyes: General: appearance normal, both eyes and all related structures Pupils: Equal, round and reactive pupils present EOM: EOMs intact bilaterally Neck: Neck: full ROM, no lymphadenopathy and no JVD Thyroid: thyroid normal Lymphatic: no lymphadenopathy noted Resp: Effort & Inspection: normal respiratory effort and able to speak in complete sentences Auscultation: clear to auscultation bilaterally Cardio: Jugular venous distension: no JVD Rate: regular rate Rhythm: regular rhythm Heart sounds: S1 normal heart sound present and S2 normal heart sound present GI: Inspection: normal to inspection : General: Yes deferred Skin: Rashes: no rashes Wounds: no wounds Neuro: General: patient oriented x3, CN's II-XI intact bilaterally and Unable to assess gait Cranial nerves: Yes CN's II-XII intact bilaterally and Yes Equal, round and reactive pupils present Cognition (Neuro): normal cognition Speech: normal speech Gait exam (Neuro): Unable to assess gait Motor exam (neuro): 5/5 motor strength present throughout Sensory Exam: No Sensory deficit (Neuro) Extrem: General: normal to inspection, full ROM, no joint enlargement and no pedal edema Objective Data Vital Signs Vital Signs: Vital Signs - 24 hr 05/13/22 13:45 05/13/22 20:00 05/13/22 22:00 Temperature 97.0 F L 97.2 F L Pulse Rate 88 88 81 Respiratory Rate 16 16 16 Blood Pressure 103/69 112/73 Pulse Oximetry 96 96 97 Oxygen Delivery Room Air 05/14/22 06:00 05/14/22 08:00 Temperature 98.5 F Pulse Rate 94 Respiratory Rate 16 Blood Pressure 118/75 Pulse Oximetry 96 Oxygen Delivery Room Air Intake/Output Intake/Output: Intake & Output 05/11/22 05/12/22 05/13/22 05/14/22 23:59 23:59 23:59 23:59 Intake Total 3500 2950 1300 Output Total 2410 3130 Balance 1090 -180 1300 Meds/Results Medications: Active Medications Generic Name Dose Route Start Last Admin Trade Name Freq PRN Reason Stop Dose Admin Acetaminophen 650 mg 05/13/22 10:39 Acetaminophen 325 Mg Tablet PO Q4H PRN Mild Pain (1-3) or Headache Hydrocodone Bitart/Acetaminophen 1 tab 05/12/22 04:13 05/13/22 17:26 Hydrocodone/Acetaminophen (*Crx) 7.5-325 Mg Tablet PO 1 tab Q6H PRN Administration Pain Rated 4-6 Piperacillin/Tazobactam/Dextrose 3.375 gm in 50 mls @ 100 mls/hr 05/12/22 06:00 05/14/22 06:45 Zosyn 3.375 Gm/D5w 50ml Pm IVPB Infused Q6H BRITTANY Infusion Lorazepam 0.5 mg 05/12/22 04:13 Lorazepam (*Crx) 0.5 Mg Tablet PO BID PRN Anxiety Morphine Sulfate 4 mg 05/11/22 23:23 05/12/22 08:51 Morphine Sulfate (*Crx) 4 Mg/Ml Inj IV PUSH 4 mg Q2H PRN Administration Pain R
[2022-05-14] MEDS: HYDROcodone/acetaminophen (*CRX) 7.5-325 MG TABLET 1 TAB PO ×2 (13:04→23:09)
[2022-05-14 14:00] VITALS: BP 115/64; PULSE 103; RESP 16; TEMP 36.3; O2SAT 94
--- NOTE | 2022-05-14 15:33 | PM.PNGS ---
Progress Note: A&P Assessment and Plan (1) Diverticulitis of intestine with perforation and abscess: Code(s): K57.80 - Diverticulitis of intestine, part unspecified, with perforation and abscess without bleeding Status: Acute Assessment and Plan: S/p perc drain in IR 05/12. Abdominal pain continues to improve, flank pain has resolved. Tolerating a low fiber diet. Repeated CT abdomen/pelvis this morning with contrast, which showed a small perisigmoid abscess at the inferior peritoneum about 3 cm from the perc drain. Discussed with Dr. Fernandez who will review the CT. Continue IV Zosyn. Awaiting cx results, gram stain showed few gram negative bacilli. (2) Chronic narcotic use: Code(s): F11.90 - Opioid use, unspecified, uncomplicated Status: Chronic Plan I have discussed the patient's case and plan of care with Dr. Fernandez. Subjective Subjective Date/Time Seen: 05/14/22 15:33 Patient reports: no new complaints, pain is less, tolerating a regular diet, flatus, bowel movement (yesterday x 2) and afebrile Interval history: Patient seen and examined. Reports feeling better daily. His lower abdominal pain continues to improve. No more flank pain, feels it is mostly in the RLQ and LLQ but improved. No nausea or vomiting. Tolerating low fiber diet. No other complaints at this time. Review of Systems Review of Systems: All systems reviewed & are unremarkable except as noted in HPI and below Exam Const: General: comfortable, no acute distress and awake Orientation/consciousness: patient oriented x3 GI: Inspection: non-distended GI Palp: Yes Soft to palpation, Yes Tenderness to palpation present (GI) (across the lower abdomen, less tender), No Guarding due to palpation present (GI) and No Rebound tenderness present Auscultation: normal bowel sounds Other: Perc drain with lino/yellow purulent drainage Neuro: General: no focal motor deficits Extrem: General: no calf tenderness bilaterally and no edema Psych: Mental Status: mental status grossly normal Insight: Good insight present (Psych) Objective Data Vital Signs Vital Signs: Vital Signs - 24 hr 05/13/22 20:00 05/13/22 22:00 05/14/22 06:00 Temperature 97.2 F L 98.5 F Pulse Rate 88 81 94 Respiratory Rate 16 16 16 Blood Pressure 112/73 118/75 Pulse Oximetry 96 97 96 Oxygen Delivery Room Air 05/14/22 08:00 Temperature Pulse Rate Respiratory Rate Blood Pressure Pulse Oximetry Oxygen Delivery Room Air Intake/Output Intake/Output: Intake & Output 05/11/22 05/12/22 05/13/22 05/14/22 23:59 23:59 23:59 23:59 Intake Total 3500 2950 1590 Output Total 2410 3130 Balance 1090 -180 1590 Meds/Results Medications: Active Medications Generic Name Dose Route Start Last Admin Trade Name Freq PRN Reason Stop Dose Admin Acetaminophen 650 mg 05/13/22 10:39 Acetaminophen 325 Mg Tablet PO Q4H PRN Mild Pain (1-3) or Headache Hydrocodone Bitart/Acetaminophen 1 tab 05/12/22 04:13 05/14/22 13:04 Hydrocodone/Acetaminophen (*Crx) 7.5-325 Mg Tablet PO 1 tab Q6H PRN Administration Pain Rated 4-6 Piperacillin/Tazobactam/Dextrose 3.375 gm in 50 mls @ 100 mls/hr 05/12/22 06:00 05/14/22 13:33 Zosyn 3.375 Gm/D5w 50ml Pm IVPB Infused Q6H BRITTANY Infusion Lorazepam 0.5 mg 05/12/22 04:13 Lorazepam (*Crx) 0.5 Mg Tablet PO BID PRN Anxiety Morphine Sulfate 4 mg 05/11/22 23:23 05/12/22 08:51 Morphine Sulfate (*Crx) 4 Mg/Ml Inj IV PUSH 4 mg Q2H PRN Administration Pain Rated 7-10 Morphine Sulfate 2 mg 05/12/22 11:10 05/12/22 20:08 Morphine Sulfate (*Crx) 2 Mg/Ml Inj IV PUSH 2 mg Q2H PRN Administration Pain Rated 4-6 Ondansetron HCl 4 mg 05/11/22 23:23 Ondansetron Inj 4 Mg/2 Ml Vial IV PUSH Q4H PRN Nausea Sertraline HCl 50 mg 05/12/22 09:00 05/14/22 08:27 Sertraline Hcl 50 Mg Tablet PO 50 mg DAILY BRITTANY Administration Zolpide
[2022-05-14 20:00] VITALS: PULSE 98; RESP 16; O2SAT 94
[2022-05-14] MEDS: MORPHINE SULFATE (*CRX) 4 MG/ML INJ IV PUSH (20:16)
[2022-05-14 22:00] VITALS: BP 116/74; PULSE 98; RESP 16; TEMP 37.1; O2SAT 94
[2022-05-14] MEDS: ZOLPIDEM TARTRATE (*CRX) 5 MG TABLET PO (23:09)
[2022-05-15 06:12] VITALS: BP 104/71; PULSE 83; RESP 16; TEMP 36.2; O2SAT 92
[2022-05-15] MEDS: SERTRALINE HCL 50 MG TABLET PO (08:59)
[2022-05-15] MEDS: HYDROcodone/acetaminophen (*CRX) 7.5-325 MG TABLET 1 TAB PO (10:09)
[2022-05-15] MEDS: LORazepam (*CRX) 0.5 MG TABLET PO ×2 (10:09→17:17)
--- NOTE | 2022-05-15 11:24 | PM.PNGS ---
Progress Note: A&P Assessment and Plan (1) Diverticulitis of intestine with perforation and abscess: Code(s): K57.80 - Diverticulitis of intestine, part unspecified, with perforation and abscess without bleeding Status: Acute Assessment and Plan: Cultures growing Enterobacter but sensitivities pending. ID pharmacist note appreciated. Continue present antibiotics and low-fiber diet. Patient still having occasional pain as noted in HPI. Still some purulent fluid draining from pigtail catheter. I advised the patient that he does have a small pocket remaining in the pelvis that is separate from the abscess he had drained 2 days ago. There is no fluid in that pocket, only air. If it were to be drained, he would likely require an approach from the back. With this pocket being small, I would advise continuing IV antibiotics and only draining if it should increase in size or become a separate source of infection. (2) Chronic pain syndrome: Code(s): G89.4 - Chronic pain syndrome Status: Chronic Assessment and Plan: Can make assessment more difficult. (3) Chronic narcotic use: Code(s): F11.90 - Opioid use, unspecified, uncomplicated Status: Chronic Assessment and Plan: Takes [place] 7.5/325 regularly. (4) Obstructive sleep apnea: Code(s): G47.33 - Obstructive sleep apnea (adult) (pediatric) Status: Chronic Subjective Subjective Date/Time Seen: 05/15/22 11:24 Post Op day: 2 ( day 2 status post percutaneous abscess drainage) Patient reports: still having pain ( having left lower quadrant and right flank pain after urinating. Was feeling fine before that.), tolerating a regular diet ( Low-fiber diet), bowel movement and afebrile Review of Systems Review of Systems: All systems reviewed & are unremarkable except as noted in HPI and below ( HPI and those items noted below) Constitutional: Constitutional: Denies chills and Denies fever(s) Cardiovascular: Cardiovascular: Denies chest pain, Denies diaphoresis, Denies dyspnea and Denies paroxysmal nocturnal dyspnea Respiratory: Respiratory: Denies chest congestion, Denies cough and Denies dyspnea Integumentary/Breasts: Skin/Breast: Denies lesions and Denies rash Exam Const: General: cooperative, healthy appearing, no acute distress, alert, awake, uncomfortable ( abdominal pain as noted) and well nourished; No confusion Nutritional Appearance: average body habitus Orientation/consciousness: patient oriented x3 and No confusion GI: Inspection: non-distended, incision ( 30 cc from pigtail yesterday, purulent appearing) and scaphoid GI Palp: Yes Soft to palpation, Yes Tenderness to palpation present (GI), No Guarding due to palpation present (GI), No Palpable mass present and No Rebound tenderness present Neuro: General: patient oriented x3, no focal motor deficits and No confusion Extrem: General: no calf tenderness and no edema Psych: Affect: normal affect Insight: Good insight present (Psych) Judgement: Good judgement present (Psych) Objective Data Vital Signs Vital Signs: Vital Signs - 24 hr 05/14/22 14:00 05/14/22 22:00 05/14/22 20:00 Temperature 36.3 C L 37.1 C Pulse Rate 103 H 98 98 Respiratory Rate 16 16 16 Blood Pressure 115/64 116/74 Pulse Oximetry 94 94 94 Oxygen Delivery Room Air 05/15/22 06:12 Temperature 36.2 C L Pulse Rate 83 Respiratory Rate 16 Blood Pressure 104/71 Pulse Oximetry 92 Oxygen Delivery Intake/Output Intake/Output: Intake & Output 05/12/22 05/13/22 05/14/22 05/15/22 23:59 23:59 23:59 23:59 Intake Total 3500 3950 2960 220 Output Total 2410 3130 505 Balance 5517 696 2955 220 Meds/Results Medications: Active Medications Generic Name Dose Route Start Last Admin Trade Name Freq PRN Reason Stop Dose Admin Acetaminophen 650 mg 05/13/22 10:39 Acetaminophen 325 Mg Tablet PO Q4H PRN Mild Pain (1-3) or Headache Hydrocodone B
--- NOTE | 2022-05-15 11:39 | PM.IMPN ---
Progress Note: A&P Assessment and Plan (1) Intestinal diverticular abscess: Code(s): K63.0 - Abscess of intestine Status: Deleted Assessment and Plan: continue Zosyn general surgery managing Drain in place. await culture results - continue IV antibiotics for now (2) Chronic pain syndrome: Code(s): G89.4 - Chronic pain syndrome Status: Chronic Assessment and Plan: pain management (3) Chronic narcotic use: Code(s): F11.90 - Opioid use, unspecified, uncomplicated Status: Chronic Assessment and Plan: unchanged (4) Obstructive sleep apnea: Code(s): G47.33 - Obstructive sleep apnea (adult) (pediatric) Status: Chronic Assessment and Plan: CPAP at nighttime Subjective Date/time seen: 05/15/22 11:39 Complaining of some left lower abdominal cramping Exam Const: General: comfortable, no acute distress, well developed, alert, awake, ill appearing acutely and average body habitus Nutritional Appearance: average body habitus Orientation/consciousness: patient oriented x3 HENMT: Head: normal to inspection, normocephalic and atraumatic Ears: hearing grossly normal bilaterally Face/Nose/Sinus: normal facial exam Face and sinus: normal facial exam Eyes: General: appearance normal, both eyes and all related structures Pupils: Equal, round and reactive pupils present EOM: EOMs intact bilaterally Neck: Neck: full ROM, no lymphadenopathy and no JVD Thyroid: thyroid normal Lymphatic: no lymphadenopathy noted Resp: Effort & Inspection: normal respiratory effort and able to speak in complete sentences Auscultation: clear to auscultation bilaterally Cardio: Jugular venous distension: no JVD Rate: regular rate Rhythm: regular rhythm Heart sounds: S1 normal heart sound present and S2 normal heart sound present GI: Inspection: normal to inspection : General: Yes deferred Skin: Rashes: no rashes Wounds: no wounds Neuro: General: patient oriented x3, CN's II-XI intact bilaterally and Unable to assess gait Cranial nerves: Yes CN's II-XII intact bilaterally and Yes Equal, round and reactive pupils present Cognition (Neuro): normal cognition Speech: normal speech Gait exam (Neuro): Unable to assess gait Motor exam (neuro): 5/5 motor strength present throughout Sensory Exam: No Sensory deficit (Neuro) Extrem: General: normal to inspection, full ROM, no joint enlargement and no pedal edema Objective Data Vital Signs Vital Signs: Vital Signs - 24 hr 05/14/22 14:00 05/14/22 22:00 05/14/22 20:00 Temperature 97.3 F L 98.7 F Pulse Rate 103 H 98 98 Respiratory Rate 16 16 16 Blood Pressure 115/64 116/74 Pulse Oximetry 94 94 94 Oxygen Delivery Room Air 05/15/22 06:12 05/15/22 08:45 Temperature 97.1 F L Pulse Rate 83 Respiratory Rate 16 Blood Pressure 104/71 Pulse Oximetry 92 Oxygen Delivery Room Air Intake/Output Intake/Output: Intake & Output 05/12/22 05/13/22 05/14/22 05/15/22 23:59 23:59 23:59 23:59 Intake Total 3500 3950 2960 220 Output Total 2410 3130 505 Balance 1845 156 5955 220 Meds/Results Medications: Active Medications Generic Name Dose Route Start Last Admin Trade Name Freq PRN Reason Stop Dose Admin Acetaminophen 650 mg 05/13/22 10:39 Acetaminophen 325 Mg Tablet PO Q4H PRN Mild Pain (1-3) or Headache Hydrocodone Bitart/Acetaminophen 1 tab 05/12/22 04:13 05/15/22 10:09 Hydrocodone/Acetaminophen (*Crx) 7.5-325 Mg Tablet PO 1 tab Q6H PRN Administration Pain Rated 4-6 Piperacillin/Tazobactam/Dextrose 3.375 gm in 50 mls @ 100 mls/hr 05/12/22 06:00 05/15/22 08:58 Zosyn 3.375 Gm/D5w 50ml Pm IVPB Infused Q6H BRITTANY Infusion Lorazepam 0.5 mg 05/12/22 04:13 05/15/22 10:09 Lorazepam (*Crx) 0.5 Mg Tablet PO 0.5 mg BID PRN Administration Anxiety Morphine Sulfate 4 mg 05/11/22 23:23 05/14/22 20:16 Morphine Sulfate (*Crx) 4 Mg/Ml Inj
[2022-05-15 14:00] VITALS: BP 112/70; PULSE 89; RESP 18; TEMP 35.9; O2SAT 95
[2022-05-15] MEDS: MORPHINE SULFATE (*CRX) 4 MG/ML INJ IV PUSH (17:10)
[2022-05-15 20:00] VITALS: PULSE 89; RESP 18; O2SAT 95
[2022-05-15] MEDS: ZOLPIDEM TARTRATE (*CRX) 5 MG TABLET PO (21:42)
[2022-05-15 22:00] VITALS: BP 109/62; PULSE 96; RESP 14; TEMP 36.4; O2SAT 94
[2022-05-16 05:50] VITALS: BP 111/65; PULSE 87; RESP 14; TEMP 36.2; O2SAT 93
[2022-05-16] MEDS: SERTRALINE HCL 50 MG TABLET PO (09:29)
[2022-05-16] MEDS: HYDROcodone/acetaminophen (*CRX) 7.5-325 MG TABLET 1 TAB PO ×2 (09:29→17:02)
[2022-05-16] MEDS: LORazepam (*CRX) 0.5 MG TABLET PO ×2 (09:29→17:02)
[2022-05-16 10:08] LABS: Hematocrit 38.1 % (42.0-52.0); Hemoglobin 12.5 g/dL (14.0-18.0); Mean Corpuscular HGB Conc 32.8 g/dl (32-36); Mean Corpuscular Hemoglobin 31.2 pg (26-34); Mean Platelet Volume 10.2 fl (7.4-10.4); Platelet Count Result 797 k/mm3 (150-375); Red Blood Count 4.01 M/mm3 (4.6-6.20); White Blood Count 8.8 K/mm3 (4.5-10.0)
[2022-05-16 10:15] LABS: Anion Gap 9 mmol/L (8-16); Blood Urea Nitrogen 12 mg/dL (9-20); Carbon Dioxide 30 mmol/L (22-30); Chloride 99 mmol/L (98-107); Estimated CRCL calculation 88 ml/min; Estimated Glomerular Filt Rate > 60; Glucose 134 mg/dL (65-110); Potassium 4.1 mmol/L (3.4-5.0); Sodium 138 mmol/L (137-145)
--- NOTE | 2022-05-16 11:03 | PM.IMPN ---
Progress Note: A&P Assessment and Plan (1) Intestinal diverticular abscess: Code(s): K63.0 - Abscess of intestine Status: Deleted Assessment and Plan: continue Zosyn general surgery managing Drain in place. await culture results - continue IV antibiotics for now (2) Chronic pain syndrome: Code(s): G89.4 - Chronic pain syndrome Status: Chronic Assessment and Plan: pain management (3) Chronic narcotic use: Code(s): F11.90 - Opioid use, unspecified, uncomplicated Status: Chronic Assessment and Plan: unchanged (4) Obstructive sleep apnea: Code(s): G47.33 - Obstructive sleep apnea (adult) (pediatric) Status: Chronic Assessment and Plan: CPAP at nighttime Subjective Date/time seen: 05/16/22 11:03 no new complaints Exam Narrative: patient is laying in a stretcher Const: General: comfortable, no acute distress, well developed, alert, awake, ill appearing acutely and average body habitus Nutritional Appearance: average body habitus Orientation/consciousness: patient oriented x3 HENMT: Head: normal to inspection, normocephalic and atraumatic Ears: hearing grossly normal bilaterally Face/Nose/Sinus: normal facial exam Face and sinus: normal facial exam Eyes: General: appearance normal, both eyes and all related structures Pupils: Equal, round and reactive pupils present EOM: EOMs intact bilaterally Neck: Neck: full ROM, no lymphadenopathy and no JVD Thyroid: thyroid normal Lymphatic: no lymphadenopathy noted Resp: Effort & Inspection: normal respiratory effort and able to speak in complete sentences Auscultation: clear to auscultation bilaterally Cardio: Jugular venous distension: no JVD Rate: regular rate Rhythm: regular rhythm Heart sounds: S1 normal heart sound present and S2 normal heart sound present GI: Inspection: normal to inspection : General: Yes deferred Skin: Rashes: no rashes Wounds: no wounds Neuro: General: patient oriented x3, CN's II-XI intact bilaterally and Unable to assess gait Cranial nerves: Yes CN's II-XII intact bilaterally and Yes Equal, round and reactive pupils present Cognition (Neuro): normal cognition Speech: normal speech Gait exam (Neuro): Unable to assess gait Motor exam (neuro): 5/5 motor strength present throughout Sensory Exam: No Sensory deficit (Neuro) Extrem: General: normal to inspection, full ROM, no joint enlargement and no pedal edema Objective Data Vital Signs Vital Signs: Vital Signs - 24 hr 05/15/22 14:00 05/15/22 20:00 05/15/22 22:00 Temperature 96.7 F L 97.5 F L Pulse Rate 89 89 96 Respiratory Rate 18 18 14 Blood Pressure 112/70 109/62 Pulse Oximetry 95 95 94 Oxygen Delivery Room Air 05/16/22 05:50 05/16/22 09:00 Temperature 97.1 F L Pulse Rate 87 Respiratory Rate 14 Blood Pressure 111/65 Pulse Oximetry 93 Oxygen Delivery Room Air Intake/Output Intake/Output: Intake & Output 05/13/22 05/14/22 05/15/22 05/16/22 23:59 23:59 23:59 23:59 Intake Total 3950 2960 1382 840 Output Total 3130 505 1600 275 Balance 820 2455 -218 565 Meds/Results Medications: Active Medications Generic Name Dose Route Start Last Admin Trade Name Freq PRN Reason Stop Dose Admin Acetaminophen 650 mg 05/13/22 10:39 Acetaminophen 325 Mg Tablet PO Q4H PRN Mild Pain (1-3) or Headache Hydrocodone Bitart/Acetaminophen 1 tab 05/12/22 04:13 05/16/22 09:29 Hydrocodone/Acetaminophen (*Crx) 7.5-325 Mg Tablet PO 1 tab Q6H PRN Administration Pain Rated 4-6 Piperacillin/Tazobactam/Dextrose 3.375 gm in 50 mls @ 100 mls/hr 05/12/22 06:00 05/16/22 10:47 Zosyn 3.375 Gm/D5w 50ml Pm IVPB Infused Q6H BRITTANY Infusion Lorazepam 0.5 mg 05/12/22 04:13 05/16/22 09:29 Lorazepam (*Crx) 0.5 Mg Tablet PO 0.5 mg BID PRN Administration Anxiety Morphine Sulfate 4 mg 05/11/22 23:23 05/15/22 17:10 Morphine Sulfate (*
--- NOTE | 2022-05-16 12:16 | PM.PNGS ---
Progress Note: A&P Assessment and Plan (1) Diverticulitis of intestine with perforation and abscess: Code(s): K57.80 - Diverticulitis of intestine, part unspecified, with perforation and abscess without bleeding Status: Acute Assessment and Plan: continue IV antibiotics. Discussed with hospitalist, Dr. Lutz. Will repeat CT scan either tomorrow or Wednesday. 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 Will probably discharge on Cipro and metronidazole following this hospitalization. Patient still has the right-sided collection which is really only air on the CT scan which I am worried about causing it another abscess. Continue IV antibiotics and recheck CT as noted. Continue low-fiber diet. Subjective Subjective Date/Time Seen: 05/16/22 12:16 Patient reports: feels better, still having pain ( Better than yesterday, mostly at pigtail site this morning), tolerating a regular diet ( low-fiber diet), bowel movement and afebrile Review of Systems Review of Systems: All systems reviewed & are unremarkable except as noted in HPI and below ( HPI and those items noted below) Constitutional: Constitutional: Denies chills and Denies fever(s) Cardiovascular: Cardiovascular: Denies chest pain, Denies diaphoresis, Denies dyspnea and Denies paroxysmal nocturnal dyspnea Respiratory: Respiratory: Denies chest congestion, Denies cough and Denies dyspnea Integumentary/Breasts: Skin/Breast: Denies lesions and Denies rash Exam Const: General: comfortable and no acute distress; No confusion Orientation/consciousness: patient oriented x3 and No confusion GI: Inspection: non-distended, incision ( some purulent fluid noted in pigtail drain this morning.), scaphoid and other ( No output recorded yesterday from pigtail) GI Palp: Yes Soft to palpation, Yes Tenderness to palpation present (GI) ( at pigtail catheter site), No Guarding due to palpation present (GI) and No Rebound tenderness present Auscultation: normal bowel sounds Neuro: General: patient oriented x3, no focal motor deficits and No confusion Extrem: General: no calf tenderness and no edema Psych: Affect: normal affect Insight: Good insight present (Psych) Judgement: Good judgement present (Psych) Objective Data Vital Signs Vital Signs: Vital Signs - 24 hr 05/15/22 14:00 05/15/22 20:00 05/15/22 22:00 Temperature 35.9 C L 36.4 C L Pulse Rate 89 89 96 Respiratory Rate 18 18 14 Blood Pressure 112/70 109/62 Pulse Oximetry 95 95 94 Oxygen Delivery Room Air 05/16/22 05:50 05/16/22 09:00 Temperature 36.2 C L Pulse Rate 87 Respiratory Rate 14 Blood Pressure 111/65 Pulse Oximetry 93 Oxygen Delivery Room Air Intake/Output Intake/Output: Intake & Output 05/13/22 05/14/22 05/15/22 05/16/22 23:59 23:59 23:59 23:59 Intake Total 3950 2960 1382 840 Output Total 3130 505 1600 275 Balance 820 2455 -218 565 Meds/Results Medications: Active Medications Generic Name Dose Route Start Last Admin Trade Name Freq PRN Reason Stop Dose Admin Acetaminophen 650 mg 05/13/22 10:39 Acetaminophen 325 Mg Tablet PO Q4H PRN Mild Pain (1-3) or Headache Hydrocodone Bitart/Acetaminophen 1 tab 05/12/22 04:13 05/16/22 09:29 Hydrocodone/Acetaminophen (*Crx) 7.5-325 Mg Tablet PO 1 tab Q6H PRN Administration Pain Rated 4-6 Piperacillin/Tazobactam/Dextrose 3.375 gm in 50 mls @ 100 mls/hr 05/12/22 06:00 05/16/22 10:47 Zosyn 3.375 Gm/D5w 50ml Pm IVPB Infused Q6H BRITTANY Infusion Lorazepam 0.5 mg 05/12/22 04:13 05/16/22 09:29 Lorazepam (*Crx) 0.5 Mg Tablet PO 0.5 mg BID PRN Administration Anxiety Morphine Sulfate 4 mg 05/11/22 23:23 05/15/22 17:10 Morphine Sulfate (*Crx) 4 Mg/Ml Inj IV PUSH 4 mg Q2H PRN Administration Pain Rated 7-10 Morphine Sulfate 2 mg 05/12/22 11:10 05/12/22 20:08 Morphine Sulfate (*Crx) 2 Mg/Ml Inj I
[2022-05-16 14:00] VITALS: BP 123/77; PULSE 108; RESP 20; TEMP 35.9; O2SAT 94
[2022-05-16] MEDS: ZOLPIDEM TARTRATE (*CRX) 5 MG TABLET PO (20:03)
[2022-05-16] MEDS: MORPHINE SULFATE (*CRX) 2 MG/ML INJ IV PUSH (21:32)
[2022-05-16 22:00] VITALS: BP 111/68; PULSE 83; RESP 14; TEMP 36.4; O2SAT 96
[2022-05-17] MEDS: HYDROcodone/acetaminophen (*CRX) 7.5-325 MG TABLET 1 TAB PO ×2 (05:47→19:10)
[2022-05-17 06:00] VITALS: BP 127/63; PULSE 91; RESP 16; TEMP 36.8; O2SAT 93
--- NOTE | 2022-05-17 08:10 | PM.PNGS ---
Progress Note: A&P Assessment and Plan (1) Diverticulitis of intestine with perforation and abscess: Code(s): K57.80 - Diverticulitis of intestine, part unspecified, with perforation and abscess without bleeding Status: Acute Assessment and Plan: Looks better today. Will get CT scan to follow-up on right-sided pelvic 3 cm abscess. Possibly home tomorrow with drain in place on oral antibiotics. Subjective Subjective Date/Time Seen: 05/17/22 08:10 Patient reports: no new complaints, feels better, pain is less, tolerating a regular diet ( Low-fiber diet), bowel movement and afebrile Review of Systems Review of Systems: All systems reviewed & are unremarkable except as noted in HPI and below ( HPI and those items noted below) Constitutional: Constitutional: Denies chills and Denies fever(s) Cardiovascular: Cardiovascular: Denies chest pain, Denies diaphoresis, Denies dyspnea and Denies paroxysmal nocturnal dyspnea Respiratory: Respiratory: Denies chest congestion, Denies cough and Denies dyspnea Integumentary/Breasts: Skin/Breast: Denies lesions and Denies rash Exam Const: General: comfortable, alert and awake Nutritional Appearance: average body habitus Orientation/consciousness: patient oriented x3 GI: Inspection: non-distended and incision ( pigtail with purulent drainage, 25 cc out yesterday.) GI Palp: Yes Soft to palpation and No Tenderness to palpation present (GI) Objective Data Vital Signs Vital Signs: Vital Signs - 24 hr 05/16/22 09:00 05/16/22 14:00 05/16/22 22:00 Temperature 35.9 C L 36.4 C Pulse Rate 108 H 83 Respiratory Rate 20 14 Blood Pressure 123/77 111/68 Pulse Oximetry 94 96 Oxygen Delivery Room Air 05/16/22 20:03 05/17/22 06:00 Temperature 36.8 C Pulse Rate 91 Respiratory Rate 16 Blood Pressure 127/63 Pulse Oximetry 93 Oxygen Delivery Room Air Intake/Output Intake/Output: Intake & Output 05/14/22 05/15/22 05/16/22 05/17/22 23:59 23:59 23:59 23:59 Intake Total 2960 1382 1590 900 Output Total 505 1600 275 25 Balance 2455 -218 1315 875 Meds/Results Medications: Active Medications Generic Name Dose Route Start Last Admin Trade Name Freq PRN Reason Stop Dose Admin Acetaminophen 650 mg 05/13/22 10:39 Acetaminophen 325 Mg Tablet PO Q4H PRN Mild Pain (1-3) or Headache Hydrocodone Bitart/Acetaminophen 1 tab 05/12/22 04:13 05/17/22 05:47 Hydrocodone/Acetaminophen (*Crx) 7.5-325 Mg Tablet PO 1 tab Q6H PRN Administration Pain Rated 4-6 Piperacillin/Tazobactam/Dextrose 3.375 gm in 50 mls @ 100 mls/hr 05/12/22 06:00 05/17/22 06:01 Zosyn 3.375 Gm/D5w 50ml Pm IVPB Infused Q6H BRITTANY Infusion Lorazepam 0.5 mg 05/12/22 04:13 05/16/22 17:02 Lorazepam (*Crx) 0.5 Mg Tablet PO 0.5 mg BID PRN Administration Anxiety Morphine Sulfate 4 mg 05/11/22 23:23 05/15/22 17:10 Morphine Sulfate (*Crx) 4 Mg/Ml Inj IV PUSH 4 mg Q2H PRN Administration Pain Rated 7-10 Morphine Sulfate 2 mg 05/12/22 11:10 05/16/22 21:32 Morphine Sulfate (*Crx) 2 Mg/Ml Inj IV PUSH 2 mg Q2H PRN Administration Pain Rated 4-6 Ondansetron HCl 4 mg 05/11/22 23:23 Ondansetron Inj 4 Mg/2 Ml Vial IV PUSH Q4H PRN Nausea Sertraline HCl 50 mg 05/12/22 09:00 05/16/22 09:29 Sertraline Hcl 50 Mg Tablet PO 50 mg DAILY BRITTANY Administration Zolpidem Tartrate 5 mg 05/12/22 21:00 05/16/22 20:03 Zolpidem Tartrate (*Crx) 5 Mg Tablet PO 5 mg HS BRTITANY Administration Radiology Results: ITS Impressions Catheter Placement CT 05/12/22 11:38 IMPRESSION: 1. Successful CT-guided retroperitoneal abscess drainage. 2. 10 mL opaque, lino fluid was sent for aerobic and anaerobic cultures. Abdomen/Pelvis CT 05/14/22 10:16 IMPRESSION: 1. 3.4 x 1.4 x 1.4 cm perisigmoid abscess in the inferior peritoneum that is approximately 3 cm from the percutaneous drain. Labs Lab
[2022-05-17] MEDS: SERTRALINE HCL 50 MG TABLET PO (09:21)
[2022-05-17] MEDS: LORazepam (*CRX) 0.5 MG TABLET PO ×2 (09:21→17:31)
--- NOTE | 2022-05-17 11:37 | PM.IMPN ---
Progress Note: A&P Assessment and Plan (1) Intestinal diverticular abscess: Code(s): K63.0 - Abscess of intestine Status: Deleted Assessment and Plan: continue Zosyn general surgery managing Drain in place. await culture results - continue IV antibiotics for now (2) Chronic pain syndrome: Code(s): G89.4 - Chronic pain syndrome Status: Chronic Assessment and Plan: pain management (3) Chronic narcotic use: Code(s): F11.90 - Opioid use, unspecified, uncomplicated Status: Chronic Assessment and Plan: unchanged (4) Obstructive sleep apnea: Code(s): G47.33 - Obstructive sleep apnea (adult) (pediatric) Status: Chronic Assessment and Plan: CPAP at nighttime Subjective Date/time seen: 05/17/22 11:37 no complaints Exam Const: General: comfortable, no acute distress, well developed, alert, awake, ill appearing acutely and average body habitus Nutritional Appearance: average body habitus Orientation/consciousness: patient oriented x3 HENMT: Head: normal to inspection, normocephalic and atraumatic Ears: hearing grossly normal bilaterally Face/Nose/Sinus: normal facial exam Face and sinus: normal facial exam Eyes: General: appearance normal, both eyes and all related structures Pupils: Equal, round and reactive pupils present EOM: EOMs intact bilaterally Neck: Neck: full ROM, no lymphadenopathy and no JVD Thyroid: thyroid normal Lymphatic: no lymphadenopathy noted Resp: Effort & Inspection: normal respiratory effort and able to speak in complete sentences Auscultation: clear to auscultation bilaterally Cardio: Jugular venous distension: no JVD Rate: regular rate Rhythm: regular rhythm Heart sounds: S1 normal heart sound present and S2 normal heart sound present GI: Inspection: normal to inspection : General: Yes deferred Skin: Rashes: no rashes Wounds: no wounds Neuro: General: patient oriented x3, CN's II-XI intact bilaterally and Unable to assess gait Cranial nerves: Yes CN's II-XII intact bilaterally and Yes Equal, round and reactive pupils present Cognition (Neuro): normal cognition Speech: normal speech Gait exam (Neuro): Unable to assess gait Motor exam (neuro): 5/5 motor strength present throughout Sensory Exam: No Sensory deficit (Neuro) Extrem: General: normal to inspection, full ROM, no joint enlargement and no pedal edema Objective Data Vital Signs Vital Signs: Vital Signs - 24 hr 05/16/22 14:00 05/16/22 22:00 05/16/22 20:03 Temperature 96.7 F L 97.6 F Pulse Rate 108 H 83 Respiratory Rate 20 14 Blood Pressure 123/77 111/68 Pulse Oximetry 94 96 Oxygen Delivery Room Air 05/17/22 06:00 05/17/22 08:00 Temperature 98.2 F Pulse Rate 91 Respiratory Rate 16 Blood Pressure 127/63 Pulse Oximetry 93 Oxygen Delivery Room Air Intake/Output Intake/Output: Intake & Output 05/14/22 05/15/22 05/16/22 05/17/22 23:59 23:59 23:59 23:59 Intake Total 2960 1382 1590 1140 Output Total 505 1600 275 25 Balance 2455 -218 1315 1115 Meds/Results Medications: Active Medications Generic Name Dose Route Start Last Admin Trade Name Freq PRN Reason Stop Dose Admin Acetaminophen 650 mg 05/13/22 10:39 Acetaminophen 325 Mg Tablet PO Q4H PRN Mild Pain (1-3) or Headache Hydrocodone Bitart/Acetaminophen 1 tab 05/12/22 04:13 05/17/22 05:47 Hydrocodone/Acetaminophen (*Crx) 7.5-325 Mg Tablet PO 1 tab Q6H PRN Administration Pain Rated 4-6 Piperacillin/Tazobactam/Dextrose 3.375 gm in 50 mls @ 100 mls/hr 05/12/22 06:00 05/17/22 06:01 Zosyn 3.375 Gm/D5w 50ml Pm IVPB Infused Q6H BRITTANY Infusion Lorazepam 0.5 mg 05/12/22 04:13 05/17/22 09:21 Lorazepam (*Crx) 0.5 Mg Tablet PO 0.5 mg BID PRN Administration Anxiety Morphine Sulfate 4 mg 05/11/22 23:23 05/15/22 17:10 Morphine Sulfate (*Crx) 4 Mg/Ml Inj IV PUSH 4 mg Q2H PRN Administrati
[2022-05-17 14:00] VITALS: BP 111/75; PULSE 90; RESP 16; TEMP 36.3; O2SAT 95
[2022-05-17] MEDS: ZOLPIDEM TARTRATE (*CRX) 5 MG TABLET PO (20:40)
[2022-05-17 22:00] VITALS: BP 114/76; PULSE 88; RESP 18; TEMP 36.6; O2SAT 96
[2022-05-18 06:00] VITALS: BP 112/67; PULSE 86; RESP 20; TEMP 36.6; O2SAT 97
[2022-05-18] MEDS: SERTRALINE HCL 50 MG TABLET PO (08:40)
--- NOTE | 2022-05-18 09:09 | PM.PNGS ---
Progress Note: A&P Assessment and Plan (1) Diverticulitis of intestine with perforation and abscess: Code(s): K57.80 - Diverticulitis of intestine, part unspecified, with perforation and abscess without bleeding Status: Acute Assessment and Plan: okay to discharge today from my perspective. Patient will stay on low-fiber diet. 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 We will continue him on ciprofloxacin and metronidazole for a week. The drain will stay in place. Patient will record output on a daily basis and bring this record with him to his office visit in 1 week. Probably remove the drain at that visit. There is some risk of the smaller abscess still causingproblems but hopefully it will resolve with the antibiotic therapy. Subjective Subjective Date/Time Seen: 05/18/22 09:09 Patient reports: no new complaints, feels better, tolerating a regular diet ( low-fiber diet), bowel movement and afebrile Review of Systems Review of Systems: All systems reviewed & are unremarkable except as noted in HPI and below ( HPI) Exam Const: General: comfortable and no acute distress; No confusion Orientation/consciousness: patient oriented x3 and No confusion GI: Inspection: incision ( LUIS EDUARDO with purulent drainage, small amount, 10 cc yesterday) and scaphoid GI Palp: Yes Soft to palpation, Yes Tenderness to palpation present (GI) ( only at pigtail site), No Guarding due to palpation present (GI) and No Rebound tenderness present Auscultation: normal bowel sounds Neuro: General: patient oriented x3, no focal motor deficits and No confusion Extrem: General: no calf tenderness and no edema Psych: Affect: normal affect Insight: Good insight present (Psych) Judgement: Good judgement present (Psych) Objective Data Vital Signs Vital Signs: Vital Signs - 24 hr 05/17/22 14:00 05/17/22 22:00 05/17/22 20:00 Temperature 36.3 C L 36.6 C Pulse Rate 90 88 Respiratory Rate 16 18 Blood Pressure 111/75 114/76 Pulse Oximetry 95 96 Oxygen Delivery Room Air 05/18/22 06:00 Temperature 36.6 C Pulse Rate 86 Respiratory Rate 20 Blood Pressure 112/67 Pulse Oximetry 97 Oxygen Delivery Intake/Output Intake/Output: Intake & Output 05/15/22 05/16/22 05/17/22 05/18/22 23:59 23:59 23:59 23:59 Intake Total 1382 1590 1960 50 Output Total 1600 275 25 10 Balance -218 1315 1935 40 Meds/Results Medications: Active Medications Generic Name Dose Route Start Last Admin Trade Name Freq PRN Reason Stop Dose Admin Acetaminophen 650 mg 05/13/22 10:39 Acetaminophen 325 Mg Tablet PO Q4H PRN Mild Pain (1-3) or Headache Hydrocodone Bitart/Acetaminophen 1 tab 05/12/22 04:13 05/17/22 19:10 Hydrocodone/Acetaminophen (*Crx) 7.5-325 Mg Tablet PO 1 tab Q6H PRN Administration Pain Rated 4-6 Piperacillin/Tazobactam/Dextrose 3.375 gm in 50 mls @ 100 mls/hr 05/12/22 06:00 05/18/22 05:46 Zosyn 3.375 Gm/D5w 50ml Pm IVPB 100 mls/hr Q6H BRITTANY Administration Lorazepam 0.5 mg 05/12/22 04:13 05/17/22 17:31 Lorazepam (*Crx) 0.5 Mg Tablet PO 0.5 mg BID PRN Administration Anxiety Morphine Sulfate 4 mg 05/11/22 23:23 05/15/22 17:10 Morphine Sulfate (*Crx) 4 Mg/Ml Inj IV PUSH 4 mg Q2H PRN Administration Pain Rated 7-10 Morphine Sulfate 2 mg 05/12/22 11:10 05/16/22 21:32 Morphine Sulfate (*Crx) 2 Mg/Ml Inj IV PUSH 2 mg Q2H PRN Administration Pain Rated 4-6 Ondansetron HCl 4 mg 05/11/22 23:23 Ondansetron Inj 4 Mg/2 Ml Vial IV PUSH Q4H PRN Nausea Sertraline HCl 50 mg 05/12/22 09:00 05/18/22 08:40 Sertraline Hcl 50 Mg Tablet PO 50 mg DAILY BRITTANY Administration Zolpidem Tartrate 5 mg 05/12/22 21:00 05/17/22 20:40 Zolpidem Tartrate (*Crx) 5 Mg Tablet PO 5 mg HS BRITTANY Administration Radiology Results: ITS Impressions Catheter Placement CT 05/12/22 11:38 IMPRESSION: 1. Successful CT-guided re
--- NOTE | 2022-05-18 10:09 | PCNWS ---
Weekly nutritional screen. Patient is tolerating current low fiber diet with adequate intake at 50-100% most meals. Was educated last admission on low fiber diet for use at home. No weight loss reported. Possible discharge today. No nutritional needs at this time.
--- NOTE | 2022-05-18 11:17 | PM.DS ---
DS: Admitting Diagnosis Discharge Date May 18, 2022 Admitting Diagnosis diverticular abscess with drain DS: Discharge Diagnosis Discharge Diagnosis (1) Intestinal diverticular abscess: Code(s): K63.0 - Abscess of intestine Status: Deleted Assessment and Plan: general surgery managing Drain in place. await culture results - continue IV antibiotics for now (2) Chronic pain syndrome: Code(s): G89.4 - Chronic pain syndrome Status: Chronic Assessment and Plan: pain management (3) Chronic narcotic use: Code(s): F11.90 - Opioid use, unspecified, uncomplicated Status: Chronic Assessment and Plan: unchanged (4) Obstructive sleep apnea: Code(s): G47.33 - Obstructive sleep apnea (adult) (pediatric) Status: Chronic Assessment and Plan: CPAP at nighttime DS: Summary Hospital Course Hospital Course: 56-year-old male came in with diverticular abscess had a drain placed. Cultures did grow in a row. Patient be sent home on Cipro and Flagyl. He will have a drain in place will monitor daily outputs and follow-up with surgery as outpatient Time Spent with Patient Time attestation: Total time spent providing and/or coordinating discharge services: Exam Const: General: comfortable, no acute distress, well developed, alert, awake, ill appearing acutely and average body habitus Nutritional Appearance: average body habitus Orientation/consciousness: patient oriented x3 HENMT: Head: normal to inspection, normocephalic and atraumatic Ears: hearing grossly normal bilaterally Face/Nose/Sinus: normal facial exam Face and sinus: normal facial exam Eyes: General: appearance normal, both eyes and all related structures Pupils: Equal, round and reactive pupils present EOM: EOMs intact bilaterally Neck: Neck: full ROM, no lymphadenopathy and no JVD Thyroid: thyroid normal Lymphatic: no lymphadenopathy noted Resp: Effort & Inspection: normal respiratory effort and able to speak in complete sentences Auscultation: clear to auscultation bilaterally Cardio: Jugular venous distension: no JVD Rate: regular rate Rhythm: regular rhythm Heart sounds: S1 normal heart sound present and S2 normal heart sound present GI: Inspection: normal to inspection : General: Yes deferred Skin: Rashes: no rashes Wounds: no wounds Neuro: General: patient oriented x3, CN's II-XI intact bilaterally and Unable to assess gait Cranial nerves: Yes CN's II-XII intact bilaterally and Yes Equal, round and reactive pupils present Cognition (Neuro): normal cognition Speech: normal speech Gait exam (Neuro): Unable to assess gait Motor exam (neuro): 5/5 motor strength present throughout Sensory Exam: No Sensory deficit (Neuro) Extrem: General: normal to inspection, full ROM, no joint enlargement and no pedal edema DS: Data Data Completed and Pending Labs on day of discharge: Preliminary micro results at discharge 05/12/22 11:24 Anaerobic Culture - Preliminary Abscess Discharge Plan Discharge Attending physician on discharge: Eamon Lutz Consulting providers: Roby Fernandez Discharging Clinician: Eamon Lutz Patient Disposition: Home, Self-Care Activity: as tolerated Diet: low fiber Discharge Instructions: Empty pigtail catheter daily and record output in mL. Bring daily record of drainage outputs to office visit in 1 week. Okay to shower okay to drive a car Patient Instructions: Antibiotic Form, Pain Management (DC) Stand Alone Forms: General Discharge Information Follow-up/Referrals: Roby Fernandez MD [Physician] - 05/25/22 ( cancel appointment to see me on 05/[address] Fernandez on 05/25) Discharge Medications: New ciprofloxacin HCl 500 mg tablet 500 mg PO Q12H Qty: 14 0RF metronidazole 500 mg tablet 500 mg PO TID Qty: 21 0RF Continued zolpidem 10 mg tablet 5 mg PO
== END 2022-05-18 12:40 | disposition home or self-care (01) | DRG 391 ==
LOC: ANHED 23:23 → ANH3MEDSUR 05-12 00:36
PROVIDERS: Family Medicine; Nurse Practitioner Family; Admitting Provider Internal Medicine; Emergency Provider Emergency Medicine; Visit Provider Chiropractor
DX: K57.20 Diverticulitis of large intestine with perforation and abscess without bleeding (principal); K65.1 Peritoneal abscess; B96.1 Klebsiella pneumoniae [K. pneumoniae] as the cause of diseases classified elsewhere; Z20.822 Contact with and (suspected) exposure to COVID-19; G89.4 Chronic pain syndrome; F11.90 Opioid use, unspecified, uncomplicated; F41.9 Anxiety disorder, unspecified; M25.511 Pain in right shoulder; M10.9 Gout, unspecified; R30.0 Dysuria; Z87.442 Personal history of urinary calculi; Z87.891 Personal history of nicotine dependence; Z98.84 Bariatric surgery status
CPT/HCPCS: 36415; 74177; 75989; 80048; 80053; 81001; 83605; 83690; 85025; 85027; 85610; 85730; 87070; 87075; 87076; 87077; 87186; 87205; 87636; 96374; 99285; A9270; C1729; C1769; J2270; J2543; J7030; J7120; Q9967

== ENCOUNTER 2022-06-03 13:26 | Outpatient (CLI) | payer MEDICARE, SELFPAY ==
[2022-06-03 13:40] LABS: Basophils Absolute Auto 0.1 K/mm3 (0.0-0.1); Basophils Percent Auto 0.4 % (0.2-1.2); Hematocrit 37.1 % (42.0-52.0); Hemoglobin 12.2 g/dL (14.0-18.0); Immature Granulocyte Absolute 0.07 K/mm3 (0.00-0.031); Immature Granulocyte Percent A 0.5 % (0-0.5); Lymphocytes Absolute Auto 2.31 K/mm3 (0.9-3.2); Lymphocytes Percent Auto 16.5 % (18.3-44.2); Mean Corpuscular HGB Conc 32.9 g/dl (32-36); Mean Corpuscular Hemoglobin 29.6 pg (26-34); Mean Platelet Volume 9.8 fl (7.4-10.4); Monocytes Absolute Auto 1.5 K/mm3 (0.1-0.6); Monocytes Percent Auto 10.6 % (2.6-8.5); Neutrophils Absolute Auto 10.1 K/mm3 (1.3-6.7); Platelet Count Result 321 k/mm3 (150-375); Red Blood Count 4.12 M/mm3 (4.6-6.20); Red Cell Distribution Width 14.6 % (11.5-14.5)
== END 2022-06-03 13:27 | disposition home or self-care (01) ==
PROVIDERS: Visit Provider Surgery
DX: K57.80 Diverticulitis of intestine, part unspecified, with perforation and abscess without bleeding (principal)
CPT/HCPCS: 36415; 85025

== ENCOUNTER → 2022-06-03 13:54 | Outpatient (CLI) | payer MEDICARE, SELFPAY ==
--- NOTE | ~2022-06-03 | CT_ITS ---
EXAMINATION: CT abdomen pelvis w con DATE: 06/03/2022 14:28 INDICATION: Recurrent left lower quadrant abdominal pain and fevers TECHNIQUE: Computed tomography (CT) of the abdomen and pelvis was performed with 100 CC Omnipaque 350 intravenous contrast. Automated exposure control and iterative reconstruction technique were employe d. Exam dose: 855.55 mGy-cm total exam DLP. COMPARISON: 05/2022 CT abdomen pelvis FINDINGS: There is minimal dependent atelectasis at the lower lobes. Normal heart size. No pericardia l or pleural effusion. Small sliding hiatal hernia. Laparoscopic gastric band device is present. The liver, gallbladder, bile ducts, pancreas, pancreatic duct, spleen, adrenal glands are unremarkabl e. There is a pinpoint nonobstructing calculus of each kidney. No renal mass lesion, ureteral calculus o r hydroureteronephrosis of either kidney. There is some thickening of the urinary bladder wall which may be due to adjacent inflammatory change due to diverticulitis, cystitis and/or bladder outlet obst ruction due to prostatomegaly. There is atherosclerotic calcification but normal caliber of the abdominal aorta and iliac arteries. No abdominal aortic aneurysm. No intraperitoneal or retroperitoneal or pelvic mass lesion or adenopat hy or ascites. Percutaneous pigtail drainage catheter is been removed since 05/2022. There is substantial increased abscess cavity size, with air-fluid levels since 05/2022. The abscess cavity measures up to 9 cm le ngth along the sigmoid colon, up to 4.1 cm transverse dimension. There is persistent pericolic fat st randing in the sigmoid region consistent with surrounding inflammatory change. No suspicious osteolytic or osteoblastic lesions are noted. Degenerative changes apophyseal joints with associated grade 1 anterolisthesis at L4-5. Moderate dege nerative disc disease at L2-3, L4-5 and L5-S1 IMPRESSION: Interval withdrawal of pigtail drainage catheter and increased abscess cavity size since 05/2022. Persistent prominent pericolic inflammation in the sigmoid colon area Diverticulosis of left and right colon Normal appendix Laparoscopic gastric band Small sliding hiatal hernia Bilateral pinpoint nonobstructing renal calculus Reviewed, dictated and finalized at [facility]. Reviewed, dictated and finalized at [facility]. 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 Persistent prominent pericolic inflammation in the sigmoid colon area Diverticulosis of left and right colon Normal appendix Laparoscopic gastric band Small sliding hiatal hernia Bilateral pinpoint nonobstructing renal calculus
[2022-06-03 14:15] LABS: Estimated Glomerular Filt Rate > 60
== END ==
PROVIDERS: Visit Provider Surgery
DX: K57.80 Diverticulitis of intestine, part unspecified, with perforation and abscess without bleeding (principal); Z98.84 Bariatric surgery status; K44.9 Diaphragmatic hernia without obstruction or gangrene; N20.0 Calculus of kidney
CPT/HCPCS: 74177; Q9967

== ENCOUNTER 2022-06-03 16:03 | Inpatient (IN) | payer MEDICARE, SELFPAY ==
[2022-06-03] VITALS (8 sets, daily range): BP systolic 98–120; BP diastolic 64–82; PULSE 94–122; RESP 14–18; TEMP 36.4; O2SAT 98–100
--- NOTE | ~2022-06-03 | CT_ITS ---
EXAMINATION: CT guide absc cath placement DATE: 06/04/2022 12:41 INDICATION: Peridiverticular abscess. TECHNIQUE: The procedure including the risks, benefits, and alternatives was discussed with the patie nt. Risks discussed included bleeding and infection. The patient understood the risks and benefits an d agreed to proceed. The patient was confirmed to be receiving appropriate antibiotic coverage. The skin overlying the abdomen was prepped and draped in usual sterile fashion. Anesthetic was administe red with 1% lidocaine subcutaneously. Moderate sedation was achieved with 1 mg Versed IV and 50 mg fe ntanyl IV. An 18 gauge trochar needle was inserted into the perisigmoid abscess with CT guidance. The needle was exchanged over a wire for 6 Hungarian and 8 Hungarian dilators and then for an 8.5 Hungarian pigta il catheter. The catheter was stitched to the skin, and a sterile dressing was applied. The mA was ad justed according to patient size. Iterative reconstruction technique was employed. The dose-length pr oduct was 258.59 mGy-cm. There were no immediate complications. FINDINGS: CT images demonstrate the catheter within the perisigmoid abscess. 2 mL fluid was aspirated for testing. IMPRESSION: 1. Successful CT-guided abscess drainage. 2. 2 mL opaque, lino fluid was sent for aerobic and anaerobic cultures. Reviewed, dictated and finalized at [facility]. R WAXER
[2022-06-03 16:26] LABS: Basophils Absolute Auto 0.1 K/mm3 (0.0-0.1); Basophils Percent Auto 0.4 % (0.2-1.2); Hematocrit 37.2 % (42.0-52.0); Hemoglobin 12.2 g/dL (14.0-18.0); Immature Granulocyte Absolute 0.07 K/mm3 (0.00-0.031); Immature Granulocyte Percent A 0.5 % (0-0.5); Lymphocytes Absolute Auto 2.03 K/mm3 (0.9-3.2); Lymphocytes Percent Auto 15.1 % (18.3-44.2); Mean Corpuscular HGB Conc 32.8 g/dl (32-36); Mean Corpuscular Hemoglobin 29.8 pg (26-34); Mean Platelet Volume 10.1 fl (7.4-10.4); Monocytes Absolute Auto 1.3 K/mm3 (0.1-0.6); Monocytes Percent Auto 9.7 % (2.6-8.5); Neutrophils Percent Auto 74.3 % (45.5-73.1); Platelet Count Result 328 k/mm3 (150-375); Red Blood Count 4.09 M/mm3 (4.6-6.20); Red Cell Distribution Width 14.5 % (11.5-14.5); White Blood Count 13.5 K/mm3 (4.5-10.0)
[2022-06-03 16:43] LABS: INR 1.1; Prothrombin Time 13.9 Seconds (11.1-14.7)
[2022-06-03 16:44] LABS: Partial Thromboplastin Time 20.7 SECONDS (22.3-36.8)
[2022-06-03 16:47] LABS: Add Urine Microscopic? YES; Appearance Urine Clear (Clear); Bilirubin Urine Negative (Negative); Blood Urine Trace-Intact (Negative); Color Urine Yellow (Yellow); Glucose Urine UA Negative (Negative); Ketones Urine Negative (Negative); Leukocyte Esterase Ur Negative LEU/UL (Negative); Nitrate Urine Negative (Negative); Protein Urine 1+ mg/dL (Negative); Specific Grav Ur <= 1.005 (1.001-1.035); Urobilinogen Urine 0.2 mg/dL (<2.0)
[2022-06-03 16:50] LABS: Alanine Aminotransferase 51 U/L (6-50); Albumin Level 4.4 g/dL (3.5-5.1); Alkaline Phosphatase 190 U/L (38-126); Anion Gap 10 mmol/L (8-16); Aspartate Amino Transferase 47 U/L (17-59); Bilirubin,Total 2.7 mg/dL (0.2-1.3); Blood Urea Nitrogen 14 mg/dL (9-20); Calcium 9.1 mg/dL (8.4-10.2); Carbon Dioxide 28 mmol/L (22-30); Chloride 97 mmol/L (98-107); Estimated CRCL calculation 88 ml/min; Estimated Glomerular Filt Rate > 60; Glucose 120 mg/dL (65-110); Lipase 39 U/L (23-300); Potassium 4.4 mmol/L (3.4-5.0); Sodium 135 mmol/L (137-145)
[2022-06-03 18:05] LABS: Mucus Urine Rare /lpf; RBC Urine 0-2 /hpf (0-2); WBC Urine 0-3 /hpf
--- NOTE | 2022-06-03 20:52 | ED.GENADULT ---
HPI - General Adult General Chief complaint: Unspecified Stated complaint: sent in for a drain Time Seen by Provider: 06/03/22 20:37 Source: RN notes reviewed History of Present Illness HPI narrative: Patient presents emergency department from home for intra-abdominal abscess. Patient states he has a history of diverticulitis that had an abscess develop he states there is 2 pockets of pus and he had been admitted to the hospital he had a drain into 1 area of abscess and it was felt that the other area might improve with antibiotics the first drain had been removed and he been following up with general surgery he had a CT scan today showing that he continued to have a pocket of abscess and was sent to the ER for further evaluation states he has been running fevers up to 101 ?F with last fever last night states he is currently on Cipro he denies any nausea vomiting diarrhea states he does have some abdominal pain with radiation to his back on the right side Related Data Home Medications Medication Instructions Recorded Confirmed Bitter Melon 900 mg PO DAILY 12/07/19 05/29/22 Curcumin/Tumeric 1 cap PO DAILY 12/07/19 05/29/22 Vitamin B-6 1 tablet PO DAILY 12/07/19 05/29/22 qmyoinszsjz-zgx-[id number]-vitC 2 cap PO DAILY 12/07/19 05/29/22 capsule (Glucosamine Complex-MSM capsule) lorazepam 0.5 mg tablet 0.5 mg PO PRN PRN Anxiety 12/07/19 05/29/22 sertraline 50 mg tablet 50 mg PO DAILY 04/27/22 05/29/22 zolpidem 10 mg tablet 5 mg PO HS 04/27/22 05/29/22 Allergies Allergy/AdvReac Type Severity Reaction Status Date / Time No Known Allergies Allergy Mild Verified 05/28/22 11:12 Review of Systems Review of Systems: Gen.: Denies fevers or chills ENT: Denies congestion Respiratory: Denies shortness of breath or cough CV: Denies chest pain or palpitations GI: See HPI denies burning, urgency, frequency or hematuria Musculoskeletal: Denies back pain or muscle pain Neuro: Denies numbness, tingling, weakness or focal weakness Skin: Denies rash Except as documented, all other systems reviewed and negative PMFSH Past Medical History Medical History Anxiety Chronic pain syndrome Diverticulitis Gout Kidney stones, calcium oxalate Obstructive sleep apnea Resolved with weight loss following lap band procedure. Surgical History Surgical History History of arthroscopy of both shoulders History of hernia repair History of laparoscopic adjustable gastric banding Family History Family History Father FH: kidney cancer Metastatic bone cancer Social History Social History Social History: Surrogate medical decision maker: Elizabeth Painter, mother. Code status: Full code. Smoking packs per day: 1 Smoking cigarettes per day: 20.0 Years smoked: 25 Smoking pack-years: 25.00 Smoking status: Former smoker Alcohol intake: current Drinks per week: 1 Substance use: never Substance use type: does not use Lack of Transportation: No Lack of Food: Never True Current Housing: I Have Housing Concerned About Future Housing: No Difficulty Paying Gas/Electric Bills: No Difficulty Paying for Meds: No Currently Unemployed: No Education: Associate Degree Difficulty w/ Childcare or Family Care: No Additional living arrangements comments: The patient lives in his own home. Additional occupation/education comments: On disability, previously worked in [employer]. Spiritual care concerns: No Exam Narrative: APPEARANCE: No acute distress, nontoxic, resting in bed HEENT: Normocephalic, atraumatic, OMM RESPIRATORY: No respiratory distress, clear to auscultation bilaterally with no rhonchi wheezing or rales CARDIOVASCULAR: RRR s murmur ABDOMINAL: Soft nondistended tender palpa
[2022-06-03] MEDS: SODIUM CHLORIDE 0.9% IV 1,000 ML 999 ML IV CONT (21:16)
[2022-06-03 22:15] LABS: Influenza A QL RT-PCR Negative (Negative); Influenza B QL RT-PCR Negative (Negative); SARS-CoV-2 RNA PCR Negative
--- NOTE | 2022-06-03 22:21 | PM.IMHP ---
H&P: HPI History of Present Illness Date/Time: 06/03/22 22:21 Chief Complaint: Fever Abdominal Pain Narrative: Patient presents emergency department from home for fever with abdominal pain and possible intra-abdominal abscess.? Patient states he has a history of diverticulitis that had an abscess develop he states there is 2 pockets of pus and he had been admitted to the hospital he had a drain into 1 area of abscess and it was felt that the other area might improve with antibiotics the first drain had been removed and he been following up with general surgery he had a CT scan today showing that he continued to have a pocket of abscess and was sent to the ER for further evaluation states he has been running fevers up to 101 ?F with last fever last night states he is currently on Cipro he denies any nausea vomiting diarrhea states he does have some abdominal pain with radiation to his back on the right side Patient denies any SOB and chest pain. Review of Systems Review of Systems: All systems reviewed & are unremarkable except as noted in HPI and below (the history and physical exam) PMFSH Past Medical History Medical History Anxiety Chronic pain syndrome Diverticulitis Gout Kidney stones, calcium oxalate Obstructive sleep apnea Resolved with weight loss following lap band procedure. Surgical History Surgical History History of arthroscopy of both shoulders History of hernia repair History of laparoscopic adjustable gastric banding Family History Family History Father FH: kidney cancer Metastatic bone cancer Social History Social History Social History: Surrogate medical decision maker: Elizabeth Painter, mother. Code status: Full code. Smoking packs per day: 1 Smoking cigarettes per day: 20.0 Years smoked: 25 Smoking pack-years: 25.00 Smoking status: Former smoker Alcohol intake: current Drinks per week: 1 Substance use: never Substance use type: does not use Lack of Transportation: No Lack of Food: Never True Current Housing: I Have Housing Concerned About Future Housing: No Difficulty Paying Gas/Electric Bills: No Difficulty Paying for Meds: No Currently Unemployed: No Education: Associate Degree Difficulty w/ Childcare or Family Care: No Additional living arrangements comments: The patient lives in his own home. Additional occupation/education comments: On disability, previously worked in [employer]. Spiritual care concerns: No Meds Home Medications and Allergies Home Medications Medication Instructions Recorded Confirmed Type Bitter Melon 900 mg PO DAILY 12/07/19 05/29/22 History Curcumin/Tumeric 1 cap PO DAILY 12/07/19 05/29/22 History Vitamin B-6 1 tablet PO DAILY 12/07/19 05/29/22 History yeschqjnbir-kni-ajiepzfqs-vitC 2 cap PO DAILY 12/07/19 05/29/22 History capsule (Glucosamine Complex-MSM capsule) lorazepam 0.5 mg tablet 0.5 mg PO PRN PRN Anxiety 12/07/19 05/29/22 History sertraline 50 mg tablet 50 mg PO DAILY 04/27/22 05/29/22 History zolpidem 10 mg tablet 5 mg PO HS 04/27/22 05/29/22 History Allergies Allergy/AdvReac Type Severity Reaction Status Date / Time No Known Allergies Allergy Mild Verified 05/28/22 11:12 Vital Signs Vital Signs - 24 hr 06/03/22 16:05 06/03/22 20:04 06/03/22 20:57 Temperature 36.4 C Pulse Rate 122 H 109 H Respiratory Rate 14 18 Blood Pressure 116/79 118/77 120/78 Pulse Oximetry 98 100 Oxygen Delivery Room Air 06/03/22 21:01 06/03/22 21:02 06/03/22 21:16 Temperature Pulse Rate 100 109 H 104 H Respiratory Rate Blood Pressure 117/82 105/71 Pulse Oximetry Oxygen Delivery 06/03/22 21:18 06/03/22 21:31 Temperature Pulse Rate 94 Respiratory Rate Blood Pre
[2022-06-03] MEDS: SODIUM CHLORIDE 0.9% IV 1,000 ML 125 ML IV CONT (23:42)
[2022-06-03] MEDS: levoFLOXacin 500 MG/D5W 100 ML 500 MG/100 ML BAG 100 MG IVPB (23:43)
[2022-06-04] VITALS (13 sets, daily range): BP systolic 99–113; BP diastolic 53–72; PULSE 72–97; RESP 14–19; TEMP 36.6–37.1; O2SAT 96–100
[2022-06-04 00:28] LABS: Alanine Aminotransferase 42 U/L (6-50); Albumin Level 4.1 g/dL (3.5-5.1); Alkaline Phosphatase 164 U/L (38-126); Anion Gap 6 mmol/L (8-16); Aspartate Amino Transferase 38 U/L (17-59); Bilirubin,Total 2.3 mg/dL (0.2-1.3); Blood Urea Nitrogen 13 mg/dL (9-20); Calcium 8.6 mg/dL (8.4-10.2); Carbon Dioxide 30 mmol/L (22-30); Chloride 97 mmol/L (98-107); Estimated CRCL calculation 88 ml/min; Estimated Glomerular Filt Rate > 60; Glucose 105 mg/dL (65-110); Potassium 4.1 mmol/L (3.4-5.0); Sodium 133 mmol/L (137-145)
--- NOTE | 2022-06-04 04:12 | ADMGEN ---
This patient, Yevgeniy Painter, was admitted to 3 [facility] Surg Room 322-01. Patient/family oriented to hospital policies and general routines including ID bracelet, bed and alarms, visiting hours, pain management, procedures, bathroom and other care routines, personal items, smoking policy, room service/diet, and visiting hours. Information on how to activate the Rapid Response Team has been discussed. Patient/Family are encouraged to report perceived risks to care and to ask questions if they do not understand what they are told or what they should do.
[2022-06-04 06:34] LABS: Basophils Absolute Auto 0.1 K/mm3 (0.0-0.1); Basophils Percent Auto 0.6 % (0.2-1.2); Hematocrit 31.9 % (42.0-52.0); Hemoglobin 10.2 g/dL (14.0-18.0); Immature Granulocyte Absolute 0.04 K/mm3 (0.00-0.031); Immature Granulocyte Percent A 0.5 % (0-0.5); Lymphocytes Percent Auto 16.4 % (18.3-44.2); Mean Corpuscular Hemoglobin 29.7 pg (26-34); Mean Platelet Volume 10.3 fl (7.4-10.4); Monocytes Absolute Auto 0.9 K/mm3 (0.1-0.6); Monocytes Percent Auto 10.6 % (2.6-8.5); Neutrophils Absolute Auto 6.2 K/mm3 (1.3-6.7); Neutrophils Percent Auto 71.9 % (45.5-73.1); Platelet Count Result 255 k/mm3 (150-375); Red Blood Count 3.43 M/mm3 (4.6-6.20); Red Cell Distribution Width 14.6 % (11.5-14.5); White Blood Count 8.6 K/mm3 (4.5-10.0)
[2022-06-04 06:54] LABS: Alanine Aminotransferase 43 U/L (6-50); Albumin Level 3.8 g/dL (3.5-5.1); Alkaline Phosphatase 174 U/L (38-126); Anion Gap 8 mmol/L (8-16); Aspartate Amino Transferase 37 U/L (17-59); Bilirubin,Total 2.3 mg/dL (0.2-1.3); Blood Urea Nitrogen 11 mg/dL (9-20); Calcium 8.4 mg/dL (8.4-10.2); Carbon Dioxide 25 mmol/L (22-30); Chloride 102 mmol/L (98-107); Estimated CRCL calculation 111 ml/min; Estimated Glomerular Filt Rate > 60; Glucose 103 mg/dL (65-110); Sodium 135 mmol/L (137-145)
[2022-06-04 09:22] LABS: INR 1.1
[2022-06-04 09:23] LABS: Partial Thromboplastin Time 31.5 SECONDS (22.3-36.8)
--- NOTE | 2022-06-04 09:36 | PM.CNGS ---
Assessment and Plan Assessment and plan (1) Intra-abdominal abscess: Code(s): K65.1 - Peritoneal abscess Status: Acute Assessment and Plan: Patient with previous episode of perforated diverticulitis about a month ago with development of retroperitoneal abscesses status post percutaneous drainage with perc drain removal one week ago. Returned with worsening LLQ abdominal pain, right flank pain, and fever/chills. Outpatient CT from yesterday reviewed and showed persistent pericolic sigmoid inflammation with interval increase in size of abscess cavity from previous CT on 05/17/22, now measuring 9 cm x 4.1 cm. Agree with IV Zosyn. We would recommend proceeding with percutaneous drainage of the intra-abdominal abscess in Radiology. Will keep NPO with IV fluids and analgesics as needed for now. (2) Diverticulitis of intestine with perforation and abscess: Code(s): K57.80 - Diverticulitis of intestine, part unspecified, with perforation and abscess without bleeding Status: Acute Assessment and Plan: See plan above. (3) Sepsis: Code(s): A41.9 - Sepsis, unspecified organism Status: Acute Assessment and Plan: Criteria met on admission with leukocytosis, tachycardia, and reported fever in the setting of known infection. Likely secondary to intraabdominal abscess. See plan above for source control. Continue broad-spectrum IV antibiotics, IV fluids, and monitoring. Blood cx pending. (4) Obstructive sleep apnea: Code(s): G47.33 - Obstructive sleep apnea (adult) (pediatric) Status: Chronic (5) Chronic narcotic use: Code(s): F11.90 - Opioid use, unspecified, uncomplicated Status: Chronic Plan I have discussed the patient's case and plan of care with Dr. Calderon. History of Present Illness Consult details Consult date: 06/04/22 Requesting physician: Brigido Lomas DO Narrative: This is a 56-year-old male who is known to our service from two recent hospitalizations regarding perforation sigmoid diverticulitis with abscess. He was initially admitted 04/29/22 - 05/06/22 and treated with levofloxacin and metronidazole for sigmoid diverticulitis with microperforation. He was slow to improve, but was eventually discharged on Augmentin. He returned to the ER and was admitted from 05/11/22 - 05/18/22 for development of a pelvic abscess. He was treated with IV Zosyn and had a percutaneous catheter placed for drainage on 05/12/22. Cultures grew bacteroides fragilis group and Enterobacter, which was not sensitive to the Augmentin. He slowly improved and had a repeat CT prior to discharge on 05/17/22 that showed still a small 3.4 x 1.4 x 1.4 cm perisigmoid abscess. ID pharmacist was consulted and he was eventually discharged on ciprofloxacin and metronidazole for an additional 7 days. He was also discharged home with the percutaneous drain. The patient completed his antibiotics as prescribed and followed up with Dr. Fernandez in our office. He eventually had his percutaneous drain removed on 05/28/22 when his output had decreased and was only minimal. He has been doing well other than having a poor appetite. He reports eating small meals throughout the day and then one larger meal. Over the past 2 days, he developed chills, LLQ abdominal pain, right flank pain, and had a reported fever of 101.5F. He called his PCP yesterday, who had him drop off a urine sample and started him on ciprofloxacin. He only took one dose yesterday. He was instructed to call the surgeon, which he also did yesterday. Dr. Calderon ordered a stat CT scan of the abdomen and pelvis with labs. CT showed increased abscess cavity to 9 x 4.1 cm with persistent prominent pericolic inflammation in the sigmoid colon area. He then presented to the ER for further work-up and treatment. He was admitted. The patient is now seen in consultation for the intraabdominal abscess. In the ER, he was afebrile and tachycardic with a heart rate of 122.
[2022-06-04] MEDS: MORPHINE SULFATE (*CRX) 2 MG/ML INJ IV PUSH (10:09)
--- NOTE | 2022-06-04 11:23 | WPDMODSED ---
Moderate Sedation Note-Pt Data Patient Data Diagnosis: Perisigmoid abscess. Present Complaint: Perisigmoid abscess. Procedure to be performed/Plan: CT-guided perisigmoid abscess drainage. Allergies Allergy/AdvReac Type Severity Reaction Status Date / Time No Known Allergies Allergy Mild Verified 06/04/22 01:52 Home Medications Medication Instructions Recorded Confirmed Type Bitter Melon 900 mg PO DAILY 12/07/19 06/04/22 History Curcumin/Tumeric 1 cap PO DAILY 12/07/19 06/04/22 History Vitamin B-6 1 tablet PO DAILY 12/07/19 06/04/22 History wfetwsggytv-vmg-jlyxxdumn-vitC 2 cap PO DAILY 12/07/19 06/04/22 History capsule (Glucosamine Complex-MSM capsule) lorazepam 0.5 mg tablet 0.5 mg PO BID PRN Anxiety 12/07/19 06/04/22 History sertraline 50 mg tablet 50 mg PO DAILY 04/27/22 06/04/22 History zolpidem 10 mg tablet 5 mg PO HS 04/27/22 06/04/22 History hydrocodone 7.5 mg-acetaminophen 1 tablet PO Q8H PRN Pain 06/04/22 06/04/22 History 325 mg tablet Current Medications: Active Medications Piperacillin/Tazobactam/Dextrose (Zosyn 3.375 Gm/D5w 50ml Pm) 3.375 gm in 50 mls @ 100 mls/hr IVPB Q6H [facility] Last Infusion: 06/04/22 10:39 Dose: Infused Sodium Chloride (Normal Saline Iv) 1,000 mls @ 125 mls/hr IV CONT .Q8H [facility] Last Admin: 06/04/22 08:54 Dose: Not Given Morphine Sulfate (Morphine Sulfate (*Crx) 2 Mg/Ml Inj) 2 mg IV PUSH Q4H PRN PRN Reason: Pain Rated 7-10 Last Admin: 06/04/22 10:09 Dose: 2 mg Sedation/Anesthesia: No previous sedation/anesthesia problems (including family history). COUNTS INCLUDE 234 BEDS AT THE [facility] Past Medical History Medical History Anxiety Chronic pain syndrome Diverticulitis Gout Kidney stones, calcium oxalate Obstructive sleep apnea Resolved with weight loss following lap band procedure. Surgical History Surgical History History of arthroscopy of both shoulders History of hernia repair History of laparoscopic adjustable gastric banding Family History Family History Father FH: kidney cancer Metastatic bone cancer Social History Social History Social History: Surrogate medical decision maker: Elizabeth Painter, mother. Code status: Full code. Smoking packs per day: 1 Smoking cigarettes per day: 20.0 Years smoked: 25 Smoking pack-years: 25.00 Smoking status: Former smoker Alcohol intake: current Drinks per week: 1 Substance use: never Substance use type: does not use Lack of Transportation: No Lack of Food: Never True Current Housing: I Have Housing Concerned About Future Housing: No Difficulty Paying Gas/Electric Bills: No Difficulty Paying for Meds: No Currently Unemployed: No Education: Associate Degree Difficulty w/ Childcare or Family Care: No Additional living arrangements comments: The patient lives in his own home. Additional occupation/education comments: On disability, previously worked in [employer]. Spiritual care concerns: No Mod Sed Physical Exam Physical Exam Pre Procedural Exam: Normal: Airway, Lungs, Heart Rate and Heart Rhythm and Variation: Abdomen (Generalized tenderness with guarding.) Hours since solid foods: 12 Hours since liquid intake: 12 Mallampati Classification: class 1 Internal Medicine - PN: Obj Da Vital Signs Vital Signs: Vital Signs - 24 hr 06/03/22 16:05 06/03/22 20:04 06/03/22 20:57 Temperature 36.4 C Pulse Rate 122 H 109 H Respiratory Rate 14 18 Blood Pressure 116/79 118/77 120/78 Pulse Oximetry 98 100 Oxygen Delivery Room Air 06/03/22 21:01 06/03/22 21:02 06/03/22 21:16 Temperature Pulse Rate 100 109 H 104 H Respiratory Rate Blood Pressure 117/82 105/71 Pulse Oximetry Oxygen Delivery 06/03/22 21:18 06/03/22 21:31 06/04/22
[2022-06-04] MEDS: SODIUM CHLORIDE 0.9% IV 1,000 ML 125 ML IV CONT (13:33)
[2022-06-04] MEDS: MORPHINE SULFATE (*CRX) 4 MG/ML INJ IV PUSH ×3 (15:28→20:57)
--- NOTE | 2022-06-04 19:02 | PM.IMPN ---
Progress Note: A&P Assessment and Plan (1) Intra-abdominal abscess: Code(s): K65.1 - Peritoneal abscess Status: Acute Assessment and Plan: NPO for now. IV fluids and IV antibiotics. Surgical consult (2) Anxiety: Code(s): F41.9 - Anxiety disorder, unspecified Status: Chronic Assessment and Plan: Stable on meds Subjective Date/time seen: 06/04/22 19:02 Patient is feeling much better. Decreased abdominal pain. No nausea or vomiting. No shortness of breaths or chest pain. Mood stable. Review of Systems Review of Systems: All systems reviewed & are unremarkable except as noted in HPI and below (the history and physical exam) Exam Narrative: APPEARANCE:? No acute distress, nontoxic, resting in bed HEENT: Normocephalic, atraumatic, OMM RESPIRATORY: No respiratory distress, clear to auscultation bilaterally with no rhonchi wheezing or rales CARDIOVASCULAR: RRR s murmur ABDOMINAL: Soft nondistended tender palpation right upper quadrant right lower quadrant no tenderness left lower quadrant left lower quadrant no rebound or guarding right flank tenderness MUSCULOSKELETAl: Moves all extremities. No clubbing, cyanosis or edema. NEURO: Awake and alert. Following commands, speech normal, no focal deficits SKIN:: Warm, dry. Normal Color PSYCHIATRIC: Normal affect/mood Objective Data Vital Signs Vital Signs: Vital Signs - 24 hr 06/03/22 20:04 06/03/22 20:57 06/03/22 21:01 Temperature Pulse Rate 109 H 100 Respiratory Rate 18 Blood Pressure 118/77 120/78 117/82 Pulse Oximetry 100 Oxygen Delivery Oxygen Flow Rate 06/03/22 21:02 06/03/22 21:16 06/03/22 21:18 Temperature Pulse Rate 109 H 104 H 94 Respiratory Rate Blood Pressure 105/71 Pulse Oximetry Oxygen Delivery Oxygen Flow Rate 06/03/22 21:31 06/04/22 06:00 06/04/22 11:35 Temperature 36.6 C Pulse Rate 78 84 Respiratory Rate 16 16 Blood Pressure 98/64 L 107/59 L 104/67 Pulse Oximetry 97 99 Oxygen Delivery Room Air Oxygen Flow Rate 06/04/22 11:50 06/04/22 11:55 06/04/22 12:10 Temperature Pulse Rate 87 87 88 Respiratory Rate 18 18 18 Blood Pressure 107/64 104/67 101/65 Pulse Oximetry 100 100 100 Oxygen Delivery Nasal Cannula Nasal Cannula Nasal Cannula Oxygen Flow Rate 3 3 3 06/04/22 12:00 06/04/22 12:05 06/04/22 12:15 Temperature Pulse Rate 97 91 89 Respiratory Rate 19 19 16 Blood Pressure 103/65 112/72 99/53 L Pulse Oximetry 100 100 99 Oxygen Delivery Nasal Cannula Nasal Cannula Nasal Cannula Oxygen Flow Rate 3 3 3 06/04/22 12:20 06/04/22 12:25 06/04/22 12:30 Temperature Pulse Rate 77 78 72 Respiratory Rate 17 17 16 Blood Pressure 104/66 106/66 104/64 Pulse Oximetry 97 97 96 Oxygen Delivery Room Air Room Air Room Air Oxygen Flow Rate 06/04/22 14:00 Temperature 36.7 C Pulse Rate 75 Respiratory Rate 16 Blood Pressure 108/66 Pulse Oximetry 99 Oxygen Delivery Oxygen Flow Rate Intake/Output Intake/Output: Intake & Output 06/01/22 06/02/22 06/03/22 06/04/22 23:59 23:59 23:59 23:59 Intake Total 1050 1810 Output Total 0 Balance 1050 1810 Meds/Results Medications: Active Medications Generic Name Dose Route Start Last Admin Trade Name Freq PRN Reason Stop Dose Admin Piperacillin/Tazobactam/Dextrose 3.375 gm in 50 mls @ 100 mls/hr 06/04/22 03:00 06/04/22 16:12 Zosyn 3.375 Gm/D5w 50ml Pm IVPB Infused Q6H [facility] Infusion Sodium Chloride 1,000 mls @ 125 mls/hr 06/03/22 21:05 06/04/22 13:33 Normal Saline Iv IV CONT 125 mls/hr .Q8H [facility] Administration Acetaminophen 1,000 mg in 100 mls @ 400 mls/hr 06/04/22 12:28 Ofirmev 1,000 Mg Ivpb IVPB 06/05/22 12:27 Q6H PRN Pain Rated 1-3 Levofloxacin/Dextrose 250 mg in 50 mls @ 50 mls/hr 06/04/22 19:05 Levaquin 250 Mg/D5w 50 Ml IVPB Q24H [facility] Morphine Sulfate 2 mg 06/04/22 12:29 Morphine Sulfate (*Crx) 2 Mg/Ml Inj IV PUS
[2022-06-04] MEDS: levoFLOXacin 250 MG/D5W 50 ML 250 MG/50 ML BAG 50 MG IVPB (20:59)
[2022-06-05] MEDS: SODIUM CHLORIDE 0.9% IV 1,000 ML 125 ML IV CONT ×2 (00:56→09:10)
[2022-06-05 05:15] VITALS: BP 113/70; PULSE 80; RESP 14; TEMP 36.5; O2SAT 94
[2022-06-05 08:49] LABS: Basophils Percent Auto 0.6 % (0.2-1.2); Hematocrit 33.8 % (42.0-52.0); Hemoglobin 10.9 g/dL (14.0-18.0); Immature Granulocyte Absolute 0.04 K/mm3 (0.00-0.031); Immature Granulocyte Percent A 0.6 % (0-0.5); Lymphocytes Absolute Auto 1.32 K/mm3 (0.9-3.2); Lymphocytes Percent Auto 19.6 % (18.3-44.2); Mean Corpuscular HGB Conc 32.2 g/dl (32-36); Mean Corpuscular Hemoglobin 28.9 pg (26-34); Mean Corpuscular Volume 89.7 fl (80-100); Mean Platelet Volume 10.2 fl (7.4-10.4); Monocytes Absolute Auto 0.7 K/mm3 (0.1-0.6); Monocytes Percent Auto 10.5 % (2.6-8.5); Neutrophils Absolute Auto 4.6 K/mm3 (1.3-6.7); Neutrophils Percent Auto 68.7 % (45.5-73.1); Platelet Count Result 280 k/mm3 (150-375); Red Blood Count 3.77 M/mm3 (4.6-6.20); Red Cell Distribution Width 14.4 % (11.5-14.5); White Blood Count 6.7 K/mm3 (4.5-10.0)
[2022-06-05 09:07] LABS: Alanine Aminotransferase 37 U/L (6-50); Albumin Level 3.8 g/dL (3.5-5.1); Alkaline Phosphatase 179 U/L (38-126); Anion Gap 7 mmol/L (8-16); Aspartate Amino Transferase 30 U/L (17-59); Bilirubin,Total 1.3 mg/dL (0.2-1.3); Blood Urea Nitrogen 6 mg/dL (9-20); Calcium 8.4 mg/dL (8.4-10.2); Carbon Dioxide 28 mmol/L (22-30); Chloride 104 mmol/L (98-107); Estimated CRCL calculation 111 ml/min; Estimated Glomerular Filt Rate > 60; Glucose 104 mg/dL (65-110); Potassium 3.8 mmol/L (3.4-5.0); Sodium 139 mmol/L (137-145)
--- NOTE | 2022-06-05 09:26 | PM.PNGS ---
Progress Note: A&P Assessment and Plan (1) Diverticulitis of intestine with perforation and abscess: Code(s): K57.80 - Diverticulitis of intestine, part unspecified, with perforation and abscess without bleeding Status: Acute Assessment and Plan: continue Zosyn IV antibiotics. Advanced to low-fiber diet. Good improvement after abscess drainage yesterday. Probably can go home with drain in place in 1-2 days on oral antibiotics. We can get follow-up imaging and plan further management as an outpatient. Subjective Subjective Date/Time Seen: 06/05/22 09:26 Patient reports: no new complaints, pain is less, tolerating liquids well and afebrile Review of Systems Review of Systems: All systems reviewed & are unremarkable except as noted in HPI and below ( HPI and those items noted below) Constitutional: Constitutional: Denies chills and Denies fever(s) Cardiovascular: Cardiovascular: Denies chest pain, Denies diaphoresis, Denies dyspnea and Denies paroxysmal nocturnal dyspnea Respiratory: Respiratory: Denies chest congestion, Denies cough and Denies dyspnea Integumentary/Breasts: Skin/Breast: Denies lesions and Denies rash Exam Const: General: comfortable and no acute distress; No confusion Orientation/consciousness: patient oriented x3 and No confusion GI: Inspection: non-distended, incision ( pigtail drain with serosanguineous fluid out, 40 cc yesterday) and scaphoid GI Palp: Yes Soft to palpation, Yes Tenderness to palpation present (GI) ( left lower quadrant, drain site), No Guarding due to palpation present (GI) and No Rebound tenderness present Neuro: General: patient oriented x3, no focal motor deficits and No confusion Extrem: General: no calf tenderness and no edema Psych: Affect: normal affect Insight: Good insight present (Psych) Judgement: Good judgement present (Psych) Objective Data Vital Signs Vital Signs: Vital Signs - 24 hr 06/04/22 11:35 06/04/22 11:50 06/04/22 11:55 Temperature Pulse Rate 84 87 87 Respiratory Rate 16 18 18 Blood Pressure 104/67 107/64 104/67 Pulse Oximetry 99 100 100 Oxygen Delivery Room Air Nasal Cannula Nasal Cannula Oxygen Flow Rate 3 3 06/04/22 12:10 06/04/22 12:00 06/04/22 12:05 Temperature Pulse Rate 88 97 91 Respiratory Rate 18 19 19 Blood Pressure 101/65 103/65 112/72 Pulse Oximetry 100 100 100 Oxygen Delivery Nasal Cannula Nasal Cannula Nasal Cannula Oxygen Flow Rate 3 3 3 06/04/22 12:15 06/04/22 12:20 06/04/22 12:25 Temperature Pulse Rate 89 77 78 Respiratory Rate 16 17 17 Blood Pressure 99/53 L 104/66 106/66 Pulse Oximetry 99 97 97 Oxygen Delivery Nasal Cannula Room Air Room Air Oxygen Flow Rate 3 06/04/22 12:30 06/04/22 14:00 06/04/22 22:00 Temperature 36.7 C 37.1 C Pulse Rate 72 75 87 Respiratory Rate 16 16 14 Blood Pressure 104/64 108/66 113/70 Pulse Oximetry 96 99 97 Oxygen Delivery Room Air Oxygen Flow Rate 06/04/22 20:00 06/05/22 05:15 Temperature 36.5 C Pulse Rate 80 Respiratory Rate 14 Blood Pressure 113/70 Pulse Oximetry 94 Oxygen Delivery Room Air Oxygen Flow Rate Intake/Output Intake/Output: Intake & Output 06/02/22 06/03/22 06/04/22 06/05/22 23:59 23:59 23:59 23:59 Intake Total 1050 2910 1550 Output Total 0 40 Balance 1050 2910 1510 Meds/Results Medications: Active Medications Generic Name Dose Route Start Last Admin Trade Name Freq PRN Reason Stop Dose Admin Acetaminophen 500 mg 06/05/22 09:23 Acetaminophen 500 Mg Tablet PO Q6H PRN Mild Pain (1-3) or Fever Hydrocodone Bitart/Acetaminophen 1 tab 06/05/22 09:23 Hydrocodone/Acetaminophen (*Crx) 5-325 Mg Tablet PO Q4H PRN Pain Rated 4-6 Hydrocodone Bitart/Acetaminophen 1 tab 06/05/22 09:23 Hydrocodone/Acetaminophen (*Crx) 7.5-325 Mg Tablet PO Q4H PRN Pain Rated 7-10 Enoxaparin Sodium 40 mg 06/06/22 09:00 Enoxaparin 40 Mg/0.4 Ml Syringe SUB-
--- NOTE | 2022-06-05 12:22 | PM.IMPN ---
Progress Note: A&P Assessment and Plan (1) Diverticulitis of intestine with perforation and abscess: Code(s): K57.80 - Diverticulitis of intestine, part unspecified, with perforation and abscess without bleeding Status: Acute Assessment and Plan: The patient is improving clinically. Continue Zosyn IV antibiotics.? Advanced to low-fiber diet.? Good improvement after abscess drainage yesterday.? Blood cultures preliminary results are negative. Wound culture growing mixed bacterial artis. Surgery is following; we appreciate their recommendations. (2) Anxiety: Code(s): F41.9 - Anxiety disorder, unspecified Status: Chronic Assessment and Plan: Stable on meds Subjective Date/time seen: 06/05/22 12:22 Interval history: The patient was seen and examined at the bedside. He reports improvement of his lower abdominal pain. His appetite is poor due to a clear liquid diet. Review of Systems Review of Systems: All systems reviewed & are unremarkable except as noted in HPI and below (the history and physical exam) Constitutional: Constitutional: Reports as per HPI, Denies fatigue and Denies lethargy Eyes: Eyes: Reports as per HPI and Denies blurry vision ENT: Reports system reviewed and no additional complaints, except as documented, Denies dysphagia and Denies epistaxis Cardiovascular: Cardiovascular: Reports no additional cardiovascular complaints, Denies chest pain and Denies pedal edema Respiratory: Respiratory: Denies cough, Denies dyspnea and Denies wheezing Gastrointestinal: Gastrointestinal: Reports as per HPI, Reports abdominal pain, Denies diarrhea, Denies nausea and Denies vomiting Genitourinary: Genitourinary: Reports no additional male genitourinary complaints, Reports as per HPI, Denies hematuria and Denies dysuria Musculoskeletal: Musculoskeletal: Reports no additional musculoskeletal complaints, Reports as per HPI, Denies back pain, Denies arthralgias and Denies neck pain Integumentary/Breasts: Skin/Breast: Reports system reviewed and no additional complaints, except as docu and Denies rash Exam Narrative: APPEARANCE:? No acute distress, nontoxic, resting in bed HEENT: Normocephalic, atraumatic, OMM RESPIRATORY: No respiratory distress, clear to auscultation bilaterally with no rhonchi wheezing or rales CARDIOVASCULAR: RRR s murmur ABDOMINAL: Soft nondistended tender palpation right upper quadrant right lower quadrant no tenderness left lower quadrant left lower quadrant no rebound or guarding right flank tenderness MUSCULOSKELETAl: Moves all extremities. No clubbing, cyanosis or edema. NEURO: Awake and alert. Following commands, speech normal, no focal deficits SKIN:: Warm, dry. Normal Color PSYCHIATRIC: Normal affect/mood Const: General: comfortable and no acute distress HENMT: Mouth: Yes moist mucous membranes Objective Data Vital Signs Vital Signs: Vital Signs - 24 hr 06/04/22 12:25 06/04/22 12:30 06/04/22 14:00 Temperature 98.0 F Pulse Rate 78 72 75 Respiratory Rate 17 16 16 Blood Pressure 106/66 104/64 108/66 Pulse Oximetry 97 96 99 Oxygen Delivery Room Air Room Air 06/04/22 22:00 06/04/22 20:00 06/05/22 05:15 Temperature 98.8 F 97.7 F Pulse Rate 87 80 Respiratory Rate 14 14 Blood Pressure 113/70 113/70 Pulse Oximetry 97 94 Oxygen Delivery Room Air 06/05/22 08:00 Temperature Pulse Rate Respiratory Rate Blood Pressure Pulse Oximetry Oxygen Delivery Room Air Intake/Output Intake/Output: Intake & Output 06/02/22 06/03/22 06/04/22 06/05/22 23:59 23:59 23:59 23:59 Intake Total 1050 2910 1840 Output Total 0 40 Balance 1050 2910 1800 Meds/Results Medications: Active Medications Generic Name Dose Route Start Last Admin Trade Name Freq PRN Reason Stop Dose Admin Acetaminophen 500 mg 06/05/22 09:23 Acetaminophen 500 Mg Tablet PO Q6H PRN Mild Pain (1-3) or Fever Hydrocodone Bitart/Acetami
[2022-06-05 14:00] VITALS: BP 110/72; PULSE 93; RESP 22; TEMP 36.8; O2SAT 100
[2022-06-05] MEDS: ENOXAPARIN 40 MG/0.4 ML SYRINGE SUB-Q (15:53)
[2022-06-05] MEDS: MORPHINE SULFATE (*CRX) 4 MG/ML INJ IV PUSH (15:53)
[2022-06-05] MEDS: HYDROcodone/acetaminophen (*CRX) 7.5-325 MG TABLET 1 TAB PO (17:57)
[2022-06-05 22:00] VITALS: BP 102/64; PULSE 72; RESP 18; TEMP 35.8; O2SAT 97
[2022-06-06 06:00] VITALS: BP 102/61; PULSE 67; RESP 16; TEMP 35.9; O2SAT 98
[2022-06-06 06:44] LABS: Hematocrit 31.9 % (42.0-52.0); Hemoglobin 10.3 g/dL (14.0-18.0); Mean Corpuscular HGB Conc 32.3 g/dl (32-36); Mean Corpuscular Volume 89.9 fl (80-100); Mean Platelet Volume 10.1 fl (7.4-10.4); Platelet Count Result 291 k/mm3 (150-375); Red Blood Count 3.55 M/mm3 (4.6-6.20); Red Cell Distribution Width 14.2 % (11.5-14.5); White Blood Count 5.2 K/mm3 (4.5-10.0)
[2022-06-06 06:55] LABS: Anion Gap 6 mmol/L (8-16); Blood Urea Nitrogen 6 mg/dL (9-20); Calcium 8.7 mg/dL (8.4-10.2); Carbon Dioxide 30 mmol/L (22-30); Chloride 101 mmol/L (98-107); Estimated CRCL calculation 98 ml/min; Estimated Glomerular Filt Rate > 60; Glucose 95 mg/dL (65-110); Potassium 3.9 mmol/L (3.4-5.0); Sodium 137 mmol/L (137-145)
[2022-06-06] MEDS: ENOXAPARIN 40 MG/0.4 ML SYRINGE SUB-Q (08:56)
--- NOTE | 2022-06-06 09:37 | PM.IMPN ---
Progress Note: A&P Assessment and Plan (1) Diverticulitis of intestine with perforation and abscess: Code(s): K57.80 - Diverticulitis of intestine, part unspecified, with perforation and abscess without bleeding Status: Acute Assessment and Plan: The patient is improving clinically. Continue Zosyn IV antibiotics.? Advanced to Regular low-fiber diet ? Blood cultures preliminary results remain negative. Wound culture growing mixed bacterial artis. Surgery is following; we appreciate their recommendations. (2) Anxiety: Code(s): F41.9 - Anxiety disorder, unspecified Status: Chronic Assessment and Plan: Stable on meds Time Spent With Patient Time with patient: less than 15 minutes Subjective Date/time seen: 06/06/22 09:37 Interval history: The patient was seen and examined at the bedside. He reports improvement of his lower abdominal pain. he is tolerating a regular diet. Patient had abdominal pain was showering; his pain has now improved after pain medication. No other complaints. The drainage bag was emptied earlier today with only 20 cc of pus. Review of Systems Review of Systems: All systems reviewed & are unremarkable except as noted in HPI and below (the history and physical exam) Constitutional: Constitutional: Reports as per HPI, Denies fatigue and Denies lethargy Eyes: Eyes: Reports as per HPI and Denies blurry vision ENT: Reports system reviewed and no additional complaints, except as documented, Denies dysphagia, Denies epistaxis and Denies neck pain Cardiovascular: Cardiovascular: Reports no additional cardiovascular complaints, Denies chest pain, Denies pedal edema and Denies dyspnea Respiratory: Respiratory: Denies cough, Denies dyspnea and Denies wheezing Gastrointestinal: Gastrointestinal: Reports as per HPI, Reports abdominal pain, Denies dysphagia, Denies diarrhea, Denies nausea and Denies vomiting Genitourinary: Genitourinary: Reports no additional male genitourinary complaints, Reports as per HPI, Denies hematuria and Denies dysuria Musculoskeletal: Musculoskeletal: Reports no additional musculoskeletal complaints, Reports as per HPI, Denies back pain, Denies arthralgias and Denies neck pain Integumentary/Breasts: Skin/Breast: Reports system reviewed and no additional complaints, except as docu and Denies rash Endocrine: Endocrine: Denies fatigue Allergic/Immunologic: Allergic/Immunologic: Denies wheezing Exam Narrative: APPEARANCE:? No acute distress, nontoxic, resting in bed HEENT: Normocephalic, atraumatic, OMM RESPIRATORY: No respiratory distress, clear to auscultation bilaterally with no rhonchi wheezing or rales CARDIOVASCULAR: RRR s murmur ABDOMINAL: Soft nondistended tender palpation right upper quadrant right lower quadrant no tenderness left lower quadrant left lower quadrant no rebound or guarding right flank tenderness. Right lower quadrant intra-abdominal drain with empty bag in place. MUSCULOSKELETAl: Moves all extremities. No clubbing, cyanosis or edema. NEURO: Awake and alert. Following commands, speech normal, no focal deficits SKIN:: Warm, dry. Normal Color PSYCHIATRIC: Normal affect/mood Const: General: comfortable and no acute distress HENMT: Mouth: Yes moist mucous membranes Objective Data Vital Signs Vital Signs: Vital Signs - 24 hr 06/05/22 14:00 06/05/22 22:00 06/06/22 06:00 Temperature 98.2 F 96.5 F L 96.6 F L Pulse Rate 93 72 67 Respiratory Rate 22 H 18 16 Blood Pressure 110/72 102/64 102/61 Pulse Oximetry 100 97 98 Intake/Output Intake/Output: Intake & Output 06/03/22 06/04/22 06/05/22 06/06/22 23:59 23:59 23:59 23:59 Intake Total 1050 2910 3680 290 Output Total 0 40 685 Balance 1050 2910 3640 -395 Meds/Results Medications: Active Medications Generic Name Dose Route Start Last Admin Trade Name Freq PRN Reason Stop Dose Admin Acetaminophen 500 mg 06/05/22 09:23 Acetaminophen 500
--- NOTE | 2022-06-06 12:08 | PM.PNGS ---
Progress Note: A&P Assessment and Plan (1) Diverticulitis of intestine with perforation and abscess: Code(s): K57.80 - Diverticulitis of intestine, part unspecified, with perforation and abscess without bleeding Status: Acute Assessment and Plan: Continuing to improve. OK to discharge today. Follow up with Dr. Fernandez for drain management. Continue Low Fiber diet. (2) Obstructive sleep apnea: Code(s): G47.33 - Obstructive sleep apnea (adult) (pediatric) Status: Chronic (3) Chronic pain syndrome: Code(s): G89.4 - Chronic pain syndrome Status: Chronic Subjective Subjective Date/Time Seen: 06/06/22 12:08 Interval history: Pain nearly resolved. No nausea or vomiting. No fevers. Exam GI: Inspection: non-distended and other (Slight feculent/purulent drainage in pigtail drain) GI Palp: Yes Soft to palpation, No Tenderness to palpation present (GI), No Guarding due to palpation present (GI) and No Rebound tenderness present Auscultation: normal bowel sounds Objective Data Vital Signs Vital Signs: Vital Signs - 24 hr 06/05/22 14:00 06/05/22 22:00 06/06/22 06:00 Temperature 36.8 C 35.8 C L 35.9 C L Pulse Rate 93 72 67 Respiratory Rate 22 H 18 16 Blood Pressure 110/72 102/64 102/61 Pulse Oximetry 100 97 98 Intake/Output Intake/Output: Intake & Output 06/03/22 06/04/22 06/05/22 06/06/22 23:59 23:59 23:59 23:59 Intake Total 1050 2910 3680 940 Output Total 0 40 685 Balance 1050 2910 3640 255 Meds/Results Medications: Active Medications Generic Name Dose Route Start Last Admin Trade Name Freq PRN Reason Stop Dose Admin Acetaminophen 500 mg 06/05/22 09:23 Acetaminophen 500 Mg Tablet PO Q6H PRN Mild Pain (1-3) or Fever Hydrocodone Bitart/Acetaminophen 1 tab 06/05/22 09:23 Hydrocodone/Acetaminophen (*Crx) 5-325 Mg Tablet PO Q4H PRN Pain Rated 4-6 Hydrocodone Bitart/Acetaminophen 1 tab 06/05/22 09:23 06/05/22 17:57 Hydrocodone/Acetaminophen (*Crx) 7.5-325 Mg Tablet PO 1 tab Q4H PRN Administration Pain Rated 7-10 Enoxaparin Sodium 40 mg 06/06/22 09:00 06/06/22 08:56 Enoxaparin 40 Mg/0.4 Ml Syringe SUB-Q 40 mg DAILY BRITTANY Administration Piperacillin/Tazobactam/Dextrose 3.375 gm in 50 mls @ 100 mls/hr 06/04/22 03:00 06/06/22 09:30 Zosyn 3.375 Gm/D5w 50ml Pm IVPB Infused Q6H BRITTANY Infusion Morphine Sulfate 2 mg 06/04/22 12:29 Morphine Sulfate (*Crx) 2 Mg/Ml Inj IV PUSH Q2H PRN Pain Rated 4-6 Morphine Sulfate 4 mg 06/04/22 12:28 06/05/22 15:53 Morphine Sulfate (*Crx) 4 Mg/Ml Inj IV PUSH 4 mg Q2H PRN Administration Pain Rated 7-10 Radiology Results: ITS Impressions Catheter Placement CT 06/04/22 12:43 IMPRESSION: 1. Successful CT-guided abscess drainage. 2. 2 mL opaque, lino fluid was sent for aerobic and anaerobic cultures. Labs Labs: Laboratory Results - last 24 hr 06/06/22 06/06/22 06:20 06:20 WBC 5.2 RBC 3.55 L Hgb 10.3 L Hct 31.9 L MCV 89.9 MCH 29.0 MCHC 32.3 RDW 14.2 Plt Count 291 MPV 10.1 Sodium 137 Potassium 3.9 Chloride 101 Carbon Dioxide 30 Anion Gap 6 L BUN 6 L Creatinine 0.80 Estim Creat Clear Calc 98 Estimated GFR > 60 Glucose 95 Calcium 8.7
--- NOTE | 2022-06-06 13:04 | PM.DS ---
DS: Admitting Diagnosis Discharge Date 06/06/2022 Admitting Diagnosis Acute diverticulitis. Retroperitoneal abscess DS: Summary Hospital Course Reason for hospitalization: Fever chills and left lower abdominal quadrant pain and right flank pain. Hospital Course: Please refer to admission H& P. Briefly, this is 57-year-old gentleman with a past medical history including but not limited to previous episode of perforated diet for to colitis a months ago with development of retroperitoneal abscesses status post percutaneous drainage with percutaneous drain removal 1 week prior to admission. The patient was in his usual state of health until 2 days prior to admission on 06/03/2022. Due to his history of recurrent pelvic abscesses presumably from diverticulitis, after initially presenting on 04/30 with micro perforation and diverticulitis. he was treated with 1 week of IV antibiotics.? Although he had a gas collection in the pelvis, there was really no drainable abscess.? He was discharge home on 05/06/2022 on p.o. Augmentin oral antibiotics but then presented 6 days later, 05/12/2022, with recurrent pelvic pain and on CT a definite left-sided pelvic abscess.? CT-guided percutaneous drainage was performed.? He improved clinically after the drainage.? Cultures grew Bacteroides fragilis and Enterobacter.? The enterobacter was not sensitive to Augmentin.? He was treated on his 1st admission with Levaquin and metronidazole.? On the 2nd admission he received IV Zosyn.? Enterobacter and Bacteroides are sensitive to each of these IV antibiotics.? He was discharged on 05/18 on ciprofloxacin and metronidazole.? His drain was left in place.? Output from the drain was monitored.? At his initial postop visit on 05/25, the drain was still left in place.? He followed up again on 05/28 and the drain was removed.? Two days ago he began developing chills, fever and left lower quadrant pain as well as right flank pain.? Repeat CT scan showed recurrence of the abscess.? He has been admitted and another percutaneous drain was placed on 06/04/2022..? He is having some intermittent discomfort at the drain site but overall is more comfortable than he was on admission.? He was treated with IV Zosyn and. He continued to improve clinically. Diet was advanced from liquid to low-fiber residue on 06/05/2022. He is tolerating a regular low-fiber diet. Per surgical recommendation it is okay to discharge today 06/06/2022. Patient will follow-up with Dr. Morgan with drain management. He was educated about the need to continue a low-fiber diet. Status at Discharge Cognitive/behavioral status at discharge: At baseline. Functional status at discharge: independent ambulation Overall status at discharge: patient is progressing back to baseline Time Spent with Patient Time attestation: Total time spent providing and/or coordinating discharge services:31 min Time spent: Greater than 30 minutes DS: Data Data Completed and Pending Labs on day of discharge: Labs from last 24 hours 06/06/22 06/06/22 06:20 06:20 WBC 5.2 RBC 3.55 L Hgb 10.3 L Hct 31.9 L MCV 89.9 MCH 29.0 MCHC 32.3 RDW 14.2 Plt Count 291 MPV 10.1 Sodium 137 Potassium 3.9 Chloride 101 Carbon Dioxide 30 Anion Gap 6 L BUN 6 L Creatinine 0.80 Estim Creat Clear Calc 98 Estimated GFR > 60 Glucose 95 Calcium 8.7 Preliminary micro results at discharge 06/04/22 12:20 Anaerobic Culture - Preliminary Abscess Aerobic Culture - Preliminary 06/03/22 17:46 Blood Culture - Preliminary Blood 06/03/22 21:13 Blood Culture - Preliminary Blood Discharge Plan Discharge Attending physician on discharge: Noa Raines Consulting providers: Roby Fernandez Discharging Clinician: Noa Raines Anticipated Discharge Date/Time: 06/06/22 14:00 Patient Disposition: Home, Self-Care Activity: may shower Diet: regular and low fiber Wound Care Instructions:
== END 2022-06-06 14:30 | disposition home or self-care (01) | DRG 872 ==
LOC: ANHED 21:08 → ANH3MEDSUR 23:19
PROVIDERS: Internal Medicine; Radiology Diagnostic Radiology; Surgery; Admitting Provider Internal Medicine; Emergency Provider Emergency Medicine; Visit Provider Internal Medicine
PROC: 0D9N30Z Drainage of Sigmoid Colon with Drainage Device, Percutaneous Approach (ICD-10-PCS; principal; 2022-06-04 11:00)
DX: A41.9 Sepsis, unspecified organism (principal); K57.80 Diverticulitis of intestine, part unspecified, with perforation and abscess without bleeding; F41.9 Anxiety disorder, unspecified; G89.4 Chronic pain syndrome; M10.9 Gout, unspecified; G47.33 Obstructive sleep apnea (adult) (pediatric); Z20.822 Contact with and (suspected) exposure to COVID-19; Z80.51 Family history of malignant neoplasm of kidney; Z80.8 Family history of malignant neoplasm of other organs or systems; Z87.891 Personal history of nicotine dependence; Z79.899 Other long term (current) drug therapy
CPT/HCPCS: 36415; 75989; 80048; 80053; 81001; 83605; 83690; 85025; 85027; 85610; 85730; 87040; 87070; 87075; 87077; 87205; 87636; 96365; 96366; 96367; 99285; A9270; C1729; C1769; G0378; J1650; J1956; J2250; J2270; J2543; J3010; J7030

== ENCOUNTER → 2022-06-24 08:20 | Outpatient (CLI) | payer MEDICARE, SELFPAY ==
--- NOTE | ~2022-06-24 | CT_ITS ---
EXAMINATION: CT abdomen pelvis w con INDICATION: Diverticulitis with abscess TECHNIQUE: Computed tomographic images of the abdomen and pelvis were obtained after the administrati on of 100 cc of Omnipaque 350 intravenous contrast. The dose-length product (DLP) was 716.75 mGy-cm. Automated exposure control and iterative reconstruction technique were employed. COMPARISON: 06/03/2022 FINDINGS: Minimal dependent atelectasis is present in the lung bases. The heart size is normal. Mota es of gastric lap band surgery are noted. The liver, spleen, pancreas, gallbladder, and adrenal gland s are normal. There is a 2 mm nonobstructing stone of the right kidney. There is a 2 mm nonobstructin g stone of the left kidney. There is calcified atherosclerosis of the aorta and many of the other art eries. The appendix is normal. No pathologically enlarged abdominal or pelvic lymph nodes are identif ied. There is a drainage catheter coiled in the left pelvis. The previously described perisigmoid abs cess has resolved. There is a small amount of persistent inflammatory change in the left pelvis. Sigm oid diverticulosis is noted. No free intraperitoneal gas is identified. IMPRESSION: 1. Resolved perisigmoid abscess post catheter drainage. 2. Mild persistent inflammatory change near the sigmoid colon, likely residual due to recent abscess. Reviewed, dictated and finalized at location B. M PRESS TENDER
== END ==
PROVIDERS: Visit Provider Surgery
DX: K57.80 Diverticulitis of intestine, part unspecified, with perforation and abscess without bleeding (principal)
CPT/HCPCS: 74177; Q9967

== ENCOUNTER 2022-07-06 13:48 | Outpatient (CLI) | payer MEDICARE, SELFPAY ==
--- NOTE | 2022-07-06 14:43 | ECG_ITS ---
Measurements Intervals [place] Rate: 81 P: 50 NH: 137 QRS: -22 QRSD: 107 T: 13 QT: 352 QTc: 410 Interpretive Statements SINUS RHYTHM MINIMAL Q WAVES- HIGH LATERAL LEADS BASELINE ARTIFACT- I, II, III, AVR, AVL, AVF, V1-V2 BORDERLINE ECG COMPARED TO ECG 12/08/2019 07:28:42 NO SIGNIFICANT CHANGES Electronically Signed On 07-06-2022 15:19:59 ASSISTANT INVENTORY MANAGER by Guillaume Godinez D.O.
[2022-07-06 15:12] LABS: Basophils Absolute Auto 0.1 K/mm3 (0.0-0.1); Basophils Percent Auto 0.8 % (0.2-1.2); Eosinophils Percent Auto 0.4 % (0-4.4); Hematocrit 39.5 % (42.0-52.0); Hemoglobin 12.7 g/dL (14.0-18.0); Immature Granulocyte Absolute 0.02 K/mm3 (0.00-0.031); Immature Granulocyte Percent A 0.3 % (0-0.5); Lymphocytes Absolute Auto 2.97 K/mm3 (0.9-3.2); Lymphocytes Percent Auto 41.1 % (18.3-44.2); Mean Corpuscular HGB Conc 32.2 g/dl (32-36); Mean Corpuscular Hemoglobin 29.7 pg (26-34); Mean Corpuscular Volume 92.5 fl (80-100); Monocytes Absolute Auto 0.5 K/mm3 (0.1-0.6); Monocytes Percent Auto 7.3 % (2.6-8.5); Neutrophils Absolute Auto 3.6 K/mm3 (1.3-6.7); Neutrophils Percent Auto 50.1 % (45.5-73.1); Platelet Count Result 245 k/mm3 (150-375); Red Blood Count 4.27 M/mm3 (4.6-6.20); Red Cell Distribution Width 15.9 % (11.5-14.5); White Blood Count 7.2 K/mm3 (4.5-10.0)
[2022-07-06 15:23] LABS: Anion Gap 5 mmol/L (8-16); Blood Urea Nitrogen 11 mg/dL (9-20); Carbon Dioxide 31 mmol/L (22-30); Chloride 104 mmol/L (98-107); Estimated Glomerular Filt Rate > 60; Glucose 100 mg/dL (65-110); Potassium 4.7 mmol/L (3.4-5.0); Sodium 140 mmol/L (137-145)
== END 2022-07-06 13:49 | disposition home or self-care (01) ==
PROVIDERS: Visit Provider Surgery
DX: K57.80 Diverticulitis of intestine, part unspecified, with perforation and abscess without bleeding (principal); R94.31 Abnormal electrocardiogram [ECG] [EKG]
CPT/HCPCS: 36415; 80048; 85025; 86850; 86900; 86901; 93005

== ENCOUNTER 2022-07-15 14:54 | Inpatient (IN) | payer MEDICARE, SELFPAY ==
[2022-07-06 13:59] VITALS: BMI 27.3
--- NOTE | 2022-07-06 14:21 | PC.NURSE ---
Report to the Outpatient Waiting Room, entrance under the green pavilion located off [facility], at time _0730 on date __07/15/22 . Planned Procedure Time: 929 . Time changes happen often and if your time is changed the preop area will call you the afternoon before. - You and your visitor will be asked to self-screen and do not enter if you have any COVID symptoms. - Only one visitor is requested with a max of two and NO children visitors are allowed at this time. - The patient visitor may be requested to leave or wait in car when not with patient due to distancing restrictions. - A mask is optional within the hospital. Patients may have clear liquids (water, carbonated beverages, clear teas, apple juice) until 3 hours prior to surgery with a maximum of 20 ounces. - No food from midnight until time of surgery - Infants may have breast milk until 4 hours before surgery, infant formula 6 hours prior to surgery. - Children will be allowed to drink immediately following surgery. If applicable, please bring a bottle or sippy cup to assist with drinking. Juice, water, soda, and popsicles are readily available. For infants on formula, please bring formula the day of surgery. Pacifiers are allowed. Take the following medications with a SIP of water the morning of surgery: ____SERTRALINE,LORAZEPAM,HYDROCODONE IF NEEDED FOR PAIN Medications to discontinue per physician ____ALL VITAMINS AND SUPPLEMENTS 3 DAYS PRE OP .LAST DOSE 07/11/22 HIBICLENS SHOWER DAY BEFORE SURGERY AND MORNING OF SURGERY ENSURE BUNDLE PACK/BOWEL PREP PER DR WANG Please no make-up, nail pakistani, hairspray, perfume, deodorant, or body powder the day of surgery. No jewelry (including any body piercings) or valuables the day of surgery, leave them at home. Please take a shower or bath the night before, or the morning of, surgery with an antibacterial soap. Wear comfortable, loose fitting clothing. Children are encouraged to wear pajamas. - Jewelry must be removed prior to entering the operating room. Rings and piercings that are not removed may be cut off. - The hospital will not accept responsibility for valuables. - Please leave all valuables, including medications, at home the day of surgery. If you are going home after surgery, a licensed driver's education instructor must drive you home. - NO public transportation without another adult if you receive anesthesia. - We recommend that an adult stay with you for 24 hours following discharge. - We also recommend that you do not drive, make important decision, drink alcoholic beverages, or take any drugs that were not prescribed by your health care provider for at least 24 hours after your discharge time. Follow any additional instructions given to you from your surgeon. If you or anyone in your household have experienced Covid symptoms in the past week, please notify your surgeon or the nurse liaison at the phone number below for possible testing. VERBAL AND WRITTEN instructions given to __PATIENT and asked if any additional questions and then verbalized understanding. Patient advised to call surgeon office or pre surgery nurse liaison [phone] if any additional questions.
[2022-07-06 14:35] VITALS: BP 124/81; PULSE 83; RESP 18; TEMP 36.8; O2SAT 100
[2022-07-15] VITALS (21 sets, daily range): BP systolic 98–129; BP diastolic 52–81; PULSE 53–98; RESP 12–20; TEMP 36.1–37.2; O2SAT 94–100; BMI 26.3
--- NOTE | 2022-07-15 07:11 | WPDHPUPDATE1 ---
History and Physical Update Update Date/Time: 07/15/22 07:11 History and Physical has been reviewed, including an updated exam of the patient. There are NO changes in the patient's condition. Risks, benefits, and alternatives have been discussed and questions answered. Patient agrees to proceed with procedure.
[2022-07-15] MEDS: LACTATED RINGERS 1,000 ML 30 ML IV CONT ×2 (08:00→12:30)
[2022-07-15] MEDS: KETOROLAC 15 MG/ML VIAL (*BKC) IV PUSH (08:00)
[2022-07-15] MEDS: ACETAMINOPHEN 500 MG TABLET 1000 MG PO (08:00)
--- NOTE | 2022-07-15 08:56 | WPDANESEPP ---
Anes - Eval Pre Procedure Procedure: Operation Date: 07/15/22 09:30 Proposed Procedures p Hand Assisted Laparoscopic Sigmoidectomy - Roby Fernandez MD Date/Time: 07/15/22 08:56 Pre Op Diagnosis: Diverticulitis with Abscess Patient Data Age: 56 Gender: M Height: 1.8 m Weight: 85.6 kg Last Vital Signs Temp 98.6 F 07/15/22 08:00 Pulse 98 07/15/22 08:00 Resp 16 07/15/22 08:00 BP 129/80 07/15/22 08:00 Pulse Ox 96 07/15/22 08:00 O2 Del Method Room Air 07/15/22 08:00 Allergies Allergy/AdvReac Type Severity Reaction Status Date / Time No Known Allergies Allergy Mild Verified 07/15/22 08:38 Home Medications Medication Instructions Recorded Confirmed Type Bitter Melon 900 mg PO DAILY 12/07/19 07/15/22 History lorazepam 0.5 mg tablet 0.5 mg PO BID PRN Anxiety 12/07/19 07/15/22 History sertraline 50 mg tablet 50 mg PO DAILY 04/27/22 07/06/22 History zolpidem 10 mg tablet 5 mg PO HS 04/27/22 07/15/22 History hydrocodone 7.5 mg-acetaminophen 1 tablet PO Q8H PRN Pain 06/04/22 07/15/22 History 325 mg tablet metronidazole 500 mg tablet 500 mg PO Q8H 10 days #30 tabs 06/06/22 07/15/22 Rx chlorhexidine gluconate 4 % See Rx Instructions .Route 06/16/22 07/15/22 Rx topical liquid (Hibiclens) .COMPLEX #118 mL neomycin 500 mg tablet 1 g PO .COMPLEX #6 tabs 06/16/22 07/15/22 Rx multivitamin (Daily Multi-Vitamin 1 tablet PO DAILY 07/06/22 07/15/22 History tablet) vit C 30 mg-s.frank 250 mg-celery 1 cap PO DAILY 07/06/22 07/15/22 History seed 75 mg-grape seed extrt capsule (Tart Frank) Patient hx anesthesia problems: none Family hx anesthesia problems: none Results Review: All pre-operative results and documents have been reviewed as part of the pre-operative evaluation. [facility] Past Medical History Medical History Anxiety Chronic pain syndrome Diverticulitis Gout Kidney stones, calcium oxalate Obstructive sleep apnea Resolved with weight loss following lap band procedure. Surgical History Surgical History History of arthroscopy of both shoulders History of hernia repair History of laparoscopic adjustable gastric banding Family History Family History Father FH: kidney cancer Metastatic bone cancer Social History Social History Social History: Surrogate medical decision maker: Elizabeth Painter, mother. Code status: Full code. Smoking packs per day: 1 Smoking cigarettes per day: 20.0 Years smoked: 27 Smoking pack-years: 27.00 Smoking status: Former smoker Tobacco type: cigarettes Smoking end date: 06/14/12 Alcohol intake: current Drinks per week: 1 Substance use: never Substance use type: does not use Lack of Transportation: No Lack of Food: Never True Current Housing: I Have Housing Concerned About Future Housing: No Difficulty Paying Gas/Electric Bills: No Difficulty Paying for Meds: No Currently Unemployed: No Education: Associate Degree Difficulty w/ Childcare or Family Care: No Living arrangements: alone Additional living arrangements comments: The patient lives in his own home. Additional occupation/education comments: On disability, previously worked in [employer]. Spiritual care concerns: No Exam Day of Procedure 07/15/22 08:56 Patient weight: overweight Airway: Mallampati scale class II Neurological: alert and oriented
--- NOTE | 2022-07-15 09:05 | P.PNAN_ITS ---
Anes - Eval Final PreProcedure Day of Procedure 07/15/22 09:05 Patient weight: overweight Heart: regular rate and rhythm Lungs: clear to auscultation Airway: Mallampati scale class II Neurological: alert and oriented Last oral intake: >/= 8 hours ASA classification: III Emergent: no Anesthetic plan: proceed Anesthesia type and monitoring: general ETT and standard monitoring Results Review: All pre-operative results and documents have been reviewed as part of the pre- operative evaluation. Informed Consent: The patient's anesthetic plan and its attendant risks and benefits were discussed with the patient/family/POA. Questions were solicited and answers provided to the satisfaction of the patient/family/POA.
[2022-07-15] MEDS: ceFAZolin 2 GM/D5W 50 ML 2 GM/50 ML BAG IVPB (09:12)
[2022-07-15] MEDS: metroNIDAZOLE 500 MG/ISO 100ML 500 MG/100 ML BAG 100 MG IVPB (09:23)
[2022-07-15] MEDS: BUPIVACAINE/EPINEPHRINE 0.5% 10 ML VIAL 30 ML INFILTRATE (11:09)
--- NOTE | 2022-07-15 12:31 | W.PM.PROC2 ---
Procedure Note - Detailed Date of Procedure 07/15/22 Pre-op Diagnosis Diverticulitis with Abscess Post-op Diagnosis Same Procedure Performed Hand access laparoscopic sigmoidectomy with hand-sewn colorectal anastomosis Surgeon Roby Fernandez MD Liquid Fertilizer Servicer Isabel Delgado [facility] Anesthesia General and Local (0.5% Marcaine with epinephrine) Indications Patient had admission to the hospital for diverticulitis with abscess. He had recurrence and readmission. He had a percutaneous abscess drainage catheter placed by Radiology. Eventually this catheter was able to be removed and he has been symptom-free from his diverticulitis for a few weeks. He is taken to surgery now for and access laparoscopic sigmoidectomy for complicated diverticulitis. Findings Small abscess noticed between the sigmoid in the left pelvic sidewall. Dense adhesions and severe inflammation in the retroperitoneum along the left posterior pelvic sidewall. No other significant findings appreciated. Description of Procedure Patient was taken to surgery and induced into general anesthesia. The abdomen is prepped and draped. He was in Tommie stirrups in the lithotomy. Rectal tube and Rust catheter were placed. The proposed hand access port incision was drawn on the skin in the lower abdominal midline. Local was infiltrated in the area of the proposed incision and in the subcutaneous. Incision was made dissection was carried down through the subcutaneous. Additional local was infiltrated into the fascia. Fascia was opened and the rectus muscles were divided in the midline. The peritoneal cavity was then opened. This opening was extended the length of the wound. The Davey GelPort was then placed. With the hand in the abdomen, local was infiltrated in the left lateral upper abdomen. A 10 11 port was placed with my hand over the port site. We insufflated through this port and then placed the camera. A 10 11 port was placed in the midline at the same level as this trocar. Finally a 12 mm port was placed in the right mid abdomen under direct visualization as well. Reviewing the abdomen with the laparoscopic open we were able to see the tubing for the gastric band and were able to avoid it. The small intestine was evacuated out of the pelvis and a laparotomy sponge was placed to hold it there. We reviewed the area of the descending colon and sigmoid colon. The sigmoid colon was adhesed fairly anterior on the left pelvic sidewall with dense adhesions. These were broken up with finger dissection and a small abscess was noted. This was suctioned away. This area was chronically inflamed as there had been previous abscess there. Loculations and dissection were largely done with finger dissection. Eventually the sigmoid colon was able to be mobilized from the left pelvic sidewall in this manner. A laparotomy sponge was placed over the area of dissection and bloody drainage was evacuated. It was no significant bleeding associated but just inflammatory ooze from the dissection. We then looked and found the left ureter. It was unharmed. It was avoided throughout the surgery. Some additional dissection of the sigmoid down into the upper rectum was carried out. The upper rectum was also dissected at its mesentery over the sacral promontory. We did not need to dissect low on the rectum but just to the upper rectum. We were above the peritoneal reflection. I then isolated the inferior mesenteric artery and the superior rectal artery. These were dissected with the LigaSure and then each were was divided with the LigaSure. There was no bleeding. Further mobilization of the sigmoid mesentery was then carried out. A point of pliable descending colon was found. We divided the mesentery of the distal descending colon with the LigaSure up to this point. I then divided the lateral peritoneal attachments to the descending colon up to nearly the splenic flexure. Fortunately there was quite a bit of le
[2022-07-15] MEDS: fentaNYL CITRATE INJ (*CRX) 100 MCG/2 ML VIAL 25 MCG IV PUSH ×2 (13:05→13:10)
--- NOTE | 2022-07-15 13:30 | SUR.PHASEI ---
1330- Patient meets PACU discharge criteria, unit bed unavailable at this time. Patient placed in extended recovery status.
[2022-07-15] MEDS: HYDROcodone/acetaminophen (*CRX) 7.5-325 MG TABLET 1 TAB PO ×2 (15:47→21:34)
[2022-07-15] MEDS: LACTATED RINGERS 1,000 ML 80 ML IV CONT (15:52)
[2022-07-15] MEDS: IBUPROFEN IV 800 MG/200 ML 800 MG/200 ML BAG 400 MG IVPB (15:52)
--- NOTE | 2022-07-15 16:05 | ADMGEN ---
This patient, Yevgeniy Painter, was admitted to [facility] Surg Room 311-01 at 1500. Patient/family oriented to hospital policies and general routines including ID bracelet, bed and alarms, visiting hours, pain management, procedures, bathroom and other care routines, personal items, smoking policy, room service/diet, and visiting hours. Information on how to activate the Rapid Response Team has been discussed. Patient/Family are encouraged to report perceived risks to care and to ask questions if they do not understand what they are told or what they should do.
[2022-07-15] MEDS: ACETAMINOPHEN 500 MG TABLET PO (20:02)
[2022-07-15] MEDS: ZOLPIDEM TARTRATE (*CRX) 5 MG TABLET PO (20:03)
[2022-07-15] MEDS: FAMOTIDINE 20 MG/2 ML VIAL IV PUSH (20:03)
[2022-07-15 20:24] LABS: Glucose Point of Care 175 mg/dl (65-105)
[2022-07-16] MEDS: LACTATED RINGERS 1,000 ML 80 ML IV CONT (04:50)
[2022-07-16] MEDS: HYDROcodone/acetaminophen (*CRX) 10-325 MG TABLET 1 TAB PO ×4 (04:54→21:30)
[2022-07-16 06:00] VITALS: BP 111/71; PULSE 68; RESP 18; TEMP 36.9; O2SAT 96
[2022-07-16 06:17] LABS: Hematocrit 33.8 % (42.0-52.0); Hemoglobin 10.9 g/dL (14.0-18.0); Mean Corpuscular HGB Conc 32.2 g/dl (32-36); Mean Corpuscular Hemoglobin 29.4 pg (26-34); Mean Corpuscular Volume 91.1 fl (80-100); Mean Platelet Volume 10.1 fl (7.4-10.4); Platelet Count Result 258 k/mm3 (150-375); Red Blood Count 3.71 M/mm3 (4.6-6.20); Red Cell Distribution Width 16.6 % (11.5-14.5); White Blood Count 10.1 K/mm3 (4.5-10.0)
[2022-07-16 06:37] LABS: Anion Gap 5 mmol/L (8-16); Blood Urea Nitrogen 12 mg/dL (9-20); Calcium 8.4 mg/dL (8.4-10.2); Carbon Dioxide 29 mmol/L (22-30); Chloride 105 mmol/L (98-107); Estimated CRCL calculation 98 ml/min; Estimated Glomerular Filt Rate > 60; Glucose 115 mg/dL (65-110); Potassium 4.3 mmol/L (3.4-5.0); Sodium 139 mmol/L (137-145)
[2022-07-16] MEDS: ENOXAPARIN 40 MG/0.4 ML SYRINGE SUB-Q (08:56)
[2022-07-16] MEDS: FAMOTIDINE 20 MG/2 ML VIAL IV PUSH ×2 (08:56→20:21)
[2022-07-16] MEDS: SERTRALINE HCL 50 MG TABLET PO (08:56)
--- NOTE | 2022-07-16 09:59 | WPDANESPN ---
Anes - Prog Note Post-Op Date/Time: 07/16/22 09:59 Cardiovascular status: normal Respiratory status: normal Airway patency: baseline Mental status: baseline Post-Op hydration status: normal Vital Signs: Last Vital Signs Temp 36.9 C 07/16/22 06:00 Pulse 68 07/16/22 06:00 Resp 18 07/16/22 06:00 BP 111/71 07/16/22 06:00 Pulse Ox 96 07/16/22 06:00 O2 Del Method Room Air 07/15/22 20:00 O2 Flow Rate 8 07/15/22 12:55 Pain Score (VAS): 0 I/O: Intake & Output 07/15/22 07/16/22 07/16/22 23:59 07:59 15:59 Intake Total 800 1000 Output Total 1050 Balance 800 -50 Laboratory Tests 07/16/22 05:45 07/16/22 05:45 07/15/22 07/16/22 07/16/22 20:05 05:45 05:45 WBC 10.1 H RBC 3.71 L Hgb 10.9 L Hct 33.8 L MCV 91.1 MCH 29.4 MCHC 32.2 RDW 16.6 H Plt Count 258 MPV 10.1 Sodium 139 Potassium 4.3 Chloride 105 Carbon Dioxide 29 Anion Gap 5 L BUN 12 Creatinine 0.80 Estim Creat Clear Calc 98 Estimated GFR > 60 Glucose 115 H POC Capillary Glucose 175 H Calcium 8.4 Post-procedural complaints: none Patient Feedback: Patient satisfied with anesthetic care.
--- NOTE | 2022-07-16 11:35 | PM.PNGS ---
Progress Note: A&P Assessment and Plan (1) Diverticulitis of intestine with perforation and abscess: Code(s): K57.80 - Diverticulitis of intestine, part unspecified, with perforation and abscess without bleeding Status: Acute Assessment and Plan: Status post WENDI sigmoidectomy yesterday by Dr. Fernandez. Doing well today. Tolerating full liquids and having some bowel function. Continue to slowly advance diet to low fiber. Will stop IV fluids. Encouraged to increase activity and try ambulating in the halls today as tolerated. Pathology pending. Repeat labs tomorrow. (2) Chronic narcotic use: Code(s): F11.90 - Opioid use, unspecified, uncomplicated Status: Chronic Assessment and Plan: Had some issues with pain control last night, but this has improved and seems to be controlled with Gantt this morning. Plan I have discussed the patient's case and plan of care with Dr. Fernandez. Subjective Subjective Date/Time Seen: 07/16/22 09:35 Patient reports: tolerating liquids well, voiding w/o difficulty, flatus, bowel movement and afebrile Interval history: Patient overall feeling comfortable this morning. He had some issues with lower abdominal pain last night that he felt was aggravated by gas. His pain is primarily at the hand port incision site in the lower mid abdomen. This is mostly painful with movement and sitting up straight. This has improved this morning and is being controlled with the Gantt. Denies any nausea, vomiting, or bloating. Tolerated full liquids today. He is passing flatus and had two small liquid stools, one last night and one this morning. He does report a very slight amount of blood noted in his stool last night, but none this morning. Review of Systems Review of Systems: All systems reviewed & are unremarkable except as noted in HPI and below Constitutional: Constitutional: Reports no additional constitutional complaints, Denies chills, Denies fever(s) and Denies headache(s) Cardiovascular: Cardiovascular: Reports no additional cardiovascular complaints and Denies chest pain Respiratory: Respiratory: Reports no additional respiratory complaints and Denies dyspnea Gastrointestinal: Gastrointestinal: Reports as per HPI and Reports no additional gastrointestinal complaints Exam Const: General: comfortable, no acute distress and awake Orientation/consciousness: patient oriented x3 GI: Inspection: non-distended and incision (incisions dry and intact) GI Palp: Yes Soft to palpation, Yes Tenderness to palpation present (GI) (incisional, mostly at larger suprapubic incision from the hand port site), No Guarding due to palpation present (GI), No Hernia present and No Rebound tenderness present Auscultation: normal bowel sounds Neuro: General: moves all extremities and no focal motor deficits Extrem: General: no calf tenderness and no edema Psych: Mental Status: mental status grossly normal Insight: Good insight present (Psych) Objective Data Vital Signs Vital Signs: Vital Signs - 24 hr 07/15/22 12:30 07/15/22 12:37 07/15/22 12:45 Temperature 98.5 F Pulse Rate 61 67 66 Respiratory Rate 12 12 13 Blood Pressure 98/56 L 100/57 L 105/61 Pulse Oximetry 100 100 100 Oxygen Delivery Simple Face Mask Simple Face Mask Simple Face Mask Oxygen Flow Rate 8 8 8 07/15/22 12:55 07/15/22 13:05 07/15/22 13:00 Temperature 98.7 F Pulse Rate 61 70 68 Respiratory Rate 12 15 20 Blood Pressure 109/57 L 106/62 107/59 L Pulse Oximetry 100 95 94 Oxygen Delivery Simple Face Mask Room Air Room Air Oxygen Flow Rate 8 07/15/22 13:20 07/15/22 13:30 07/15/22 13:40 Temperature 98.6 F Pulse Rate 71 69 70 Respiratory Rate 16 17 15 Blood Pressure 101/63 111/58 L 102/52 L Pulse Oximetry 95 94 94 Oxygen Delivery Room Air Room Air Room Air Oxygen Flow Rate 07/15/22 13:55 07/15/22 14:05 07/15/22 14:15 Temperature Pulse Rate 70 68 73 Respiratory Rate 18 20 18 Blood Pressure
[2022-07-16 14:00] VITALS: BP 102/60; PULSE 63; RESP 16; TEMP 36.4; O2SAT 99
[2022-07-16] MEDS: ZOLPIDEM TARTRATE (*CRX) 5 MG TABLET PO (20:21)
[2022-07-16 21:33] VITALS: BP 108/67; PULSE 73; RESP 14; TEMP 36.4; O2SAT 97
[2022-07-17] MEDS: HYDROcodone/acetaminophen (*CRX) 10-325 MG TABLET 1 TAB PO ×4 (04:35→20:57)
[2022-07-17 06:00] VITALS: BP 127/75; PULSE 67; RESP 13; TEMP 36.3; O2SAT 97
[2022-07-17 06:02] LABS: Hematocrit 34.4 % (42.0-52.0); Hemoglobin 10.9 g/dL (14.0-18.0); Mean Corpuscular HGB Conc 31.7 g/dl (32-36); Mean Corpuscular Hemoglobin 29.7 pg (26-34); Mean Corpuscular Volume 93.7 fl (80-100); Mean Platelet Volume 10.2 fl (7.4-10.4); Platelet Count Result 256 k/mm3 (150-375); Red Blood Count 3.67 M/mm3 (4.6-6.20); Red Cell Distribution Width 16.5 % (11.5-14.5); White Blood Count 8.2 K/mm3 (4.5-10.0)
[2022-07-17 06:19] LABS: Anion Gap 4 mmol/L (8-16); Blood Urea Nitrogen 12 mg/dL (9-20); Calcium 8.1 mg/dL (8.4-10.2); Carbon Dioxide 31 mmol/L (22-30); Chloride 99 mmol/L (98-107); Estimated CRCL calculation 111 ml/min; Estimated Glomerular Filt Rate > 60; Glucose 101 mg/dL (65-110); Sodium 134 mmol/L (137-145)
[2022-07-17] MEDS: FAMOTIDINE 20 MG/2 ML VIAL IV PUSH ×2 (08:45→21:37)
[2022-07-17] MEDS: ENOXAPARIN 40 MG/0.4 ML SYRINGE SUB-Q (08:45)
[2022-07-17] MEDS: SERTRALINE HCL 50 MG TABLET PO (08:45)
[2022-07-17 14:00] VITALS: BP 111/77; PULSE 84; RESP 20; TEMP 36.6; O2SAT 98
--- NOTE | 2022-07-17 16:28 | WPDPN ---
Progress Note: A&P Assessment and Plan (1) Diverticulitis of intestine with perforation and abscess: Code(s): K57.80 - Diverticulitis of intestine, part unspecified, with perforation and abscess without bleeding Status: Acute Assessment and Plan: The patient is postop day 2 after a uncomplicated hand assisted laparoscopic sigmoid colon resection and anastomosis. He has been advancing diet well and is ambulating well. Will continue his dx regular diet today and if he continues to do well tomorrow will plan on discharge tomorrow. Subjective Date/time seen: 07/17/22 16:28 Interval history: The patient is doing well postop day 2 after a hand assisted sigmoid colon resection for diverticulitis. He has been advanced to solid food this morning and he has to be tolerating it well. He has been passing flatus and actually had a bowel movement today. He has been able to ambulate to the bathroom on his own and walk around the nurse's station. Review of Systems Review of Systems: The remainder of the review of systems to include constitutional, HEENT, cardiovascular, respiratory, GI, , integumentary, musculoskeletal, endocrine, immunologic, hematologic, psychiatric, and neurologic are all negative except for which is mentioned above in the HPI. Exam Const: General: comfortable and no acute distress Resp: Effort & Inspection: normal respiratory effort Auscultation: clear to auscultation bilaterally Cardio: Rhythm: regular rhythm GI: Other: The abdomen soft and nondistended. The port site incisions are all healing well. The midline extraction site the lower abdomen has some ecchymosis but no hematoma or spreading redness. He has good bowel sounds. Neuro: Speech: normal speech Motor exam (neuro): 5/5 motor strength present throughout Sensory Exam: normal sensation Extrem: General: normal to inspection Psych: Mental Status: mental status grossly normal Affect: normal affect Objective Data Vital Signs Vital Signs: Vital Signs - 24 hr 07/16/22 21:33 07/16/22 21:30 07/17/22 06:00 Temperature 36.4 C 36.3 C L Pulse Rate 73 67 Respiratory Rate 14 13 Blood Pressure 108/67 127/75 Pulse Oximetry 97 97 Oxygen Delivery Room Air 07/17/22 14:00 Temperature 36.6 C Pulse Rate 84 Respiratory Rate 20 Blood Pressure 111/77 Pulse Oximetry 98 Oxygen Delivery Intake/Output Intake/Output: Intake & Output 07/14/22 07/15/22 07/16/22 07/17/22 23:59 23:59 23:59 23:59 Intake Total 1550 2380 1470 Output Total 1450 Balance 1766 409 7399 Meds/Results Medications: Active Medications Generic Name Dose Route Start Last Admin Trade Name Freq PRN Reason Stop Dose Admin Acetaminophen 500 mg 07/15/22 14:54 07/15/22 20:02 Acetaminophen 500 Mg Tablet PO 500 mg Q6H PRN Administration Mild Pain (1-3) or Fever Hydrocodone Bitart/Acetaminophen 1 tab 07/15/22 14:54 07/17/22 16:01 Hydrocodone/Acetaminophen (*Crx) 10-325 Mg Tablet PO 1 tab Q4H PRN Administration Pain Rated 7-10 Hydrocodone Bitart/Acetaminophen 1 tab 07/15/22 14:54 07/15/22 21:34 Hydrocodone/Acetaminophen (*Crx) 7.5-325 Mg Tablet PO 1 tab Q6H PRN Administration Pain Rated 4-6 Enoxaparin Sodium 40 mg 07/16/22 09:00 07/17/22 08:45 Enoxaparin 40 Mg/0.4 Ml Syringe SUB-Q 40 mg DAILY BRITTANY Administration Famotidine 20 mg 07/15/22 21:00 07/17/22 08:45 Famotidine 20 Mg/2 Ml Vial IV PUSH 20 mg Q12HR BRITTANY Administration Hydromorphone HCl 1 mg 07/15/22 14:54 Hydromorphone Hcl Inj (*Crx) 1 Mg/Ml Syr IV PUSH Q2H PRN Pain Rated 7-10 Hydromorphone HCl 0.5 mg 07/15/22 14:54 Hydromorphone Hcl Inj (*Crx) 1 Mg/Ml Syr IV PUSH Q2H PRN Pain Rated 4-6 Ibuprofen 800 mg in 200 mls @ 400 mls/hr 07/15/22 14:54 07/15/22 16:22 Caldolor 800 Mg/200 Ml IVPB Infused Q6H PRN Infusion Pain Rated 1-3 Lorazepam 0.5 mg 07/15/22 14:54 Anna
[2022-07-17] MEDS: ZOLPIDEM TARTRATE (*CRX) 5 MG TABLET PO (21:44)
[2022-07-17 22:00] VITALS: BP 117/74; PULSE 72; RESP 18; TEMP 36.9; O2SAT 97
[2022-07-18] MEDS: HYDROcodone/acetaminophen (*CRX) 10-325 MG TABLET 1 TAB PO ×2 (04:05→09:53)
[2022-07-18 06:00] VITALS: BP 113/72; PULSE 65; RESP 18; TEMP 36.9; O2SAT 95
[2022-07-18 06:59] LABS: Hemoglobin 11.5 g/dL (14.0-18.0); Mean Corpuscular HGB Conc 31.9 g/dl (32-36); Mean Corpuscular Hemoglobin 29.7 pg (26-34); Mean Platelet Volume 10.7 fl (7.4-10.4); Platelet Count Result 281 k/mm3 (150-375); Red Blood Count 3.87 M/mm3 (4.6-6.20); Red Cell Distribution Width 16.2 % (11.5-14.5); White Blood Count 7.1 K/mm3 (4.5-10.0)
[2022-07-18 07:10] LABS: Anion Gap 5 mmol/L (8-16); Blood Urea Nitrogen 10 mg/dL (9-20); Calcium 8.6 mg/dL (8.4-10.2); Carbon Dioxide 31 mmol/L (22-30); Chloride 100 mmol/L (98-107); Estimated CRCL calculation 111 ml/min; Estimated Glomerular Filt Rate > 60; Glucose 87 mg/dL (65-110); Potassium 4.2 mmol/L (3.4-5.0); Sodium 136 mmol/L (137-145)
[2022-07-18] MEDS: SERTRALINE HCL 50 MG TABLET PO (09:54)
[2022-07-18] MEDS: ENOXAPARIN 40 MG/0.4 ML SYRINGE SUB-Q (09:54)
[2022-07-18] MEDS: FAMOTIDINE 20 MG/2 ML VIAL IV PUSH (09:55)
[2022-07-18 10:35] VITALS: O2SAT 95
--- NOTE | 2022-07-18 10:47 | PM.DS ---
DS: Admitting Diagnosis Discharge Date July 18, 2022 Admitting Diagnosis Sigmoid diverticulitis DS: Discharge Diagnosis Discharge Diagnosis (1) Diverticulitis of intestine with perforation and abscess: Code(s): K57.80 - Diverticulitis of intestine, part unspecified, with perforation and abscess without bleeding Status: Acute DS: Summary Hospital Course Hospital Course: Patient came to [facility] on July 15, 2022 and then went to the operating room where Dr. Fernandez performed a uncomplicated hand assisted laparoscopic sigmoid colon resection for diverticulitis. Postoperatively his course in the recovery was uneventful and he was transferred to the surgical floor for continued postoperative management. Following the surgical floor he did very well and was started on clear liquids on postop day 1. He eventually was able to tolerate a regular diet of course the next 2 days. He started having bowel movements on postop day number 2. He remained afebrile during his hospitalization. His blood cell count was normal and electrolytes are normal. His abdominal exam reveals some ecchymosis around the incisions and some expected tenderness but otherwise was benign. On postop day 3. The patient was ambulated to the bathroom without difficulty and tolerating a regular diet. His pain was controlled on oral narcotic pain medications and he was deemed stable enough to be discharged home. Status at Discharge Functional status at discharge: independent ambulation Overall status at discharge: patient is progressing back to baseline Time Spent with Patient Time attestation: Total time spent providing and/or coordinating discharge services: Time spent: Less than 30 minutes Exam Narrative: Abdomen is soft and nondistended. Surgical incisions are all healing well. Mild ecchymosis around the lower midline incision but no hematoma or redness. Abdomen is benign. Const: General: comfortable and no acute distress Resp: Effort & Inspection: normal respiratory effort Auscultation: clear to auscultation bilaterally Cardio: Rate: regular rate Rhythm: regular rhythm Neuro: General: gait normal Sensory Exam: normal sensation Extrem: General: normal to inspection Psych: Mental Status: mental status grossly normal Affect: normal affect DS: Data Data Completed and Pending Completed studies during hospitalization: Pending at discharge 07/15/22 11:06 Surgical [PTH] Routine Labs on day of discharge: Labs from last 24 hours 07/18/22 07/18/22 05:53 05:53 WBC 7.1 RBC 3.87 L Hgb 11.5 L Hct 36.0 L MCV 93.0 MCH 29.7 MCHC 31.9 L RDW 16.2 H Plt Count 281 MPV 10.7 H Sodium 136 L Potassium 4.2 Chloride 100 Carbon Dioxide 31 H Anion Gap 5 L BUN 10 Creatinine 0.70 Estim Creat Clear Calc 111 Estimated GFR > 60 Glucose 87 Calcium 8.6 Discharge Plan Discharge Attending physician on discharge: Roby Fernandez Discharging Clinician: Cullen Arboleda Anticipated Discharge Date/Time: 07/18/22 10:42 Patient Disposition: Home, Self-Care Activity: other - see discharge instructions Diet: regular Wound Care Instructions: other - see discharge instructions Discharge Instructions: Discharge patient home in stable. May remove dressing in 24 hr and then shower. No soaking incision under water x2 weeks. Protect surgical site from any trauma. Follow up in the office with Dr. Fernandez in 2 weeks. Call [phone] for an appointment. Resume home medications and any prescriptions for postoperative narcotic medication will be sent to the patient's pharmacy. No lifting more than 5-10 pounds x 4-[address] x 1 week or while taking narcotic pain meds. Patient Instructions: Antibiotic Form Stand Alone Forms: General Discharge Information Follow-up/Referrals: Roby Fernandez MD [Physician] - Discharge Medications: New hydrocodone-acetami
== END 2022-07-18 11:50 | disposition home or self-care (01) | DRG 331 ==
LOC: ANH3MEDSUR 14:55
PROVIDERS: Admitting Provider Surgery; Visit Provider Surgery
PROC: 0D1E4Z4 Bypass Large Intestine to Cutaneous, Percutaneous Endoscopic Approach (ICD-10-PCS; principal; 2022-07-15 09:30)
DX: K57.20 Diverticulitis of large intestine with perforation and abscess without bleeding (principal); G89.4 Chronic pain syndrome; F41.9 Anxiety disorder, unspecified; G47.33 Obstructive sleep apnea (adult) (pediatric); F11.90 Opioid use, unspecified, uncomplicated; Z87.891 Personal history of nicotine dependence; Z87.442 Personal history of urinary calculi; Z98.84 Bariatric surgery status
CPT/HCPCS: 36415; 80048; 82948; 85027; 88307; A9270; C1713; C1729; J0690; J1100; J1170; J1650; J1741; J1885; J2250; J2405; J2704; J2710; J3010; J7120

== ENCOUNTER 2022-08-24 13:56 | Outpatient (CLI) | payer MEDICARE, SELFPAY ==
--- NOTE | ~2022-08-24 | CT_ITS ---
EXAMINATION: CT abdomen pelvis w con DATE: 08/24/2022 15:18 INDICATION: Perisigmoid abscess. TECHNIQUE: Computed tomography (CT) of the abdomen and pelvis was performed with 100 mL Omnipaque 350 intravenous contrast. Automated exposure control and iterative reconstruction technique were employe d. The dose-length product was 551.13 mGy-cm. COMPARISON: CT abdomen and pelvis 06/24/2022 FINDINGS: The visualized portions of the lung bases demonstrate mild atelectasis. No pleural effusion . The heart size is normal. No pericardial effusion. There is a lap band in expected position. The li jina, gallbladder, spleen, pancreas, adrenal glands, and kidneys are normal. The prostate is mildly en larged. There is diverticulosis of the colon without evidence of diverticulitis. There are no dilated loops of bowel. The appendix is normal. There are likely changes of left inguinal hernia repair. The re are no pathologically enlarged lymph nodes. There is no free intraperitoneal fluid. There is moder ate lumbar spondylosis. IMPRESSION: 1. No abscess. Reviewed, dictated and finalized at location A. IMPRESSION: 1. No abscess.
== END 2022-08-24 13:57 | disposition home or self-care (01) ==
PROVIDERS: Visit Provider Surgery
DX: R10.31 Right lower quadrant pain (principal); Z90.49 Acquired absence of other specified parts of digestive tract
CPT/HCPCS: 74177; Q9967

== ENCOUNTER 2022-11-11 13:17 | Outpatient (CLI) | payer OTHER, SELFPAY ==
--- NOTE | ~2022-11-11 | XR_ITS ---
Right Shoulder Technique: AP and scapular Y views were obtained. Clinical History: Pain COMPARISON: 07/02/2020 Findings: No fracture or dislocation is seen. Right humeral head suture anchors are again present. Os seous alignment is anatomic. The glenohumeral and acromioclavicular joint spaces are preserved. Soft tissues are unremarkable. Impression: No change from prior exam. Right humeral head suturing areas remain in place. Reviewed, dictated and finalized at location M. Impression: No change from prior exam. Right humeral head suturing areas remain in place.
== END 2022-11-11 13:18 | disposition home or self-care (01) ==
PROVIDERS: Visit Provider Pain Medicine Interventional Pain Medicine
DX: M25.519 Pain in unspecified shoulder (principal)
CPT/HCPCS: 73030